=== PATIENT | male | born 1970 | race Caucasian/White ===

== ENCOUNTER → 2017-03-30 | Outpatient (REF) | payer OTHER ==
--- NOTE | 2017-03-30 15:24 | REP ---
Clinical: Left lower extremity pain and swelling . Technique: Silver scale and color Doppler evaluation using linear high frequency transducer. Findings: Ultrasound examination of the left lower extremity deep venous structures from the common femoral vein to the popliteal vein demonstrates normal compressibility flow and wave patterns in response to respiration and augmentation. Marked subcutaneous soft tissue swelling noted. There is no evidence for deep venous thrombosis. Incidental note is made of inguinal lymph nodes measuring up to 4.7 x 1.9 x 1.8 cm. Impression: No evidence for deep venous thrombosis. Marked subcutaneous edematous changes. Signed by Dany Thakkar MD 03/30/2017 03:15 P
== END ==
LOC: M RAD 14:35
PROVIDERS: ATTEND Family Medicine
DX: R60.0 Localized edema (principal); M79.662 Pain in left lower leg; M79.89 Other specified soft tissue disorders

== ENCOUNTER 2018-11-17 11:25 | Observation (INO) | payer OTHER, MEDICARE ==
[~2018-11-17] VITALS: Ht 177.8 cm; Wt 135.1 kg
[2018-11-17] MEDS ORDERED: OXYC-517 PO (11:41)
[2018-11-17] MEDS ORDERED: COUM1TAB17 PO (11:41)
[2018-11-17] MEDS ORDERED: ACYC400T PO (11:41)
[2018-11-17] MEDS ORDERED: VENL150C43 (11:41)
[2018-11-17] MEDS ORDERED: MELO15TA28 (11:41)
[2018-11-17] MEDS ORDERED: CALC1TAB63 PO (11:41)
[2018-11-17] MEDS ORDERED: [UNRECOGNIZED DRUG - CODE] PO (11:41)
[2018-11-17] MEDS ORDERED: MAG400TA PO (11:41)
[2018-11-17] MEDS ORDERED: BUPR-365 PO (11:41)
[2018-11-17] MEDS ORDERED: OMEP-218 PO (11:41)
[2018-11-17] MEDS ORDERED: METH5TA PO (11:41)
[2018-11-17] MEDS ORDERED: TERA10CA3 PO (11:41)
[2018-11-17] MEDS ORDERED: SERO200T PO (11:41)
[2018-11-17] MEDS ORDERED: LOVE1INJ SC (11:41)
[2018-11-17] MEDS ORDERED: ZINC220C7 PO (11:41)
[2018-11-17] MEDS ORDERED: BACL10TA2 PO (11:41)
[2018-11-17] MEDS ORDERED: NS 1,000 ML IV ONE (12:00)
[2018-11-17 12:07] LABS: BASO # 0.1 10^3/uL (0.0-0.2); BASO % 0.8 % (0.0-1.0); EOS # 0.5 10^3/uL (0.0-0.50); EOS % 4.5 % (0.0-3.0); HEMATOCRIT 38.6 % (42.0-52.0); HEMOGLOBIN 13.3 g/dl (13.5-17.5); LYMPH # 2.9 10^3/uL (1.5-4.5); MEAN CORPUSCULAR HEMOGLOBIN 32.1 pg (27.0-33.0); MEAN CORPUSCULAR HGB CONC 34.5 g/dl (32.0-36.5); MEAN CORPUSCULAR VOLUME 93.2 fl (80.0-96.0); MONO % 8.8 % (0.0-5.0); NEUTROPHILS # 7.2 10^3/uL (1.8-7.7); NEUTROPHILS % 60.5 % (36.0-66.0); PLATELET COUNT, AUTOMATED 317 10^3/uL (150-450); RED BLOOD COUNT 4.14 10^6/uL (4.30-6.10); WHITE BLOOD COUNT 11.9 10^3/uL (4.0-10.0)
[2018-11-17 12:17] LABS: INR 1.16; PROTHROMBIN TIME 14.5 SECONDS (11.8-14.0)
[2018-11-17 12:33] LABS: BLOOD UREA NITROGEN 8 MG/DL (7-18); CALCIUM LEVEL 9.1 MG/DL (8.5-10.1); CARBON DIOXIDE LEVEL 30 MEQ/L (21-32); CHLORIDE LEVEL 102 MEQ/L (98-107); CK-MB VALUE MASS 2.6 NG/ML (<3.6); CPK CREATINE PHOSPHOKINASE 110 U/L (39-308); CREATININE FOR GFR 0.89 MG/DL (0.70-1.30); GLOMERULAR FILTRATION RATE > 60.0 (>60); GLUCOSE, FASTING 116 MG/DL (70-100); MB/CK RELATIVE INDEX 2.36 (< OR =4); POTASSIUM SERUM 4.2 MEQ/L (3.5-5.1); SODIUM LEVEL 141 MEQ/L (136-145); TROPONIN I < 0.02 NG/ML (< 0.10)
[2018-11-17] MEDS ORDERED: ISOVUE-370 76% 100ML VIAL (Q9967) As Ordered ONE (12:49)
--- NOTE | 2018-11-17 13:23 | REP ---
Clinical: Shortness of breath. Technique: Axial contrast enhanced images from the thoracic inlet to the upper abdomen using 100 ml Isovue 370 intravenous contrast material with multiplanar re-formations using pulmonary embolus technique. Findings: Satisfactory enhancement of the pulmonary vasculature is achieved. Pulmonary emboli are identified in the left main pulmonary artery extending into the left upper lobe, lingula and left lower lobe pulmonary arteries. Pulmonary emboli identified in the right main pulmonary artery extending into the proximal upper lobe pulmonary artery and right lower lobe pulmonary arteries. The bilateral lung blackman are relatively clear and without associated areas of consolidation or atelectasis. No pleural effusion. No pneumothorax. Tracheobronchial tree is patent. Thoracic aorta, heart and pericardium are normal. Surrounding musculoskeletal structures are intact. Impression: 1. Extensive bilateral pulmonary emboli are arising from the bilateral main pulmonary arteries. 2. No associated areas of consolidation/atelectasis or effusion. 3. Thoracic aorta and heart appear normal Electronically Signed by Dany Thakkar MD 11/17/2018 01:14 P
[2018-11-17] MEDS ORDERED: oxyCODONE 5MG TAB PO PRN (14:45)
[2018-11-17] MEDS ORDERED: PROP80TA PO (14:51)
[2018-11-17] MEDS ORDERED: MELO7.5T35 PO (14:51)
[2018-11-17] MEDS ORDERED: GABA800T4 PO (14:51)
[2018-11-17] MEDS ORDERED: VENL75CA2 PO (14:51)
[2018-11-17] MEDS ORDERED: BACL1TAB8 PO (14:51)
[2018-11-17] MEDS ORDERED: GUAI200T6 PO (14:51)
[2018-11-17] MEDS ORDERED: BRIN1TAB PO (14:51)
[2018-11-17] MEDS ORDERED: ZYLO300T6 PO (14:51)
[2018-11-17] MEDS ORDERED: ENOX100I3 SC (14:51)
[2018-11-17] MEDS ORDERED: KETO2CR TOP (14:51)
[2018-11-17] MEDS ORDERED: ENOX150I3 SC (15:01)
--- NOTE | 2018-11-17 15:09 | HPEPDOC ---
General Date of Admission Nov 17, 2018 at 14:18 Date of Service: Nov 17, 2018 Chief Complaint The patient is a 48-year-old male who presented to the emergency room with complaints of short ceramic History of Present Illness Patient is a 48-year-old male with a PMHx of HTN, DLP, Gout, Depr ession/ Anxiety, and chronic back pain who presented to the emergency room after expressing worsening shortness of breath since Wednesday. Patient was recently expressing left leg swelling and presented to the emergency room in [place] and was diagnosed with a DVT in his left lower extremity. Patient was advised to be on full anticoagulation with warfarin and Lovenox. Patient was advised not to use any nausea or anticoagulation given that his BMI was greater than 40. Patient reports that hes been having increasing shortness of breath since that day. Patient denies any immobility or trauma to his left leg. He reports that he takes Lovenox 135 mg twice a day and has taken his last dose this morning. Patient has taken 2 doses of warfarin at 5 mg for the last 2 days. Patient was also reported an extensive family history of pulmonary embolisms. He is noted that his paternal grandmother, father and daughter all have developed pulmonary embolisms. He denies chest pain or palpitations. He reports that he does have a cough but denies any significant production of sputum. Patient denies nausea, vomiting, abdominal pain, constipation, or discomfort with urination. Patient did report urgency and diarrhea that started today, described as watery. He denies any fevers or chills in the last 2 weeks. Patient does report that his weight has been consistent and his appetite is fairly normal. Home Medications Scheduled Allopurinol (Zyloprim) 300 Mg Tablet, 300 MG PO DAILY, (Reported) Baclofen (Baclofen) 10 Mg Tablet, 10 MG PO TID, (Reported) TAKES AM/MIDDAY/EVENING Baclofen (Baclofen) 10 Mg Tablet, 30 MG PO QHS, (Reported) Bupropion HCl (Bupropion Xl) 150 Mg Tab.er.24h, 150 MG PO DAILY, (Reported) Calcium Carbonate/Vitamin D3 (Calcium 600-Vit D3 400 Tablet) 1 Each Tablet, 1 TAB PO DAILY, (Reported) Enoxaparin Sodium (Enoxaparin Sodium) 150 Mg/1 Ml Syringe, 135 MG SC BID, (Reported) Fexofenadine HCl (Aller-Ease) 180 Mg Tablet, 180 MG PO DAILY, (Reported) Gabapentin (Gabapentin) 800 Mg Tablet, 800 MG PO TID, (Reported) Magnesium Oxide (Magnesium Oxide) 400 Mg Tablet, 400 MG PO DAILY, (Reported) Meloxicam (Meloxicam) 7.5 Mg Tablet, 15 MG PO DAILY, (Reported) Methadone HCl (Methadone HCl) 5 Mg Tablet, 5 MG PO BID, (Reported) Omeprazole (Omeprazole) 20 Mg Capsule.dr, 20 MG PO BID, (Reported) Oxycodone HCl (Oxycodone HCl) 5 Mg Tablet, 5 MG PO BID, (Reported) Propranolol HCl (Propranolol HCl) 80 Mg Tablet, 80 MG PO TID, (Reported) Quetiapine Fumarate (Seroquel) 200 Mg Tablet, 200 MG PO QHS, (Reported) Terazosin Hcl (Terazosin HCl) 10 Mg Capsule, 10 MG PO QHS, (Reported) Venlafaxine HCl (Venlafaxine HCl ER) 75 Mg Cap.er.24h, 75 MG PO DAILY, (Reported) Vortioxetine Hydrobromide (Trintellix) 5 Mg Tablet, 5 MG PO DAILY, (Reported) Warfarin Sodium (Coumadin) 5 Mg Tablet, 5 MG PO QPM, (Reported) Zinc Sulfate (Zinc Sulfate) 220 Mg Capsule, 220 MG PO DAILY, (Reported) Scheduled PRN Acyclovir (Acyclovir) 400 Mg Tablet, 400 MG PO TID PRN for COLD SORES, (Reported) Guaifenesin (Guaifenesin) 200 Mg Tablet, 200 MG PO Q4H PRN for CONGESTION, (Reported) Ketoconazole (Ketoconazole) 15 Gm Cream..g., 1 APLCT TOP BID PRN for RASH/ITCHING, (Reported) APPLY TO LEG Allergies Coded Allergies: No Known Allergies (Unverified , 11/17/18) Past Medical History Medical History HTN, DLP, Gout, Depression/ Anxiety, and chronic back pain Surgical History Sinus surgery September 2018 for deviated septum Right foot second digit and palpitations secondary to osteoarthritis, 02/2018 Vasectomy 2002 Family History - Mother with a history of weak heart - Father with a history of pulmonary embolisms Social History - Denies the use of alcohol, tobacco or illicit drugs - Denies recent travel or sick contacts - Lives alone. For the most part but does take care of his son on Wednesdays and s - Occupation; patient is currently disabled because of his depression and anxi ety Review of Systems Other systems 10 point review of systems complete, all negative otherwise stated in HPI Vital Signs - Vitals: BP 117/57, HR 64, RR 24, Sat 97%RA, Temp 97.3F - General: Lying in bed, No acute distress, Speaking in full sentences, AAOx3 - HEENT: NC, AT, PERRLA, EOMI - CVS: RRR, +S1S2 - Lungs: Fair air entry bilaterally, No appreciable wheezing / rales / rhonchi - Abdomen: Soft, Non-distended, Non-tender - Extremities: No lower extremity edema, No calf tenderness - Neuro: No focal motor or sensory deficit - Skin: No visible rashes Laboratory Data Labs 24H Laboratory Tests 2 11/17/18 11:56: Immature Granulocyte % (Auto) 1.4, White Blood Count 11.9H, Red Blood Count 4.14L, Hemoglobin 13.3L, Hematocrit 38.6L, Mean Corpuscular Volume 93.2, Mean Corpuscular Hemoglobin 32.1, Mean Corpuscular Hemoglobin Concent 34.5, Red Cell Distribution Width 13.4, Platelet Count 317, Neutrophils (%) (Auto) 60.5, Lymphocytes (%) (Auto) 24.0, Monocytes (%) (Auto) 8.8H, Eosinophils (%) (Auto) 4.5H, Basophils (%) (Auto) 0.8, Neutrophils # (Auto) 7.2, Lymphocytes # (Auto) 2.9, Monocytes # (Auto) 1.0H, Eosinophils # (Auto) 0.5, Basophils # (Auto) 0.1, Nucleated Red Blood Cells % (auto) 0.3H, Prothrombin Time 14.5H, Prothromb Time International Ratio 1.16, Anion Gap 9, Glomerular Filtration Rate > 60.0, Blood Urea Nitrogen 8, Creatinine 0.89, Sodium Level 141, Potassium Level 4.2, Chloride Level 102, Carbon Dioxide Level 30, Calcium Level 9.1, Total Creatine Kinase 110, Creatine Kinase MB 2.6, Creatine Kinase MB Relative Index 2.36, Troponin I < 0.02 CBC/BMP Laboratory Tests 11/17/18 11:56 Red Blood Count 4.14 L, Mean Corpuscular Volume 93.2, Mean Corpuscular Hemoglobin 32.1, Mean Corpuscular Hemoglobin Concent 34.5, Red Cell Distribution Width 13.4, Neutrophils (%) (Auto) 60.5, Lymphocytes (%) (Auto) 24.0, Monocytes (%) (Auto) 8.8 H, Eosinophils (%) (Auto) 4.5 H, Basophils (%) (Auto) 0.8, Neutrophils # (Auto) 7.2, Lymphocytes # (Auto) 2.9, Monocytes # (Auto) 1.0 H, Eosinophils # (Auto) 0.5, Basophils # (Auto) 0.1, Calcium Level 9.1, Total Creatine Kinase 110 Plan / VTE VTE Prophylaxis Ordered?: Yes Plan Plan Shortness of breath with exertion - likely 2/2 pulmonary embolism - likely 2/2 DVT at [facility] - Patient was recently diagnosed with a DVT of his left lower extremity - Patient has extensive family history of blood clots on his paternal side - Has been on Lovenox and Coumadin as an outpatient - INR is subtherapeutic - CTA Chest 11/17: 1. Extensive bilateral pulmonary emboli are arising from the bilateral main pulmonary arteries. 2. No associated areas of conso lidation/atelectasis or effusion. 3. Thoracic aorta and heart appear normal - Will check hypercoagubility workup - Will continue with therapeutic dosing of Lovenox and increase Coumadin to 10 mg - Will order physical therapy for ambulation assistance HTN - BP appears well controlled - c/w Propranolol DLP Gout Depression/ Anxiety - Will c/w Venlafaxine, Bupropion, Terazosin, Quetiapine Chronic back pain - Will c/w Meloxicam, Baclofen and Gabapentin - c/w Methadone and Oxycodone GERD - c/w Omeprazole DVT prophylaxis - Will c/w full anticoagulation / bridge JOSE LUIS VERDUZCO MD Nov 17, 2018 15:09
--- NOTE | 2018-11-17 15:55 | ECGEPIP ---
[facility] - ED Test Date: 2018-11-17 Pat Name: MAURICE GOODE Department: Room: - Gender: Male Release Of Information Clerk: CHINEDU : [id number] Requested By: MAURICE QUESADA PA-C. Order Number: [id number] Reading MD: Renu Flores Measurements Intervals [place] Rate: 63 P: 58 NJ: 170 QRS: QRSD: 96 T: QT: 424 QTc: 436 Interpretive Statements SINUS RHYTHM NSTTW abnormalities No prior Electronically Signed on 11-17-2018 15:54:57 EDT by Renu Flores
[2018-11-17] MEDS: GABAPENTIN 400 MG CAP PO SCH ×2 (16:19→21:17)
[2018-11-17] MEDS: PROPRANOLOL 20 MG TAB PO SCH ×2 (16:20→21:17)
[2018-11-17 17:00] VITALS: BP 140/68
[2018-11-17] MEDS ORDERED: WARFARIN SOD 5 MG TAB PO SCH (17:00)
[2018-11-17] MEDS: BACLOFEN 10 MG TAB PO SCH (17:47)
[2018-11-17 19:38] LABS: CK-MB VALUE MASS 2.5 NG/ML (<3.6); CPK CREATINE PHOSPHOKINASE 86 U/L (39-308); MB/CK RELATIVE INDEX 2.91 (< OR =4); TROPONIN I < 0.02 NG/ML (< 0.10)
[2018-11-17 20:00] VITALS: BP 156/74
[2018-11-17 20:15] VITALS: BP 128/82
[2018-11-17] MEDS ORDERED: TERAZOSIN 5 MG CAP PO SCH (21:00)
[2018-11-17] MEDS ORDERED: BACLOFEN 10 MG TAB PO SCH (21:00)
[2018-11-17] MEDS ORDERED: QUEtiapine FUMARATE 200 MG TAB PO SCH (21:00)
[2018-11-17] MEDS: ENOXAPARIN 150 MG/ML SYR (J1650) SC SCH (21:16)
[2018-11-17] MEDS: OMEPRAZOLE 20 MG CAP PO SCH (21:18)
[2018-11-17] MEDS: METHADONE 5 MG TAB (S0109) PO SCH (21:18)
[2018-11-18] VITALS: BP 122/74
[2018-11-18 01:09] LABS: CK-MB VALUE MASS 2.5 NG/ML (<3.6); CPK CREATINE PHOSPHOKINASE 88 U/L (39-308); MB/CK RELATIVE INDEX 2.84 (< OR =4); TROPONIN I < 0.02 NG/ML (< 0.10)
[2018-11-18 04:00] VITALS: BP 128/72
[2018-11-18 04:58] LABS: BASO # 0.1 10^3/uL (0.0-0.2); BASO % 0.7 % (0.0-1.0); EOS # 0.6 10^3/uL (0.0-0.50); EOS % 5.3 % (0.0-3.0); HEMATOCRIT 36.1 % (42.0-52.0); HEMOGLOBIN 12.6 g/dl (13.5-17.5); LYMPH # 3.3 10^3/uL (1.5-4.5); LYMPH % 27.9 % (24.0-44.0); MEAN CORPUSCULAR HEMOGLOBIN 31.3 pg (27.0-33.0); MEAN CORPUSCULAR HGB CONC 34.9 g/dl (32.0-36.5); MEAN CORPUSCULAR VOLUME 89.6 fl (80.0-96.0); MONO % 8.9 % (0.0-5.0); NEUTROPHILS # 6.5 10^3/uL (1.8-7.7); PLATELET COUNT, AUTOMATED 304 10^3/uL (150-450); RED BLOOD COUNT 4.03 10^6/uL (4.30-6.10); WHITE BLOOD COUNT 11.7 10^3/uL (4.0-10.0)
[2018-11-18 05:08] LABS: INR 1.4; PROTHROMBIN TIME 16.9 SECONDS (11.8-14.0)
[2018-11-18 05:18] LABS: BLOOD UREA NITROGEN 8 MG/DL (7-18); CALCIUM LEVEL 8.3 MG/DL (8.5-10.1); CARBON DIOXIDE LEVEL 31 MEQ/L (21-32); CHLORIDE LEVEL 103 MEQ/L (98-107); GLOMERULAR FILTRATION RATE > 60.0 (>60); GLUCOSE, FASTING 125 MG/DL (70-100); MAGNESIUM LEVEL 1.8 MG/DL (1.8-2.4); POTASSIUM SERUM 3.7 MEQ/L (3.5-5.1); SODIUM LEVEL 141 MEQ/L (136-145)
[2018-11-18 08:00] VITALS: BP 149/65
[2018-11-18] MEDS ORDERED: MELOXICAM (MOBIC) 7.5 MG TAB PO SCH (09:00)
[2018-11-18] MEDS ORDERED: MAGNESIUM OXIDE 400 MG TAB (MAG-OX) PO SCH (09:00)
[2018-11-18] MEDS ORDERED: ZINC SULFATE 220 MG CAP PO SCH (09:00)
[2018-11-18] MEDS ORDERED: VENLAFAXINE **XR** 75MG CAPSULE PO SCH (09:00)
[2018-11-18] MEDS ORDERED: CALCIUM/VITAMIN D 500 MG TAB PO SCH (09:00)
[2018-11-18] MEDS ORDERED: buPROPion **XL** TABLET 150MG (WELLBUTRIN XL) PO SCH (09:00)
[2018-11-18] MEDS ORDERED: ALLOPURINOL 300 MG TAB PO SCH (09:00)
[2018-11-18] MEDS: ENOXAPARIN 150 MG/ML SYR (J1650) SC SCH (09:19)
[2018-11-18 09:20] VITALS: BP 149/65
[2018-11-18] MEDS: OMEPRAZOLE 20 MG CAP PO SCH (09:20)
[2018-11-18] MEDS: PROPRANOLOL 20 MG TAB PO SCH (09:20)
[2018-11-18] MEDS: GABAPENTIN 400 MG CAP PO SCH (09:20)
[2018-11-18] MEDS: METHADONE 5 MG TAB (S0109) PO SCH (09:21)
[2018-11-18] MEDS: BACLOFEN 10 MG TAB PO SCH (09:21)
[2018-11-18] MEDS ORDERED: COUM1TAB17 PO ×2 (09:42→10:19)
--- NOTE | 2018-11-18 10:06 | DS.PDOC ---
Discharge Summary General Date of Admission Nov 17, 2018 at 14:18 Date of Discharge 11/18/2018 Discharge Summary PROCEDURES PERFORMED DURING STAY: [None]. ADMISSION / DISCHARGE DIAGNOSIS: Shortness of breath with exertion - likely 2/2 pulmonary embolism - likely 2/2 DVT at [facility] HTN DLP Gout Depression/ Anxiety Chronic back pain GERD DVT prophylaxis COMPLICATIONS/CHIEF COMPLAINT: Shortness of breath HISTORY OF PRESENT ILLNESS: Patient is a 48-year-old male with a PMHx of HTN, DLP, Gout, Dep ression/ Anxiety, and chronic back pain who presented to the emergency room after expressing worsening shortness of breath since Wednesday. Patient was recently expressing left leg swelling and presented to the emergency room in [place] and was diagnosed with a DVT in his left lower extremity. Patient was advised to be on full anticoagulation with warfarin and Lovenox. Patient was advised not to use any novel anticoagulation given that his BMI was greater than 40. In the emergency room a pulmonary embolism and was admitted to the hospital service for further evaluation and treatment. Patient was seen and examined at the bedside. Currently patient denies any significant problems overnight. He denies chest pain or palpitations. Patient does report mild shortness of breath, but does not require any sublingual oxygen. He denies nausea, vomiting, abdominal pain, constipation or diarrhea. HOSPITAL COURSE: Shortness of breath with exertion - likely 2/2 pulmonary embolism - likely 2/2 DVT at [facility] - Patient was recently diagnosed with a DVT of his left lower extremity - Patient has extensive family history of blood clots on his paternal side - Has been on Lovenox and Coumadin as an outpatient - INR is subtherapeutic; improving - CTA Chest 11/17: 1. Extensive bilateral pulmonary emboli are arising from the bilateral main pulmonary arteries. 2. No associated areas of consolidation/atelectasis or effusion. 3. Thoracic aorta and heart appear normal - Hypercoagubility workup pending - c/w therapeutic dosing of Lovenox and increase Coumadin to 10 mg HTN - BP appears well controlled - c/w Propranolol DLP Gout - c/w Allopurinol Depression/ Anxiety - c/w Venlafaxine, Bupropion, Terazosin, Quetiapine Chronic back pain - c/w Meloxicam, Baclofen and Gabapentin - c/w Methadone and Oxycodone GERD - c/w Omeprazole DVT prophylaxis - Will c/w full anticoagulation / bridge DISCHARGE MEDICATIONS: Please see below. ALLERGIES: Please see below. PHYSICAL EXAMINATION ON DISCHARGE: Vitals (See below) General: Lying in bed, no acute distress, comfortable, AAOx3 HEENT: NC, AT CVS: RRR, +S1S2 Lungs: Fair air entry b/l, no appreciable wheezing / rhonchi / rales Abdomen: Soft, ND, NT Extremities: - Edema, - Calf tenderness LABORATORY DATA: Please see below. ACTIVITY: [As tolerated]. DISCHARGE PLAN: Please follow up with Dr. Roya Juan at the INR clinic Please remain complaint with treatment plan and medications Return to the ER if you experience any problems DISPOSITION: Home DISCHARGE CONDITION: [Stable]. TIME SPENT ON DISCHARGE: 34 minutes Vital Signs/I&Os Vital Signs Date Time Temp Pulse Resp B/P (MAP) Pulse Ox O2 Delivery O2 Flow Rate FiO2 11/18/18 09:20 69 149/65 11/18/18 08:00 97.5 20 95 11/17/18 11:26 Room Air I&O- Last 24 Hours up to 6 AM 11/18/18 06:00 Intake Total 1370 ml Output Total 0 ml Balance 1370 ml Laboratory Data Labs 24H Laboratory Tests 2 11/17/18 11:56: Immature Granulocyte % (Auto) 1.4, White Blood Count 11.9H, Red Blood Count 4.14L, Hemoglobin 13.3L, Hematocrit 38.6L, Mean Corpuscular Volume 93.2, Mean Corpuscular Hemoglobin 32.1, Mean Corpuscular Hemoglobin Concent 34.5, Red Cell Distribution Width 13.4, Platelet Count 317, Neutrophils (%) (Auto) 60.5, Ly mphocytes (%) (Auto) 24.0, Monocytes (%) (Auto) 8.8H, Eosinophils (%) (Auto) 4.5H, Basophils (%) (Auto) 0.8, Neutrophils # (Auto) 7.2, Lymphocytes # (Auto) 2.9, Monocytes # (Auto) 1.0H, Eosinophils # (Auto) 0.5, Basophils # (Auto) 0.1, Nucleated Red Blood Cells % (auto) 0.3H, Prothrombin Time 14.5H, Prothromb Time International Ratio 1.16, Anion Gap 9, Glomerular Filtration Rate > 60.0, Blood Urea Nitrogen 8, Creatinine 0.89, Sodium Level 141, Potassium Level 4.2, Chloride Level 102, Carbon Dioxide Level 30, Calcium Level 9.1, Total Creatine Kinase 110, Creatine Kinase MB 2.6, Creatine Kinase MB Relative Index 2.36, Troponin I < 0.02 11/17/18 15:38: Erythrocyte Sedimentation Rate 39H, C-Reactive Protein, Quantitative 3.26H 11/17/18 18:58: Total Creatine Kinase 86, Creatine Kinase MB 2.5, Creatine Kinase MB Relative Index 2.91, Troponin I < 0.02 11/18/18 00:11: Total Creatine Kinase 88, Creatine Kinase MB 2.5, Creatine Kinase MB Relative Index 2.84, Troponin I < 0.02 11/18/18 04:37: Immature Granulocyte % (Auto) 1.2, White Blood Count 11.7H, Red Blood Count 4.03L, Hemoglobin 12.6L, Hematocrit 36.1L, Mean Corpuscular Volume 89.6, Mean Corpuscular Hemoglobin 31.3, Mean Corpuscular Hemoglobin Concent 34.9, Red Cell Distribution Width 13.4, Platelet Count 304, Neutrophils (%) (Auto) 56.0, Lymphocytes (%) (Auto) 27.9, Monocytes (%) (Auto) 8.9H, Eosinophils (%) (Auto) 5.3H, Basophils (%) (Auto) 0.7, Neutrophils # (Auto) 6.5, Lymphocytes # (Auto) 3.3, Monocytes # (Auto) 1.0H, Eosinophils # (Auto) 0.6H, Basophils # (Auto) 0.1, Nucleated Red Blood Cells % (auto) 0.2H, Prothrombin Time 16.9H, Prothromb Time International Ratio 1.40, Anion Gap 7L, Glomerular Filtration Rate > 60.0, Blood Urea Nitrogen 8, Creatinine 0.80, Sodium Level 141, Potassium Level 3.7, Chloride Level 103, Carbon Dioxide Level 31, Calcium Level 8.3L, Magnesium Level 1.8 CBC/BMP Laboratory Tests 11/17/18 11:56 Red Blood Count 4.14 L, Mean Corpuscular Volume 93.2, Mean Corpuscular Hemoglobin 32.1, Mean Corpuscular Hemoglobin Concent 34.5, Red Cell Distribution Width 13.4, Neutrophils (%) (Auto) 60.5, Lymphocytes (%) (Auto) 24.0, Monocytes (%) (Auto) 8.8 H, Eosinophils (%) (Auto) 4.5 H, Basophils (%) (Auto) 0.8, Neutrophils # (Auto) 7.2, Lymphocytes # (Auto) 2.9, Monocytes # (Auto) 1.0 H, Eosinophils # (Auto) 0.5, Basophils # (Auto) 0.1, Calcium Level 9.1, Total Creatine Kinase 110 11/18/18 04:37 Red Blood Count 4.03 L, Mean Corpuscular Volume 89.6, Mean Corpuscular Hemoglobi n 31.3, Mean Corpuscular Hemoglobin Concent 34.9, Red Cell Distribution Width 13.4, Neutrophils (%) (Auto) 56.0, Lymphocytes (%) (Auto) 27.9, Monocytes (%) (Auto) 8.9 H, Eosinophils (%) (Auto) 5.3 H, Basophils (%) (Auto) 0.7, Neutrophils # (Auto) 6.5, Lymphocytes # (Auto) 3.3, Monocytes # (Auto) 1.0 H, Eosinophils # (Auto) 0.6 H, Basophils # (Auto) 0.1, Calcium Level 8.3 L Discharge Medications Scheduled Allopurinol (Zyloprim) 300 Mg Tablet, 300 MG PO DAILY, (Reported) Baclofen (Baclofen) 10 Mg Tablet, 10 MG PO TID, (Reported) TAKES AM/MIDDAY/EVENING Baclofen (Baclofen) 10 Mg Tablet, 30 MG PO QHS, (Reported) Bupropion HCl (Bupropion Xl) 150 Mg Tab.er.24h, 150 MG PO DAILY, (Reported) Calcium Carbonate/Vitamin D3 (Calcium 600-Vit D3 400 Tablet) 1 Each Tablet, 1 TAB PO DAILY, (Reported) Enoxaparin Sodium (Enoxaparin Sodium) 150 Mg/1 Ml Syringe, 135 MG SC BID, (Reported) Fexofenadine HCl (Aller-Ease) 180 Mg Tablet, 180 MG PO DAILY, (Reported) Gabapentin (Gabapentin) 800 Mg Tablet, 800 MG PO TID, (Reported) Magnesium Oxide (Magnesium Oxide) 400 Mg Tablet, 400 MG PO DAILY, (Reported) Meloxicam (Meloxicam) 7.5 Mg Tablet, 15 MG PO DAILY, (Reported) Methadone HCl (Methadone HCl) 5 Mg Tablet, 5 MG PO BID, (Reported) Omeprazole (Omeprazole) 20 Mg Capsule.dr, 20 MG PO BID, (Reported) Oxycodone HCl (Oxycodone HCl) 5 Mg Tablet, 5 MG PO BID, (Reported) Propranolol HCl (Propranolol HCl) 80 Mg Tablet, 80 MG PO TID, (Reported) Quetiapine Fumarate (Seroquel) 200 Mg Tablet, 200 MG PO QHS, (Reported) Terazosin Hcl (Terazosin HCl) 10 Mg Capsule, 10 MG PO QHS, (Reported) Venlafaxine HCl (Venlafaxine HCl ER) 75 Mg Cap.er.24h, 75 MG PO DAILY, (Reported) Vortioxetine Hydrobromide (Trintellix) 5 Mg Tablet, 5 MG PO DAILY, (Reported) Warfarin Sodium (Coumadin) 5 Mg Tablet, 10 MG PO QPM Zinc Sulfate (Zinc Sulfate) 220 Mg Capsule, 220 MG PO DAILY, (Reported) Scheduled PRN Acyclovir (Acyclovir) 400 Mg Tablet, 400 MG PO TID PRN for COLD SORES, (Reported) Guaifenesin (Guaifenesin) 200 Mg Tablet, 200 MG PO Q4H PRN for CONGESTION, (Reported) Ketoconazole (Ketoconazole) 15 Gm Cream..g., 1 APLCT TOP BID PRN for RASH/ITCHING, (Reported) APPLY TO LEG Allergies Coded Allergies: No Known Allergies (Unverified , 11/17/18) OJSE LUIS VERDUZCO MD Nov 18, 2018 10:06
[2018-11-23 10:01] LABS: DRVV SCREEN 49.7 SEC
[2018-11-23 10:06] LABS: ANCA-ATYPICAL <1:20 titer (Neg:<1:20); ANTI THROMBIN 3 ANTIGEN IMMUNO 91 % (72-124); ANTI THROMBIN 3 FUNCT ACTIVITY 87 % (75-135); ANTINUCLEAR ANTIBODIES DIRECT Negative (Negative); CARDIOLIPIN IGA ANTIBODY <9 APL U/mL (0-11); CARDIOLIPIN IGG ANTIBODY <9 GPL U/mL (0-14); CARDIOLIPIN IGM ANTIBODY 15 MPL U/mL (0-12); CYTOPLASMIC NEUTROP AB ANCA-C <1:20 titer (Neg:<1:20); HOMOCYST(E)INE SERUM 6.1 umol/L (0.0-15.0); PERINUCLEAR AB ANCA-P <1:20 titer (Neg:<1:20); PROTEIN C ANTIGEN 79 % (60-150); PROTEIN S ANTIGEN FREE 153 % (57-157); PROTEIN S ANTIGEN TOTAL 112 % (60-150); SJOGREN'S ANTI SS-A <0.2 AI (0.0-0.9); SJOGREN'S ANTI SS-B <0.2 AI (0.0-0.9)
[2018-11-23 10:20] LABS: PTT LUPUS TYPE ANTICOAG SCREEN 1.2 (0-1.2)
[2018-11-23 10:29] LABS: DRVV CONFIRM 39.2 SEC
[2018-11-23 10:34] LABS: NORMALIZED RATIO 1.2 (0.00-1.20)
== END 2018-11-18 11:28 | disposition home or self-care (01) ==
LOC: M ED 11:25 → M ED INP 14:18 → M PCU 16:58
PROVIDERS: ADMIT Internal Medicine; ATTEND Internal Medicine
DX: I26.99 Other pulmonary embolism without acute cor pulmonale (principal); I10 Essential (primary) hypertension; I82.402 Acute embolism and thrombosis of unspecified deep veins of left lower extremity; E78.49 Other hyperlipidemia; M10.9 Gout, unspecified; F41.9 Anxiety disorder, unspecified; F32.9 Major depressive disorder, single episode, unspecified; M54.5 Low back pain; K21.9 Gastro-esophageal reflux disease without esophagitis; Z79.01 Long term (current) use of anticoagulants; Z79.899 Other long term (current) drug therapy
CPT/HCPCS: 36415; 71275; 80048; 81240; 81241; 82550; 82553; 83090; 83735; 84484; 85025; 85300; 85301; 85302; 85305; 85306; 85598; 85610; 85613; 85652; 85730; 86038; 86140; 86147; 86235; 86256; 93005; 96372; 96374; 99285; G0378; J1650; Q9967

== ENCOUNTER → 2020-05-14 | Outpatient (CLI) | payer SELFPAY ==
[~2020-05-14] MED LIST: ACYC400T PO; BACL10TA2 PO; BACL1TAB8 PO; BRIN1TAB PO; BUPR-365 PO; CALC1TAB63 PO; COUM1TAB17 PO; ENOX100I3 SC; ENOX150I3 SC; GABA800T4 PO; GUAI200T6 PO; KETO2CR TOP; LOVE1INJ SC; MAG400TA PO; MELO15TA28; MELO7.5T35 PO; METH5TA PO; OMEP-218 PO; OXYC-517 PO; PROP80TA PO; SERO200T PO; TERA10CA3 PO; VENL150C43; VENL75CA2 PO; ZINC220C7 PO; ZYLO300T6 PO; [UNRECOGNIZED DRUG - CODE] PO
== END ==
LOC: M LABSMTC 09:41
PROVIDERS: ATTEND Pediatrics
DX: Z20.828 Contact with and (suspected) exposure to other viral communicable diseases (principal)

== ENCOUNTER → 2021-02-22 | Outpatient (CLI) | payer OTHER ==
[~2021-02-22] MED LIST changes: +ACYC1TAB PO; -ACYC400T PO; +ALLO10TA PO; +ATOR1TAB19 PO; +CETI10TA4 PO; +DULO1CAP4 PO; +ELIQ5TAB PO; -MAG400TA PO; +MAGN400T35 PO; +SUMA100T2 PO
== END ==
LOC: M LABSMTC 09:25
PROVIDERS: ATTEND Anesthesiology
DX: Z01.818 Encounter for other preprocedural examination (principal); Z11.52 Encounter for screening for COVID-19

== ENCOUNTER 2021-02-27 07:54 | Day surgery (SDC) | payer OTHER ==
[~2021-02-27] VITALS: Ht 177.8 cm; Wt 131.5 kg
[~2021-02-27 07:54] MED LIST changes: +NS 1,000 ML IV ONE
--- OUTSIDE RECORDS SUMMARY | 2021-02-27 07:59 | CCD | Continuity of Care Document ---
Author Author [facility] Organization Unknown Address [address] [place] [id number] Phone [phone] Care Team Providers Care Flask Handler Name Role Phone Negrito Linton M.D. [facility] [phone] Problems Active Problems Provider Date Allergic rhinitis due to pollen Negrito Isbell DO Onset: 09/28/2018 Allergic rhinitis due to animals Negrito Isbell DO Onset : 09/28/2018 Chronic sinusitis Negrito Isbell DO Onset: 09/28/2018 Chronic allergic conjunctivitis Negrito Isbell DO Onset: 09/28/2018 Social History Type Date Description Comments Sex Unknown Tobacco Use Reviewed: 11/28/20 Patient has never smoked Smoking Status Reviewed: 11/28/20 Patient has never smoked Allergies, Adverse Reactions, Alerts Active Allergies Criticality Reaction | Severity Comments Date Flunisolide Unable to assess criticality 05/31/2018 Medications Active Medications SIG Qnty Indications Ordering Provide r Date Fluticasone Propionate 50mcg/Act Suspension 1-2 sprays ea. nostril once daily as needed J30.1 Unknown J30.89 J30.81 HM Iron 200(65Fe) mg Tablets 1 tablet once a day Unknown Lycopene 10mg Capsules 1 capsule once a day Unknown L-Carnitine 500mg Capsules 1 capsule once a day Unknown Super B Complex/Vitamin C Tablets 1 tablet once a day Unknown Warfarin Sodium 5mg Tablets 1 by mouth every day Unknown Diclofenac Sodium 1% Gel 2 grams twice a day as needed Unknown Ammonium Lactate 12% Lotion Apply to skin twice a day Unknown Trintellix 10mg Tablets 1 tablet once a day Unknown Metformin HCL 500mg Tablets 1 tablet twice a day Unknown Sodium Chloride 0.65% Solution as needed Unknown Duloxetine HCL 20mg Caps DR Part 2 tablets once a day Unknown HM Cetirizine HCL 10mg Tablets 1 by mouth every day J30.1 Unknown J30.89 J30.81 Azelastine HCL (Nasal) 137mcg/Floydada Solution spray 2 sprays into each nostril twice a day Unknown Eucerin Original Healing Soothing Repair Lotion apply to skin daily Unknown 00 Ginkgo 60mg Tablets 3 capsules once a day Unknown Magnesium Oxide 400mg Tablets 1qD Unknown Methadone HCL 5mg Tablets Unknown Gabapentin 800mg Tablets 1 ti d Unknown Fluocinonide 0.05% Ointment Unknown SSD 1% Cream Unknown Baclofen 10mg Tablets Unknown Allopurinol 300mg Tablets 1qD Unknown Cinnamon 500mg Tablets 8 caps ules Unknown Eql Coq10 200mg Capsules 1 capsule once a day Unknown Atorvastatin Calcium 20mg Tablets Unknown Iodosorb 0.9% Gel Unknown Eliquis 5mg Tablets Unknown Guaifenesin 200mg Tablets Unknown Terazosin HCL 10mg Capsules Unknown Melatonin 10mg Tablets Sub 2 tablets by mouth one hour before bed Unknown Terazosin HCL 5mg Capsules 1 capsules once a day Unknown Benadryl Allergy 25mg Capsules 2 by mouth once a day J30.1 Unknown J30.89 J30.[address] 1 capsule twice a day Unknown Acyclovir 400mg Tablets 1 tablet tree times a day as needed Unknown Tylenol 500mg Tablets 2 table ts tid Unknown Quetiapine Fumarate 200mg Tablets 1 tablet once a day Unknown Zinc Sulfate 220mg Capsules 1 capsule once a day Unknown Sumatriptan Succinate 100mg Tablet s 1 tablet once a day as needed Unknown Calcium 600 600mg Tablets 1 by mouth every day Unknown Sudafed Pe Congestion 10mg Tablets 2 tablets qHS Unknown Cranberry Juice Extract 1000mg Cap sules 1 capsule once a day Unknown Chromium 1000mcg Tablets 2 tablet once a day Unknown Glucosamine Chondroitin MSM Double Stren gth [id number] Tablets 2 tablet once a day Unknown Prevagen Extra Strength 20mg Capsu les 2 capsule once a day Unknown Propranolol HCL 80mg Tablets 1 tablet three times a day Unknown L-Arginine 500mg Capsules 1 capsule once a day Unknown Biotin Maximum 83050koh Tablets Di spers 1 tablet once a day Unknown Acetyl L-Carnitine/Alpha Lipoic Acid 400-200mg Capsules 1 capsule once a day Unknown 000 GNP Potassium 99mg Tablets 3 tablet once a day Unknown Faroese Ginseng 100mg Capsules 2 capsules once a day Unknown Vitamin C 1000mg Tablets 3 tablets once a day Unknown Acai Craig 500mg Capsules 1 capsule once a day Unknown L-Lysine 500mg Capsules 1 capsule once a day Unknown Turmeric Curcumin 500mg Capsules 1 capsule once a day Unknown Vitamin D-3 5000Unit Tablets 1 by mouth every day Unknown Beta Carotene [id number] Capsules 1 capsule once a day Unknown L-Glutamine 500mg Capsules 1 capsule once a day Unknown Preservision/Lutein Capsules 1 capsule once a day Unknown Aloe Vera Moisturizing 99.5% Gel once a day Unknown Medications Administered in Office Medication SIG Qnty Indications Ordering Provider Date Covid-19 vaccine, Unspecified Inj ection Unknown 08/17/2020 Covid-19 vaccine, Unspecified Inj ection Unknown 07/18/2020 Immunizations Description No Information Available Vital Signs Date Vital Result Comment 11/28/2020 9:54am Respiratory Rate 16 /min Heart Rate 68 /min BP Systolic 126 mmHg BP Diastolic 72 mmHg Height 70 inches 5'10" Weight 287.00 lb O2 % BldC Oximetry 98 % BMI (Body Mass Index) 41.2 kg/m2 07/18/2020 10:01am Respiratory Rate 15 /min Heart Rate 86 /min BP Systolic 134 mmHg left arm BP Diastolic 82 mmHg left arm Height 70 inches 5'10" Weight 296.50 lb Body Temperature 98.2 F O2 % BldC Oximetry 98 % BMI (Body Mass Index) 42.5 kg/m2 Results Description No Information Available Procedures Date Code Description Status 2021 72110 Multiple Injections-Admin. Compl eted 02/06/2021 [id number] Multiple Injections-Admin. Compl eted 01/23/2021 [id number] Multiple Injections-Admin. Compl eted 01/09/2021 78727 Multiple Injections-Admin. Compl eted 01/09/2021 16657 Multiple Injections-Admin. Compl eted 12/26/2020 [id number] Multiple Injections-Admin. Compl eted 12/12/2020 [id number] Multiple Injections-Admin. Compl eted 11/28/2020 [id number] Office Visit - Level 4 Completed 11/28/2020 [id number] Multiple Injections-Admin. Compl eted 11/14/2020 52002 Multiple Injections-Admin. Compl eted 11/14/2020 12648 Multiple Injections-Admin. Compl eted 10/31/2020 08245 Multiple Injections-Admin. Compl eted 10/17/2020 [id number] Multiple Injections-Admin. Compl eted 10/03/2020 94091 Multiple Injections-Admin. Compl eted 10/03/2020 48990 Multiple Injections-Admin. Compl eted 09/19/2020 [id number] Multiple Injections-Admin. Compl eted 09/19/2020 [id number] Multiple Injections-Admin. Compl eted 09/05/2020 96794 Multiple Injections-Admin. Compl eted 09/05/2020 [id number] Multiple Injections-Admin. Compl eted 08/22/2020 [id number] Multiple Injections-Admin. Compl eted Medical Devices Description No Information Available Encounters Description No Information Available Assessments Date Code Description Provider 2021 J30.1 Allergic rhinitis due to pollen Allergy Injections 2021 J30.1 Allergic rhinitis due to pollen [facility] 2021 J30.81 Allergic rhinitis due to animal (cat) (dog) hair and dander Allergy Injections 2021 J30.81 Allergic rhinitis due to animal (cat) (dog) hair and dander [facility] 2021 J30.89 Other allergic rhinitis Allergy Injections 2021 J30.89 Other allergic rhinitis [facility] 02/06/2021 J30.1 Allergic rhinitis due to pollen Allergy Injections 02/06/2021 J30.1 Allergic rhinitis due to pollen [facility] 02/06/2021 J30.81 Allergic rhinitis due to animal (cat) (dog) hair and dander Allergy Injections 02/06/2021 J30.81 Allergic rhinitis due to animal (cat) (dog) hair and dander [facility] 02/06/2021 J30.89 Other allergic rhinitis Allergy Injections 02/06/2021 J30.89 Other allergic rhinitis [facility] 01/23/2021 J30.1 Allergic rhinitis due to pollen Allergy Injections 01/23/2021 J30.1 Allergic rhinitis due to pollen [facility] 01/23/2021 J30.81 Allergic rhinitis due to animal (cat) (dog) hair and dander Allergy Injections 01/23/2021 J30.81 Allergic rhinitis due to animal (cat) (dog) hair and dander [facility] 01/23/2021 J30.89 Other allergic rhinitis Allergy Injections 01/23/2021 J30.89 Other allergic rhinitis [facility] 01/09/2021 J30.1 Allergic rhinitis due to pollen Allergy Injections 01/09/2021 J30.1 Allergic rhinitis due to pollen [facility] 01/09/2021 J30.81 Allergic rhinitis due to animal (cat) (dog) hair and dander Allergy Injections 01/09/2021 J30.81 Allergic rhinitis due to animal (cat) (dog) hair and dander [facility] 01/09/2021 J30.89 Other allergic rhinitis Allergy Injections 01/09/2021 J30.89 Other allergic rhinitis [facility] 12/26/2020 J30.1 Allergic rhinitis due to pollen Allergy Injections 12/26/2020 J30.1 Allergic rhinitis due to pollen [facility] 12/26/2020 J30.81 Allergic rhinitis due to animal (cat) (dog) hair and dander Allergy Injections 12/26/2020 J30.81 Allergic rhinitis due to animal (cat) (dog) hair and dander [facility] 12/26/2020 J30.89 Other allergic rhinitis Allergy Injections 12/26/2020 J30.89 Other allergic rhinitis [facility] 12/12/2020 J30.1 Allergic rhinitis due to pollen Allergy Injections 12/12/2020 J30.1 Allergic rhinitis due to pollen [facility] 12/12/2020 J30.81 Allergic rhinitis due to animal (cat) (dog) hair and dander Allergy Injections 12/12/2020 J30.81 Allergic rhinitis due to animal (cat) (dog) hair and dander [facility] 12/12/2020 J30.89 Other allergic rhinitis Allergy Injections 12/12/2020 J30.89 Other allergic rhinitis [facility] 12/12/2020 H10.45 Other chronic allergic conjuncti vitis Allergy Injections 12/12/2020 H10.45 Other chronic allergic conjuncti vitis [facility] 11/28/2020 J30.1 Allergic rhinitis due to pollen Allergy Injections 11/28/2020 J30.1 Allergic rhinitis due to pollen [facility] 11/28/2020 J30.81 Allergic rhinitis due to animal (cat) (dog) hair and dander Allergy Injections 11/28/2020 J30.1 Allergic rhinitis due to pollen Negrito Isbell, DO 11/28/2020 J30.89 Other allergic rhinitis Allergy Injections 11/28/2020 J30.81 Allergic rhinitis due to animal (cat) (dog) hair and dander [facility] 11/28/2020 H10.45 Other chronic allergic conjuncti vitis Allergy Injections 11/28/2020 J30.81 Allergic rhinitis due to animal (cat) (dog) hair and dander Negrito Isbell, DO 11/28/2020 J30.89 Other allergic rhinitis [facility] 11/28/2020 J30.89 Other allergic rhinitis Negrito Isbell, DO 11/28/2020 H10.45 Other chronic allergic conjuncti vitis [facility] 11/28/2020 H10.45 Other chronic allergic conjuncti vitis Negrito Isbell, DO 11/28/2020 J32.9 Chronic sinusitis, unspecified C Negrito rivera, DO 11/14/2020 J30.1 Allergic rhinitis due to pollen Allergy Injections 11/14/2020 J30.1 Allergic rhinitis due to pollen [facility] 11/14/2020 J30.81 Allergic rhinitis due to animal (cat) (dog) hair and dander Allergy Injections 11/14/2020 J30.81 Allergic rhinitis due to animal (cat) (dog) hair and dander [facility] 11/14/2020 J30.89 Other allergic rhinitis Allergy Injections 11/14/2020 J30.89 Other allergic rhinitis [facility] 10/31/2020 J30.1 Allergic rhinitis due to pollen Allergy Injections 10/31/2020 J30.1 Allergic rhinitis due to pollen [facility] 10/31/2020 J30.81 Allergic rhinitis due to animal (cat) (dog) hair and dander Allergy Injections 10/31/2020 J30.81 Allergic rhinitis due to animal (cat) (dog) hair and dander [facility] 10/31/2020 J30.89 Other allergic rhinitis Allergy Injections 10/31/2020 J30.89 Other allergic rhinitis [facility] 10/31/2020 H10.45 Other chronic allergic conjuncti vitis Allergy Injections 10/31/2020 H10.45 Other chronic allergic conjuncti vitis [facility] 10/17/2020 J30.1 Allergic rhinitis due to pollen Allergy Injections 10/17/2020 J30.1 Allergic rhinitis due to pollen [facility] 10/17/2020 J30.89 Other allergic rhinitis Allergy Injections 10/17/2020 J30.89 Other allergic rhinitis [facility] 10/17/2020 J30.81 Allergic rhinitis due to animal (cat) (dog) hair and dander Allergy Injections 10/17/2020 J30.81 Allergic rhinitis due to animal (cat) (dog) hair and dander [facility] 10/03/2020 J30.1 Allergic rhinitis due to pollen Allergy Injections 10/03/2020 J30.1 Allergic rhinitis due to pollen [facility] 10/03/2020 J30.89 Other allergic rhinitis Allergy Injections 10/03/2020 J30.89 Other allergic rhinitis [facility] 10/03/2020 J30.81 Allergic rhinitis due to animal (cat) (dog) hair and dander Allergy Injections 10/03/2020 J30.81 Allergic rhinitis due to animal (cat) (dog) hair and dander [facility] 09/19/2020 J30.1 Allergic rhinitis due to pollen Allergy Injections 09/19/2020 J30.1 Allergic rhinitis due to pollen [facility] 09/19/2020 J30.89 Other allergic rhinitis Allergy Injections 09/19/2020 J30.89 Other allergic rhinitis [facility] 09/19/2020 J30.81 Allergic rhinitis due to animal (cat) (dog) hair and dander Allergy Injections 09/19/2020 J30.81 Allergic rhinitis due to animal (cat) (dog) hair and dander [facility] 09/05/2020 J30.1 Allergic rhinitis due to pollen Allergy Injections 09/05/2020 J30.1 Allergic rhinitis due to pollen [facility] 09/05/2020 J30.89 Other allergic rhinitis Allergy Injections 09/05/2020 J30.89 Other allergic rhinitis [facility] 09/05/2020 J30.81 Allergic rhinitis due to animal (cat) (dog) hair and dander Allergy Injections 09/05/2020 J30.81 Allergic rhinitis due to animal (cat) (dog) hair and dander [facility] 08/22/2020 J30.1 Allergic rhinitis due to pollen Allergy Injections 08/22/2020 J30.1 Allergic rhinitis due to pollen [facility] 08/22/2020 J30.89 Other allergic rhinitis Allergy Injections 08/22/2020 J30.89 Other allergic rhinitis [facility] 08/22/2020 J30.81 Allergic rhinitis due to animal (cat) (dog) hair and dander Allergy Injections 08/22/2020 J30.81 Allergic rhinitis due to animal (cat) (dog) hair and dander [facility] Plan of Treatment Future Appointment(s):* 03/13/2021 9:00 am - [facility] * 02/27/2021 9:00 am - [facility] * 03/06/2021 9:15 am - [facility] * 02/20/2021 9:15 am - [facility] * 04/24/2021 9:45 am - Negrito Isbell DO at [facility] 11/28/2020 - Negrito Isbell DO* J30.1 Allergic rhinitis due to pollen* Comments:* To continue the allergy injections on a 2 week schedule. * Follow up:* recheck in April. * J30.81 Allergic rhinitis due to animal (cat) (dog) hair and dander * J30.89 Other allergic rhinitis * H10.45 Other chronic allergic conjunctivitis * J32.9 Chronic sinusitis, unspecified Functional Status Description No Information Available Mental Status Description No Information Available Referrals Refer to Reason for Referral Status Appt Date Negrito Isbell DO Created [address] [place] [address], [address] [place] [address] [phone]
--- OUTSIDE RECORDS SUMMARY | 2021-02-27 07:59 | CCD | Continuity of Care Document ---
Author Author [facility] Organization Unknown Address [address] [place] [address] Phone [phone] Care Team Providers Care Real Estate Services Coordinator Name Role Phone Negrito Linton M.D. [facility] [phone] Problems Active Problems Provider Date Allergic rhinitis [...] J30.1 Unknown J30.89 J30.81 Azelastine HCL (Nasal) 137mcg/Opal Solution spray 2 sprays into each nostril [...] Unknown Glucosamine Chondroitin MSM Double Stren gth [phone] Tablets 2 tablet once a day Unknown Prevagen Extra Strength 20mg Capsu les 2 capsule once a day Unknown Propranolol HCL 80mg Tablets 1 tablet three times a day Unknown L-Arginine 500mg Capsules 1 capsule once a day Unknown Biotin Maximum 45630suk Tablets Di spers 1 tablet once a day Unknown Acetyl L-Carnitine/Alpha Lipoic Acid 400-200mg Capsules 1 capsule once a day Unknown 000 GNP Potassium 99mg Tablets 3 tablet once a day Unknown Azeri Ginseng 100mg Capsules 2 capsules once a day Unknown Vitamin C 1000mg Tablets 3 tablets once a day Unknown Acai Craig 500mg Capsules 1 capsule once a day Unknown L-Lysine 500mg Capsules 1 capsule once a day Unknown Turmeric Curcumin 500mg Capsules 1 capsule once a day Unknown Vitamin D-3 5000Unit Tablets 1 by mouth every day Unknown Beta Carotene 97512Oipw Capsules 1 capsule once a day Unknown [...] Information Available Procedures Date Code Description Status 02/06/2021 49530 Multiple Injections-Admin. Compl eted 01/23/2021 02173 Multiple Injections-Admin. Compl eted 01/09/2021 69102 Multiple Injections-Admin. Compl eted 01/09/2021 60368 Multiple Injections-Admin. Compl eted 12/26/2020 46077 Multiple Injections-Admin. Compl eted 12/12/2020 38095 Multiple Injections-Admin. Compl eted 11/28/2020 85794 Office Visit - Level 4 Completed 11/28/2020 07847 Multiple Injections-Admin. Compl eted 11/14/2020 12805 Multiple Injections-Admin. Compl eted 11/14/2020 32633 Multiple Injections-Admin. Compl eted 10/31/2020 94179 Multiple Injections-Admin. Compl eted 10/17/2020 37706 Multiple Injections-Admin. Compl eted 10/03/2020 67316 Multiple Injections-Admin. Compl eted 10/03/2020 13103 Multiple Injections-Admin. Compl eted 09/19/2020 55383 Multiple Injections-Admin. Compl eted 09/19/2020 75071 Multiple Injections-Admin. Compl eted 09/05/2020 71404 Multiple Injections-Admin. Compl eted 09/05/2020 59543 Multiple Injections-Admin. Compl eted 08/22/2020 08292 Multiple Injections-Admin. Compl eted 08/08/2020 93649 Multiple Injections-Admin. Compl eted Medical Devices Description No Information Available Encounters Description No Information Available Assessments Date Code Description Provider 02/06/2021 J30.1 Allergic rhinitis due to pollen Allergy Injections 02/06/2021 J30.1 Allergic rhinitis due to pollen [facility] 02/06/2021 J30.81 Allergic rhinitis due to animal (cat) (dog) hair and dander Allergy Injections 02/06/2021 J30.81 Allergic rhinitis due to animal (cat) (dog) hair and dander [facility] 02/06/2021 J30.89 Other allergic rhinitis Allergy Injections 02/06/2021 J30.89 Other allergic rhinitis [facility] 01/23/2021 J30.1 Allergic rhinitis due to pollen Allergy Injections 01/23/2021 J30.1 Allergic rhinitis due to pollen [facility] 01/23/2021 J30.81 Allergic rhinitis due to animal (cat) (dog) hair and dander Allergy Injections 01/23/2021 J30.81 Allergic rhinitis due to animal (cat) (dog) hair and dander [facility] 01/23/2021 J30.89 Other allergic rhinitis Allergy Injections 01/23/2021 J30.89 Other allergic rhinitis Allergy Injections [facility] 01/09/2021 J30.1 Allergic rhinitis due to pollen Allergy Injections 01/09/2021 J30.1 Allergic rhinitis due to pollen [facility] 01/09/2021 J30.81 Allergic rhinitis due to animal (cat) (dog) hair and dander Allergy Injections 01/09/2021 J30.81 Allergic rhinitis due to animal (cat) (dog) hair and dander Allergy Injections [facility] 01/09/2021 J30.89 Other allergic rhinitis Allergy Injections 01/09/2021 J30.89 Other allergic rhinitis [facility] 12/26/2020 J30.1 Allergic rhinitis due to pollen Allergy Injections 12/26/2020 J30.1 Allergic rhinitis due to pollen [facility] 12/26/2020 J30.81 Allergic rhinitis due to animal (cat) (dog) hair and dander Allergy Injections 12/26/2020 J30.81 Allergic rhinitis due to animal (cat) (dog) hair and dander Allergy [facility] 12/26/2020 J30.89 Other allergic rhinitis Allergy Injections 12/26/2020 J30.89 Other allergic rhinitis All[facility] 12/12/2020 J30.1 Allergic rhinitis due to pollen Allergy Injections 12/12/2020 J30.1 Allergic rhinitis due to pollen [facility] 12/12/2020 J30.81 Allergic rhinitis due to animal (cat) (dog) hair and dander Allergy Injections 12/12/2020 J30.81 Allergic rhinitis due to animal (cat) (dog) hair and dander [facility] 12/12/2020 J30.89 Other allergic rhinitis Allergy Injections 12/12/2020 J30.89 Other allergic rhinitis [facility] 12/12/2020 H10.45 Other chronic allergic conjuncti vitis Allergy Injections 12/12/2020 H10.45 Other chronic allergic conjuncti vitis Allergy Injections [facility] 11/28/2020 J30.1 Allergic rhinitis due to pollen Allergy Injections 11/28/2020 J30.1 Allergic rhinitis due to pollen [facility] 11/28/2020 J30.81 Allergic rhinitis due to animal (cat) (dog) hair and dander Allergy Injections 11/28/2020 J30.1 Allergic rhinitis due to pollen Negrito Isbell, DO 11/28/2020 J30.89 Other allergic rhinitis Allergy Injections 11/28/2020 J30.81 Allergic rhinitis due to animal (cat) (dog) hair and dander Allergy Injections [facility] 11/28/2020 H10.45 Other chronic allergic conjuncti vitis Allergy Injections 11/28/2020 J30.81 Allergic rhinitis due to animal (cat) (dog) hair and dander Negrito Isbell, DO 11/28/2020 J30.89 Other allergic rhinitis [facility] 11/28/2020 J30.89 Other allergic rhinitis Negrito Isbell, DO 11/28/2020 H10.45 Other chronic allergic conjuncti vitis [facility] 11/28/2020 H10.45 Other chronic allergic conjuncti vitiNegrito Farris, DO 11/28/2020 J32.9 Chronic sinusitis, unspecified C Negrito rivera, DO 11/14/2020 J30.1 Allergic rhinitis due to pollen Allergy Injections 11/14/2020 J30.1 Allergic rhinitis due to pollen [facility] 11/14/2020 J30.81 Allergic rhinitis due to animal (cat) (dog) hair and dander Allergy Injections 11/14/2020 J30.81 Allergic rhinitis due to animal (cat) (dog) hair and dander [facility] 11/14/2020 J30.89 Other allergic rhinitis Allergy Injections 11/14/2020 J30.89 Other allergic rhinitis [facility] 10/31/2020 J30.1 Allergic rhinitis due to pollen Allergy Injections 10/31/2020 J30.1 Allergic rhinitis due to pollen [facility] 10/31/2020 J30.81 Allergic rhinitis due to animal (cat) (dog) hair and dander Allergy Injections 10/31/2020 J30.81 Allergic rhinitis due to animal (cat) (dog) hair and dander Allergy In[facility] 10/31/2020 J30.89 Other allergic rhinitis Allergy Injections 10/31/2020 J30.89 Other allergic rhinitis [facility]ergy [facility] 10/31/2020 H10.45 Other chronic allergic conjuncti vitis Allergy Injections 10/31/2020 H10.45 Other chronic allergic conjuncti vitis Allergy [facility] 10/17/2020 J30.1 Allergic rhinitis due to pollen Allergy Injections 10/17/2020 J30.1 Allergic rhinitis due to pollen [facility] 10/17/2020 J30.89 Other allergic rhinitis Allergy Injections 10/17/2020 J30.89 Other allergic rhinitis [facility] In[facility] 10/17/2020 J30.81 Allergic rhinitis due to animal (cat) (dog) hair and dander Allergy Injections 10/17/2020 J30.81 Allergic rhinitis due to animal (cat) (dog) hair and dander Allergy Injections [facility] 10/03/2020 J30.1 Allergic rhinitis due to pollen Allergy Injections 10/03/2020 J30.1 Allergic rhinitis due to pollen [facility] In[facility] 10/03/2020 J30.89 Other allergic rhinitis Allergy Injections 10/03/2020 J30.89 Other allergic rhinitis Allergy Injections [facility] 10/03/2020 J30.81 Allergic rhinitis due to animal (cat) (dog) hair and dander Allergy Injections 10/03/2020 J30.81 Allergic rhinitis due to animal (cat) (dog) hair and dander Allergy Injections [facility] 09/19/2020 J30.1 Allergic rhinitis due to pollen Allergy Injections 09/19/2020 J30.1 Allergic rhinitis due to pollen Allergy In[facility] 09/19/2020 J30.89 Other allergic rhinitis Allergy Injections 09/19/2020 J30.89 Other allergic rhinitis Allergy Injections [facility] 09/19/2020 J30.81 Allergic rhinitis due to animal (cat) (dog) hair and dander Allergy Injections 09/19/2020 J30.81 Allergic rhinitis due to animal (cat) (dog) hair and dander Allergy Injections [facility] 09/05/2020 J30.1 Allergic rhinitis due to pollen Allergy Injections 09/05/2020 J30.1 Allergic rhinitis due to pollen All[facility] In[facility] 09/05/2020 J30.89 Other allergic rhinitis Allergy Injections 09/05/2020 J30.89 Other allergic rhinitis Allergy Injections [facility] 09/05/2020 J30.81 Allergic rhinitis due to animal (cat) (dog) hair and dander Allergy Injections 09/05/2020 J30.81 Allergic rhinitis due to animal (cat) (dog) hair and dander Allergy In[facility] 08/22/2020 J30.1 Allergic rhinitis due to pollen Allergy Injections 08/22/2020 J30.1 Allergic rhinitis due to pollen Allergy In[facility] 08/22/2020 J30.89 Other allergic rhinitis Allergy Injections 08/22/2020 J30.89 Other allergic rhinitis Allergy Injections [facility] 08/22/2020 J30.81 Allergic rhinitis due to animal (cat) (dog) hair and dander Allergy Injections 08/22/2020 J30.81 Allergic rhinitis due to animal (cat) (dog) hair and dander Allergy In[facility] 08/08/2020 J30.1 Allergic rhinitis due to pollen Allergy In[facility] 08/08/2020 J30.89 Other allergic rhinitis Allergy Injections [facility] 08/08/2020 J30.81 Allergic rhinitis due to animal (cat) (dog) hair and dander [facility] Plan of Treatment Future Appointment(s):* 03/06/2021 9:15 am - [facility] * 02/20/2021 9:15 am - [facility] * 04/24/2021 9:45 am - Negrito Isbell DO at [facility] 11/28/2020 - Negrito Isbell DO* J30.1 Allergic [...] Status Appt Date Negrito Isbell DO Created [address] [place] [address], [address] [address] [phone]
--- OUTSIDE RECORDS SUMMARY | 2021-02-27 07:59 | CCD | Continuity of Care Document ---
Author Author [facility] Organization Unknown Address [address] [place] [address] Phone [phone] Care Team Providers Care Blanking Machine Operator Name Role Phone Negrito Linton M.D. [facility] [phone] Problems Active Problems Provider Date Allergic rhinitis [...] Status Reviewed: 11/28/20 Patient has never smoked Allergies and adverse reactions Active Allergies Criticality Reaction | Severity Comments Date Flunisolide Unable to assess criticality 05/31/2018 Medications Active Medications SIG Qnty Indications Ordering Provide r Date Prednisone 10mg Tablets 4 by mouth daily for 3 days, 3 by mouth daily for 3 days , 2 by mouth daily for 3 days then stop 27tabs J30.1 Negrito Isbell, 02/26/2021 J30.81 J30.89 Fluticasone Propionate 50mcg/Act Suspension 1-2 sprays ea. [...] J30.1 Unknown J30.89 J30.81 Azelastine HCL (Nasal) 137mcg/[place] Solution spray 2 sprays into each nostril twice a day Unknown Eucerin Original Healing Soothing Repair Lotion apply to skin daily Unknown 00 Aloe Vera Moisturizing 99.5% Gel once a day Unknown Magnesium Oxide 400mg [...] Tablets Unknown Terazosin HCL 10mg Capsules Unknown Prevagen Extra Strength 20mg Capsu les 2 capsule once a day Unknown Propranolol HCL 80mg Tablets 1 tablet three times a day Unknown Terazosin HCL 5mg Capsules 1 capsules [...] Sudafed Pe Congestion 10mg Tablets 2 tablets twice a day Unknown Cranberry Juice Extract 1000mg Cap sules 1 capsule once a day Unknown Chromium 1000mcg Tablets 2 tablet once a day Unknown Glucosamine Chondroitin MSM Double Stren gth [phone] Tablets 2 tablet once a day Unknown Ginkgo 60mg Tablets 3 capsules once a day Unknown Melatonin 10mg Tablets Sub 2 tablets by mouth one hour before bed Unknown L-Arginine 500mg Capsules 1 capsule once a day Unknown Biotin Maximum 73540kpp Tablets Di spers 1 tablet once a day Unknown Acetyl L-Carnitine/Alpha Lipoic Acid 400-200mg Capsules 1 capsule once a day Unknown 000 GNP Potassium 99mg Tablets 3 tablet once a day Unknown Setswana Ginseng 100mg Capsules 2 capsules once a day Unknown Vitamin C 1000mg Tablets 3 tablets once a day Unknown Acai Craig 500mg Capsules 1 capsule once a day Unknown L-Lysine 500mg Capsules 1 capsule once a day Unknown Turmeric Curcumin 500mg Capsules 1 capsule once a day Unknown Vitamin D-3 5000Unit Tablets 1 by mouth every day Unknown Beta Carotene 71581Xlrd Capsules 1 capsule once a day Unknown L-Glutamine 500mg Capsules 1 capsule once a day Unknown Preservision/Lutein Capsules 1 capsule once a day Unknown Medications Administered in [...] Information Available Procedures Date Code Description Status 02/26/2021 [id number] Multiple Injections-Admin. Compl eted 02/20/2021 92688 Multiple Injections-Admin. Compl eted 2021 32267 Multiple Injections-Admin. Compl eted 02/06/2021 60476 Multiple Injections-Admin. Compl eted 01/23/2021 86121 Multiple Injections-Admin. Compl eted 01/09/2021 60206 Multiple Injections-Admin. Compl eted 01/09/2021 34433 Multiple Injections-Admin. Compl eted 12/26/2020 73051 Multiple Injections-Admin. Compl eted 12/12/2020 95578 Multiple Injections-Admin. Compl eted 11/28/2020 71273 Multiple Injections-Admin. Compl eted 11/28/2020 84976 Office Visit - Level 4 Completed 11/14/2020 44793 Multiple Injections-Admin. Compl eted 11/14/2020 34766 Multiple Injections-Admin. Compl eted 10/31/2020 67383 Multiple Injections-Admin. Compl eted 10/17/2020 22288 Multiple Injections-Admin. Compl eted 10/03/2020 72959 Multiple Injections-Admin. Compl eted 10/03/2020 77482 Multiple Injections-Admin. Compl eted 09/19/2020 57465 Multiple Injections-Admin. Compl eted 09/19/2020 70552 Multiple Injections-Admin. Compl eted 09/05/2020 50813 Multiple Injections-Admin. Compl eted 09/05/2020 63607 Multiple Injections-Admin. Compl eted Medical Devices Description No Information Available Encounters Description No Information Available Assessments Date Code Description Provider 02/26/2021 J30.1 Allergic rhinitis due to pollen Allergy Injections 02/26/2021 J30.1 Allergic rhinitis due to pollen [facility] 02/26/2021 J30.81 Allergic rhinitis due to animal (cat) (dog) hair and dander Allergy Injections 02/26/2021 J30.81 Allergic rhinitis due to animal (cat) (dog) hair and dander [facility] 02/26/2021 J30.89 Other allergic rhinitis Allergy Injections 02/26/2021 J30.89 Other allergic rhinitis All[facility]jections [facility] 02/20/2021 J30.1 Allergic rhinitis due to pollen Allergy Injections 02/20/2021 J30.1 Allergic rhinitis due to pollen [facility] 02/20/2021 J30.81 Allergic rhinitis due to animal (cat) (dog) hair and dander Allergy Injections 02/20/2021 J30.81 Allergic rhinitis due to animal (cat) (dog) hair and dander [facility] 02/20/2021 J30.89 Other allergic rhinitis Allergy Injections 02/20/2021 J30.89 Other allergic rhinitis Allergy Injections [facility] 2021 J30.1 Allergic rhinitis due to pollen Allergy Injections 2021 J30.1 Allergic rhinitis due to pollen [facility] 2021 J30.81 Allergic rhinitis due to animal (cat) (dog) hair and dander Allergy Injections 2021 J30.81 Allergic rhinitis due to animal (cat) (dog) hair and dander Allergy Injections [facility] 2021 J30.89 Other allergic rhinitis Allergy Injections 2021 J30.89 Other allergic rhinitis Allergy Injections [facility] 02/06/2021 J30.1 Allergic rhinitis due to pollen Allergy Injections 02/06/2021 J30.1 Allergic rhinitis due to pollen [facility] 02/06/2021 J30.81 Allergic rhinitis due to animal (cat) (dog) hair and dander Allergy Injections 02/06/2021 J30.81 Allergic rhinitis due to animal (cat) (dog) hair and dander All[facility] 02/06/2021 J30.89 Other allergic rhinitis Allergy Injections 02/06/2021 J30.89 Other allergic rhinitis Allergy Injections [facility] 01/23/2021 J30.1 Allergic rhinitis due to pollen Allergy Injections 01/23/2021 J30.1 Allergic rhinitis due to pollen [facility] 01/23/2021 J30.81 Allergic rhinitis due to animal (cat) (dog) hair and dander Allergy Injections 01/23/2021 J30.81 Allergic rhinitis due to animal (cat) (dog) hair and dander All[facility] Injections [facility] 01/23/2021 J30.89 Other allergic rhinitis Allergy Injections 01/23/2021 J30.89 Other allergic rhinitis Allergy [facility] 01/09/2021 J30.1 Allergic rhinitis due to pollen Allergy Injections 01/09/2021 J30.1 Allergic rhinitis due to pollen [facility] 01/09/2021 J30.81 Allergic rhinitis due to animal (cat) (dog) hair and dander Allergy Injections 01/09/2021 J30.81 Allergic rhinitis due to animal (cat) (dog) hair and dander Allergy Injections [facility] 01/09/2021 J30.89 Other allergic rhinitis Allergy Injections 01/09/2021 J30.89 Other allergic rhinitis Allergy Injections [facility] 12/26/2020 J30.1 Allergic rhinitis due to pollen Allergy Injections 12/26/2020 J30.1 Allergic rhinitis due to pollen All[facility] In[facility] 12/26/2020 J30.81 Allergic rhinitis due to animal (cat) (dog) hair and dander Allergy Injections 12/26/2020 J30.81 Allergic rhinitis due to animal (cat) (dog) hair and dander Allergy Injections [facility] 12/26/2020 J30.89 Other allergic rhinitis Allergy Injections 12/26/2020 J30.89 Other allergic rhinitis Allergy Injections [facility] 12/12/2020 J30.1 Allergic rhinitis due to pollen Allergy Injections 12/12/2020 J30.1 Allergic rhinitis due to pollen Allergy Injections [facility] 12/12/2020 J30.81 Allergic rhinitis due to animal (cat) (dog) hair and dander Allergy Injections 12/12/2020 J30.81 Allergic rhinitis due to animal (cat) (dog) hair and dander Allergy Injections [facility] 12/12/2020 J30.89 Other allergic rhinitis Allergy Injections 12/12/2020 J30.89 Other allergic rhinitis All[facility] 12/12/2020 H10.45 Other chronic allergic conjuncti vitis Allergy Injections 12/12/2020 H10.45 Other chronic allergic conjuncti vitis Allergy Injections [facility] 11/28/2020 J30.1 Allergic rhinitis due to pollen Allergy Injections 11/28/2020 J30.1 Allergic rhinitis due to pollen [facility] 11/28/2020 J30.81 Allergic rhinitis due to animal (cat) (dog) hair and dander Allergy Injections 11/28/2020 J30.1 Allergic rhinitis due to pollen Negrito Isbell, DO 11/28/2020 J30.89 Other allergic rhinitis Allergy Injections 11/28/2020 J30.81 Allergic rhinitis due to animal (cat) (dog) hair and dander Allergy Injections [facility] 11/28/2020 H10.45 Other chronic allergic conjuncti vitis Allergy Injections 11/28/2020 J30.81 Allergic rhinitis due to animal (cat) (dog) hair and dander Negrito Isbell, DO 11/28/2020 J30.89 Other allergic rhinitis All[facility] 11/28/2020 J30.89 Other allergic rhinitis Negrito Isbell, DO 11/28/2020 H10.45 Other chronic allergic conjuncti vitis All[facility] In[facility] 11/28/2020 H10.45 Other chronic allergic conjuncti vitis Negrito Isbell, DO 11/28/2020 J32.9 Chronic sinusitis, unspecified C Negrito rivera, DO 11/14/2020 J30.1 Allergic rhinitis due to pollen Allergy Injections 11/14/2020 J30.1 Allergic rhinitis due to pollen [facility] 11/14/2020 J30.81 Allergic rhinitis due to animal (cat) (dog) hair and dander Allergy Injections 11/14/2020 J30.81 Allergic rhinitis due to animal (cat) (dog) hair and dander All[facility] In[facility] 11/14/2020 J30.89 Other allergic rhinitis Allergy Injections 11/14/2020 J30.89 Other allergic rhinitis Allergy Injections [facility] 10/31/2020 J30.1 Allergic rhinitis due to pollen Allergy Injections 10/31/2020 J30.1 Allergic rhinitis due to pollen Allergy In[facility] 10/31/2020 J30.81 Allergic rhinitis due to animal (cat) (dog) hair and dander Allergy Injections 10/31/2020 J30.81 Allergic rhinitis due to animal (cat) (dog) hair and dander Allergy In[facility] 10/31/2020 J30.89 Other allergic rhinitis Allergy Injections 10/31/2020 J30.89 Other allergic rhinitis Allergy Injections [facility] 10/31/2020 H10.45 Other chronic allergic conjuncti vitis Allergy Injections 10/31/2020 H10.45 Other chronic allergic conjuncti vitis Allergy Injections [facility] 10/17/2020 J30.1 Allergic rhinitis due to pollen Allergy Injections 10/17/2020 J30.1 Allergic rhinitis due to pollen Allergy Injections [facility] 10/17/2020 J30.89 Other allergic rhinitis Allergy Injections 10/17/2020 J30.89 Other allergic rhinitis Allergy Injections [facility] 10/17/2020 J30.81 Allergic rhinitis due to animal (cat) (dog) hair and dander Allergy Injections 10/17/2020 J30.81 Allergic rhinitis due to animal (cat) (dog) hair and dander Allergy Injections [facility] 10/03/2020 J30.1 Allergic rhinitis due to pollen Allergy Injections 10/03/2020 J30.1 Allergic rhinitis due to pollen All[facility] In[facility] 10/03/2020 J30.89 Other allergic rhinitis Allergy Injections 10/03/2020 J30.89 Other allergic rhinitis Allergy Injections [facility] 10/03/2020 J30.81 Allergic rhinitis due to animal (cat) (dog) hair and dander Allergy Injections 10/03/2020 J30.81 Allergic rhinitis due to animal (cat) (dog) hair and dander Allergy Injections [facility] 09/19/2020 J30.1 Allergic rhinitis due to pollen Allergy Injections 09/19/2020 J30.1 Allergic rhinitis due to pollen Allergy In[facility] 09/19/2020 J30.89 Other allergic rhinitis Allergy Injections 09/19/2020 J30.89 Other allergic rhinitis Allergy Injections [facility] 09/19/2020 J30.81 Allergic rhinitis due to animal (cat) (dog) hair and dander Allergy Injections 09/19/2020 J30.81 Allergic rhinitis due to animal (cat) (dog) hair and dander Allergy Injections [facility] 09/05/2020 J30.1 Allergic rhinitis due to pollen Allergy Injections 09/05/2020 J30.1 Allergic rhinitis due to pollen All[facility] In[facility] 09/05/2020 J30.89 Other allergic rhinitis Allergy Injections 09/05/2020 J30.89 Other allergic rhinitis Allergy In[facility] 09/05/2020 J30.81 Allergic rhinitis due to animal (cat) (dog) hair and dander Allergy Injections 09/05/2020 J30.81 Allergic rhinitis due to animal (cat) (dog) hair and dander [facility] Plan of Treatment Future Appointment(s):* 03/13/2021 9:00 am - [facility] * 03/06/2021 9:15 am - [facility] at [facility] * 04/24/2021 9:45 am - Negrito Isbell DO at [facility] 11/28/2020 - Negrito Isbell DO* J30.1 [...] Status Appt Date Negrito Isbell DO Created [address] [place] [address] [phone]
--- OUTSIDE RECORDS SUMMARY | 2021-02-27 07:59 | CCD | Continuity of Care Document ---
Author Author Allergy Injections [facility] Organization Unknown Address [address] [place] [address] Phone [phone] Care Team Providers Care Safety Risk Lead Name Role Phone Negrito Linton M.D. [facility] [phone] Problems Active Problems Provider Date Allergic rhinitis [...] J30.1 Unknown J30.89 J30.81 Azelastine HCL (Nasal) 137mcg/[place] Solution spray 2 sprays into each nostril [...] Unknown Glucosamine Chondroitin MSM Double Stren gth [phone] Tablets 2 tablet once a day Unknown Prevagen Extra Strength 20mg Capsu les 2 capsule once a day Unknown Propranolol HCL 80mg Tablets 1 tablet three times a day Unknown L-Arginine 500mg Capsules 1 capsule once a day Unknown Biotin Maximum 25348rcu Tablets Di spers 1 tablet once a day Unknown Acetyl L-Carnitine/Alpha Lipoic Acid 400-200mg Capsules 1 capsule once a day Unknown 000 GNP Potassium 99mg Tablets 3 tablet once a day Unknown Turkmen Ginseng 100mg Capsules 2 capsules once a day Unknown Vitamin C 1000mg Tablets 3 tablets once a day Unknown Acai Craig 500mg Capsules 1 capsule once a day Unknown L-Lysine 500mg Capsules 1 capsule once a day Unknown Turmeric Curcumin 500mg Capsules 1 capsule once a day Unknown Vitamin D-3 5000Unit Tablets 1 by mouth every day Unknown Beta Carotene 04869Nqqr Capsules 1 capsule once a day Unknown [...] Information Available Procedures Date Code Description Status 01/23/2021 85983 Multiple Injections-Admin. Compl eted 01/09/2021 32687 Multiple Injections-Admin. Compl eted 01/09/2021 05817 Multiple Injections-Admin. Compl eted 12/26/2020 31770 Multiple Injections-Admin. Compl eted 12/12/2020 00209 Multiple Injections-Admin. Compl eted 11/28/2020 86786 Office Visit - Level 4 Completed 11/28/2020 30418 Multiple Injections-Admin. Compl eted 11/14/2020 17150 Multiple Injections-Admin. Compl eted 11/14/2020 41117 Multiple Injections-Admin. Compl eted 10/31/2020 18519 Multiple Injections-Admin. Compl eted 10/17/2020 99119 Multiple Injections-Admin. Compl eted 10/03/2020 53932 Multiple Injections-Admin. Compl eted 10/03/2020 50377 Multiple Injections-Admin. Compl eted 09/19/2020 21415 Multiple Injections-Admin. Compl eted 09/19/2020 31687 Multiple Injections-Admin. Compl eted 09/05/2020 74330 Multiple Injections-Admin. Compl eted 09/05/2020 88585 Multiple Injections-Admin. Compl eted 08/22/2020 41923 Multiple Injections-Admin. Compl eted 08/08/2020 42380 Multiple Injections-Admin. Compl eted 07/25/2020 78970 Multiple Injections-Admin. Compl eted Medical Devices Description No Information Available Encounters Description No Information Available Assessments Date Code Description Provider 01/23/2021 J30.1 Allergic rhinitis due to pollen Allergy Injections 01/23/2021 J30.1 Allergic rhinitis due to pollen Allergy Injections [place] 01/23/2021 J30.81 Allergic rhinitis due to animal (cat) (dog) hair and dander Allergy Injections 01/23/2021 J30.81 Allergic rhinitis due to animal (cat) (dog) hair and dander Allergy Injections [place] 01/23/2021 J30.89 Other allergic rhinitis Allergy Injections 01/23/2021 J30.89 Other allergic rhinitis Allergy Injections [place] 01/09/2021 J30.1 Allergic rhinitis due to pollen Allergy Injections 01/09/2021 J30.1 Allergic rhinitis due to pollen Allergy Injections [place] 01/09/2021 J30.81 Allergic rhinitis due to animal (cat) (dog) hair and dander Allergy Injections 01/09/2021 J30.81 Allergic rhinitis due to animal (cat) (dog) hair and dander Allergy Injections [place] 01/09/2021 J30.89 Other allergic rhinitis Allergy Injections 01/09/2021 J30.89 Other allergic rhinitis Allergy Injections [place] 12/26/2020 J30.1 Allergic rhinitis due to pollen Allergy Injections 12/26/2020 J30.1 Allergic rhinitis due to pollen Allergy Injections [place] 12/26/2020 J30.81 Allergic rhinitis due to animal (cat) (dog) hair and dander Allergy Injections 12/26/2020 J30.81 Allergic rhinitis due to animal (cat) (dog) hair and dander Allergy Injections [place] 12/26/2020 J30.89 Other allergic rhinitis Allergy Injections 12/26/2020 J30.89 Other allergic rhinitis Allergy Injections [place] 12/12/2020 J30.1 Allergic rhinitis due to pollen Allergy Injections 12/12/2020 J30.1 Allergic rhinitis due to pollen Allergy Injections [place] 12/12/2020 J30.81 Allergic rhinitis due to animal (cat) (dog) hair and dander Allergy Injections 12/12/2020 J30.81 Allergic rhinitis due to animal (cat) (dog) hair and dander Allergy Injections [place] 12/12/2020 J30.89 Other allergic rhinitis Allergy Injections 12/12/2020 J30.89 Other allergic rhinitis Allergy Injections [place] 12/12/2020 H10.45 Other chronic allergic conjuncti vitis Allergy Injections 12/12/2020 H10.45 Other chronic allergic conjuncti vitis Allergy Injections [place] 11/28/2020 J30.1 Allergic rhinitis due to pollen Allergy Injections 11/28/2020 J30.1 Allergic rhinitis due to pollen Allergy Injections [place] 11/28/2020 J30.81 Allergic rhinitis due to animal (cat) (dog) hair and dander Allergy Injections 11/28/2020 J30.1 Allergic rhinitis due to pollen Negrito Isbell, DO 11/28/2020 J30.89 Other allergic rhinitis Allergy Injections 11/28/2020 J30.81 Allergic rhinitis due to animal (cat) (dog) hair and dander Allergy Injections [place] 11/28/2020 H10.45 Other chronic allergic conjuncti vitis Allergy Injections 11/28/2020 J30.81 Allergic rhinitis due to animal (cat) (dog) hair and dander Negrito Isbell, DO 11/28/2020 J30.89 Other allergic rhinitis Allergy Injections [place] 11/28/2020 J30.89 Other allergic rhinitis Negrito Isbell, DO 11/28/2020 H10.45 Other chronic allergic conjuncti vitis Allergy Injections [place] 11/28/2020 H10.45 Other chronic allergic conjuncti vitis Negrito Isbell, DO 11/28/2020 J32.9 Chronic sinusitis, unspecified C Negrito rivera, DO 11/14/2020 J30.1 Allergic rhinitis due to pollen Allergy Injections 11/14/2020 J30.1 Allergic rhinitis due to pollen Allergy Injections [place] 11/14/2020 J30.81 Allergic rhinitis due to animal (cat) (dog) hair and dander Allergy Injections 11/14/2020 J30.81 Allergic rhinitis due to animal (cat) (dog) hair and dander Allergy Injections [place] 11/14/2020 J30.89 Other allergic rhinitis Allergy Injections 11/14/2020 J30.89 Other allergic rhinitis Allergy Injections [place] 10/31/2020 J30.1 Allergic rhinitis due to pollen Allergy Injections 10/31/2020 J30.1 Allergic rhinitis due to pollen Allergy Injections [place] 10/31/2020 J30.81 Allergic rhinitis due to animal (cat) (dog) hair and dander Allergy Injections 10/31/2020 J30.81 Allergic rhinitis due to animal (cat) (dog) hair and dander Allergy Injections [place] 10/31/2020 J30.89 Other allergic rhinitis Allergy Injections 10/31/2020 J30.89 Other allergic rhinitis Allergy Injections [place] 10/31/2020 H10.45 Other chronic allergic conjuncti vitis Allergy Injections 10/31/2020 H10.45 Other chronic allergic conjuncti vitis Allergy Injections [place] 10/17/2020 J30.1 Allergic rhinitis due to pollen Allergy Injections 10/17/2020 J30.1 Allergic rhinitis due to pollen Allergy Injections [place] 10/17/2020 J30.89 Other allergic rhinitis Allergy Injections 10/17/2020 J30.89 Other allergic rhinitis Allergy Injections [place] 10/17/2020 J30.81 Allergic rhinitis due to animal (cat) (dog) hair and dander Allergy Injections 10/17/2020 J30.81 Allergic rhinitis due to animal (cat) (dog) hair and dander Allergy Injections [place] 10/03/2020 J30.1 Allergic rhinitis due to pollen Allergy Injections 10/03/2020 J30.1 Allergic rhinitis due to pollen Allergy Injections [place] 10/03/2020 J30.89 Other allergic rhinitis Allergy Injections 10/03/2020 J30.89 Other allergic rhinitis Allergy Injections [place] 10/03/2020 J30.81 Allergic rhinitis due to animal (cat) (dog) hair and dander Allergy Injections 10/03/2020 J30.81 Allergic rhinitis due to animal (cat) (dog) hair and dander Allergy Injections [place] 09/19/2020 J30.1 Allergic rhinitis due to pollen Allergy Injections 09/19/2020 J30.1 Allergic rhinitis due to pollen Allergy Injections [place] 09/19/2020 J30.89 Other allergic rhinitis Allergy Injections 09/19/2020 J30.89 Other allergic rhinitis Allergy Injections [place] 09/19/2020 J30.81 Allergic rhinitis due to animal (cat) (dog) hair and dander Allergy Injections 09/19/2020 J30.81 Allergic rhinitis due to animal (cat) (dog) hair and dander Allergy Injections [place] 09/05/2020 J30.1 Allergic rhinitis due to pollen Allergy Injections 09/05/2020 J30.1 Allergic rhinitis due to pollen Allergy Injections [place] 09/05/2020 J30.89 Other allergic rhinitis Allergy Injections 09/05/2020 J30.89 Other allergic rhinitis Allergy Injections [place] 09/05/2020 J30.81 Allergic rhinitis due to animal (cat) (dog) hair and dander Allergy Injections 09/05/2020 J30.81 Allergic rhinitis due to animal (cat) (dog) hair and dander Allergy Injections [place] 08/22/2020 J30.1 Allergic rhinitis due to pollen Allergy Injections 08/22/2020 J30.1 Allergic rhinitis due to pollen Allergy Injections [place] 08/22/2020 J30.89 Other allergic rhinitis Allergy Injections 08/22/2020 J30.89 Other allergic rhinitis Allergy Injections [place] 08/22/2020 J30.81 Allergic rhinitis due to animal (cat) (dog) hair and dander Allergy Injections 08/22/2020 J30.81 Allergic rhinitis due to animal (cat) (dog) hair and dander Allergy Injections [place] 08/08/2020 J30.1 Allergic rhinitis due to pollen Allergy Injections [place] 08/08/2020 J30.89 Other allergic rhinitis Allergy Injections [place] 08/08/2020 J30.81 Allergic rhinitis due to animal (cat) (dog) hair and dander Allergy Injections [place] 07/25/2020 J30.1 Allergic rhinitis due to pollen Allergy Injections 07/25/2020 J30.1 Allergic rhinitis due to pollen Allergy Injections [place] 07/25/2020 J30.89 Other allergic rhinitis Allergy Injections 07/25/2020 J30.89 Other allergic rhinitis Allergy Injections [place] 07/25/2020 J30.81 Allergic rhinitis due to animal (cat) (dog) hair and dander Allergy Injections 07/25/2020 J30.81 Allergic rhinitis due to animal (cat) (dog) hair and dander Allergy Injections [place] Plan of Treatment Future Appointment(s):* 03/06/2021 9:15 am - [facility] [place] [facility] * 02/20/2021 9:15 am - [facility] [place] [facility] * 02/06/2021 9:15 am - [facility] [place] [facility] * 04/24/2021 9:45 am - Negrito Isbell DO at [facility] 11/28/2020 - Negrito Isbell DO* J30.1 [...] Description No Information Available Referrals Refer to Dr Reason for Referral Status Appt Date Negrito Isbell DO Created [address] [place] [address], [address] [address] [phone]
--- OUTSIDE RECORDS SUMMARY | 2021-02-27 07:59 | CCD | Continuity of Care Document ---
Author Author Joo BRODY D.O. [place] [address] Phone [phone] Care Team Providers Care Dimension Warehouse Supervisor Name Role Phone Negrito Linton M.D. [facility] [phone] Negrito Linton M.D. [facility] [phone] [facility] Dept - [place]-Pulmonary AUTM AUTM Unavailable AUTM Unavailable Problems Active Problems Provider Date Solitary nodule of lung Brayden Brody D.O. Onset: 0 Pulmonary function studies abnormal Brayden Brody D.O. 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 Onset: 02/27/2019 Pulmonary embolism Brayden Brody D.O. Onset: 02/27/2019 Essential hypertension Tyler Velasquez JR, MD Onset: 12/31/19 21 Social History Type Date Description Comments Sex Unknown ETOH Use Denies alcohol use Tobacco Use Reviewed: 01/15/21 Denies Smoking Recreational Drug Use Denies Drug Use Smoking Status Reviewed: 01/15/21 Denies Smoking Allergies, Adverse Reactions, Alerts Description No Known Drug Allergies Medications Active Medications SIG Qnty Indications Ordering Provide r Date Acyclovir 400mg Tablets 1 tab by mouth three times a day as needed Unknown Allopurinol 300mg Tablets 1 tab by mouth every day Unknown Baclofen 10mg Tablets 1 tab by mouth three times a day as needed Unknown Gabapentin 800mg Tablets 1 cap by mouth three times a day Unknown Guaifenesin 200mg Tablets 1 tab by mouth every 6 hours as needed Unknown 00 Methadone HCL 5mg Tablets 1 tab by mouth a day Unknown Omeprazole 20mg Capsules DR 1 cap by mouth twice a day Unknown Propranolol HCL ER 80mg Caps ER 24 HR 1 tab by mouth three times a day Unknown Quetiapine Fumarate 200mg Tablets 1 tab by mouth at bedtime Unknown Terazosin HCL 10mg Capsules 1 cap by mouth at bedtime Unknown Trintellix 10mg Tablets 1 tab by mouth every day Unknown Duloxetine HCL 40mg Caps DR Part 1 tab by mouth every morning Unknown Eliquis 5mg Tablets 1 tab by mouth twice a day Unknown Cetirizine HCL 10mg Tablets 1 tab by mouth every day Unknown Tylenol Extra Strength 500mg Table ts 2 tabs by mouth three times a day 28tabs Unknown Sumatriptan Succinate 100mg Tablet s 1 tab by mouth twice a day as needed Unknown 0 Immunizations Description No Information Available Vital Signs Date Vital Result Comment 01/15/2021 2:55pm BP Systolic 120 mmHg BP Diastolic 70 mmHg Heart Rate 65 /min O2 % BldC Oximetry 97 % Height 70 inches 5'10" Weight 293.00 lb BMI (Body Mass Index) 42.0 kg/m2 [place] Body Weight 166 lb Weight 132.905 kg BSA (Body Surface Area) 2.46 m2 12/30/2020 8:30am BP Systolic 121 mmHg BP Diastolic 76 mmHg Heart Rate 59 /min Body Temperature 98.7 F Height 70 inches 5'10" Weight 292.38 lb BMI (Body Mass Index) 41.9 kg/m2 [place] Body Weight 166 lb Weight 132.621 kg BSA (Body Surface Area) 2.45 m2 Results Test Acquired Date Facility Test Result H/L Range Note FVL/[place]run[place] 01/15/2021 [facility] SEE IMAGE FVC-Pred 5.06 L FVC-Pre 3.25 L FVC-%Pred-Pre 64 L FVC-LLN 4.13 L Fev1-Pred 3.93 L Fev1-Pre 2.29 L Fev1-%Pred-Pre 58 L Fev1-LLN 3.14 L Fev6-Pred 4.88 L Fev6-Pre 3.25 L Fev6-%Pred-Pre 66 L Fev6-LLN 3.97 L Hdh3pcm-Efzj 78 % Vhk1itv-Zzw 70 % Eeb7uyt-%Pred-Pre 90 % Njj4zcz-SSZ 68 % Bzv0tbr-Plyn 96 % Mxi7luc-Bfw 100 % Ncy5kyv-%Pred-Pre 103 % FEFMax-Pred 9.83 L/E/sec FEFMax-Pre 7.22 L/E/sec FEFMax-%Pred-Pre 73 L/E/sec FEFMax-LLN 7.50 L/E/sec Sgy1429-Vvwh 3.47 L/E/sec Pfi6054-Nru 1.56 L/E/sec Zwu2554-%Pred-Pre 44 L/E/sec Bqu4087-WRI 1.87 L/E/sec ExpTime-Pre 5.91 sec Gqi2ump8-Gycq 80 % Dli8skp0-Alx 70 % Tsh6ehf9-%Pred-Pre 87 % Hae3xqi0-GMN 71 % Procedures Date Code Description Status 12/30/2020 87352 Office/Outpatient New Low MDM 30 -44 Minutes Completed Medical Devices Description No Information Available Encounters Type Date Location Provider Dx Diagnosis Office Visit 12/30/2020 8:30a [facility] Tyler rob JR, MD R19.7 Diarrhea, unspecified Z12.11 Encounter for screening for malignant neoplasm of colon Assessments Date Code Description Provider 01/15/2021 I26.99 Pulmonary embolism Leighton George 01/15/2021 R91.1 Solitary pulmonary nodule Brayden beltran D.O. 01/15/2021 E66.8 Other obesity Brayden Brody D.O. 12/30/2020 R19.7 Diarrhea, unspecified Tyler moran JR, MD 12/30/2020 Z12.11 Encounter for screening for daphney gnant neoplasm of colon Tyler Velasquez JR, MD Plan of Treatment Future Appointment(s):* 04/28/2021 1:30 pm - Brayden Brody D.O. at [facility] * 03/13/2021 10:15 am - MERRICK Alston at [facility] * 02/27/2021 8:00 am - Tyler Velasquez JR, MD at [facility] 01/15/2021 - Brayden Brody D.O.* I26.99 Pulmonary embolism * R91.1 Solitary pulmonary nodule * E66.8 Other obesity * * Follow up:* Follow up in April with Chest CT from [facility] Functional Status Description No Information Available Mental Status Mental Condition Comment Date Status Cognitive ability not impaired A ctive Referrals Refer to Reason for Referral Status Appt Date Brayden Brody D.O. Closed [facility] [address] [place], [place] [address] [phone] Brayden Brody D.O. PERSONAL HX OF PE Created [facility] [address] [place], [place] [id number] [phone] Tyler Velasquez M.D. COLONOSCOPY Scheduled 12/30/2020 [facility] [address] [facility] [address] [place], [place] [id number] [phone]
--- OUTSIDE RECORDS SUMMARY | 2021-02-27 07:59 | CCD | Continuity of Care Document ---
Author Author Joo BRODY D.O. Organization [place] [address] Phone [phone] Care Team Providers Care Family Consultant Name Role Phone Negrito Linton M.D. [facility] [phone] Negrito Linton M.D. AUT[facility] [phone] [facility] Dept - [place]-Pulmonary AUTM AUTM Unavailable AUTM Unavailable Problems Active Problems Provider Date Solitary nodule of lung Brayden Brody D.O. Onset: 0 Pulmonary function studies abnormal Brayden Brody D.O. Onse t: 02/27/2019 Prothrombin [id number] mutation Brayden Brody D.O. Onset: 02/14 Obesity [...] lb BMI (Body Mass Index) 42.0 kg/m2 [place] Body Weight 166 lb Weight 132.905 kg BSA (Body Surface Area) 2.46 m2 12/30/2020 8:30am BP Systolic 121 mmHg BP Diastolic 76 mmHg Heart Rate 59 /min Body Temperature 98.7 F Height 70 inches 5'10" Weight 292.38 lb BMI (Body Mass Index) 41.9 kg/m2 [place] Body Weight 166 lb Weight 132.621 kg BSA (Body Surface Area) 2.45 m2 Results Test Acquired Date Facility Test Result H/L Range Note FVL/[place] 01/15/2021 [facility] SEE IMAGE FVC-Pred 5.06 L FVC-Pre 3.25 L FVC-%Pred-Pre 64 L FVC-LLN 4.13 L Fev1-Pred 3.93 L Fev1-Pre 2.29 L Fev1-%Pred-Pre 58 L Fev1-LLN 3.14 L Fev6-Pred 4.88 L Fev6-Pre 3.25 L Fev6-%Pred-Pre 66 L Fev6-LLN 3.97 L Ylw1egs-Tupz 78 % Buo6jhh-Ufr 70 % Uaz6gnf-%Pred-Pre 90 % Qlx7hlf-PNH 68 % Jnm8eqp-Yshu 96 % Zbb8bwr-Out 100 % Ucl1twp-%Pred-Pre 103 % FEFMax-Pred 9.83 L/E/sec FEFMax-Pre 7.22 L/E/sec FEFMax-%Pred-Pre 73 L/E/sec FEFMax-LLN 7.50 L/E/sec Wrk6106-Uehn 3.47 L/E/sec Eis2043-Yys 1.56 L/E/sec Brm8284-%Pred-Pre 44 L/E/sec Arc9088-JQC 1.87 L/E/sec ExpTime-Pre 5.91 sec Gjk7xax0-Gbwv 80 % Ifb4ffn0-Jjm 70 % Pco0tcc8-%Pred-Pre 87 % Qhn7nxf1-KGK 71 % Procedures Date Code Description Status 12/30/2020 27344 Office/Outpatient New Low MDM 30 -44 Minutes Completed Medical Devices Description No Information Available Encounters Type Date Location Provider Dx Diagnosis Office Visit 12/30/2020 8:30a [facility] Tyler rob JR, MD R19.7 Diarrhea, unspecified [...] JR, MD Plan of Treatment Future Appointment(s):* 03/13/2021 10:15 am - MERRICK Alston at [facility] * 02/27/2021 8:00 am - Tyler Velasquez JR, MD at [facility] 01/15/2021 - Brayden Brody D.O.* I26.99 Pulmonary embolism * R91.1 Solitary pulmonary nodule * E66.8 Other obesity Functional Status Description No Information Available Mental Status Mental Condition Comment Date Status Cognitive ability not impaired A ctive Referrals Refer to Dr Reason for Referral Status Appt Date Brayden Brody D.O. Closed [facility] [address] [place], [place] [id number] [phone] Brayden Brody D.O. PERSONAL HX OF PE Created [facility] [address] [place], [place] [address] [phone] Tyler Velasquez M.D. COLONOSCOPY Scheduled 12/30/2020 [facility] [address] [facility] [address] [place] [address] [phone]
--- OUTSIDE RECORDS SUMMARY | 2021-02-27 07:59 | CCD | Continuity of Care Document ---
Author Author Joo VELASQUEZ MD Organization Unknown Address [address] [facility] [address] [place] [address] Phone [phone] Care Team Providers Care Weight Control Lecturer Name Role Phone Negrito Linton M.D. AUTM [phone] Negrito Linton M.D. AUTM [phone] [facility] Dept - [facility]-Pulmonary AUTM [phone] AUTM Unavailable AUTM Unavailable Problems Active Problems Provider Date Solitary nodule of lung Brayden Hyman D.O. Onset: 0 Pulmonary function studies abnormal Brayden Hyman D.O. 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 Onset: 02/27/2019 Pulmonary embolism Brayden Hyman D.O. Onset: 02/27/2019 Essential hypertension Tyler Velasquez JR, MD Onset: 12/31/19 21 Social History Type Date Description Comments Sex Unknown ETOH Use Denies alcohol use Tobacco Use Start: Unknown Denies Smoking Recreational Drug Use Denies Drug Use Smoking Status Reviewed: 11/13/19 Denies Smoking Allergies, Adverse Reactions, Alerts Description No Known Drug Allergies Medications Active Medications SIG Qnty Indications Ordering Provide r Date Quetiapine Fumarate 200mg Tablets 1 tab by mouth at bedtime Unknown Sumatriptan Succinate 100mg Tablet s 1 tab by mouth twice a day as needed Unknown 0 Tylenol Extra Strength 500mg Table ts 2 tabs by mouth three times a day 28tabs Unknown Metformin HCL 500mg Tablets 1 tab by mouth twice a day 6tabs Unknown Cetirizine HCL 10mg Tablets 1 tab by mouth every day Unknown Eliquis 5mg Tablets 1 tab by mouth twice a day Unknown Duloxetine HCL 40mg Caps DR Part 1 tab by mouth every morning Unknown Trintellix 10mg Tablets 1 tab by mouth every day Unknown Terazosin HCL 10mg Capsules 1 cap by mouth at bedtime Unknown Acyclovir 400mg Tablets 1 tab by mouth three times a day as needed Unknown Propranolol HCL ER 80mg Caps ER 24 HR 1 tab by mouth three times a day Unknown Omeprazole 20mg Capsules DR 1 cap by mouth twice a day Unknown Methadone HCL 5mg Tablets 1 tab by mouth a day Unknown Guaifenesin 200mg Tablets 1 tab by mouth every 6 hours as needed Unknown 00 Gabapentin 800mg Tablets 1 cap by mouth three times a day Unknown Baclofen 10mg Tablets 1 tab by mouth three times a day as needed Unknown Allopurinol 300mg Tablets 1 tab by mouth every day Unknown Immunizations Description No Information Available Vital Signs Date Vital Result Comment 12/30/2020 8:30am BP Systolic 121 mmHg BP Diastolic 76 mmHg Heart Rate 59 /min Body Temperature 98.7 F Height 70 inches 5'10" Weight 292.38 lb BMI (Body Mass Index) 41.9 kg/m2 Adamant Body Weight 166 lb Weight 132.621 kg BSA (Body Surface Area) 2.45 m2 11/13/2019 3:21pm BP Systolic 122 mmHg BP Diastolic 70 mmHg Heart Rate 72 /min O2 % BldC Oximetry 96 % Body Temperature 97.9 F Height 69 inches 5'9" Weight 307.00 lb BMI (Body Mass Index) 45.3 kg/m2 Adamant Body Weight 160 lb Weight 139.255 kg BSA (Body Surface Area) 2.48 m2 Results Description No Information Available Procedures Date Code Description Status 12/30/2020 92426 Office/Outpatient New Low MDM 30 -44 Minutes Completed Medical Devices Description No Information Available Encounters Type Date Location Provider Dx Diagnosis Office Visit 12/30/2020 8:30a [facility] Tyler rob JR, MD R19.7 Diarrhea, unspecified Z12.11 Encounter for screening for malignant neoplasm of colon Assessments Date Code Description Provider 12/30/2020 R19.7 Diarrhea, unspecified Tyler moran JR, MD 12/30/2020 Z12.11 Encounter for screening for daphney gnant neoplasm of colon Tyler Velasquez JR, MD Plan of Treatment Future Appointment(s):* 03/13/2021 10:15 am - MERRICK Alston at [facility] * 02/27/2021 8:30 am - Tyler Velasquez JR, MD at [facility] * 01/15/2021 3:00 pm - Brayden Hyman D.O. at [facility] Pulmonary/Thoracic 12/30/2020 - Tyler Velasquez JR, MD* R19.7 Diarrhea, unspecified* Comments:* We have discussed at length different medications to slow the bowels down ie. co ntribute to constipating the stools. Specifically we have discussed Pepto-Bismol and Imodium as first line treatment. And have discussed fiber supplementation as an option as well although have discussed the side effect of increased fiber is bloating and sometimes abdominal discomfort and may not be the most effective method is of stopping diarrhea. We've also discussed using probiotics and the benefits of probiotics in the typical dosing of probiotics. Some diarrhea is concerning and this is a little more frequent than it has been in the past do feel that this is a second reason why he should undergo his colonoscopy at this time we'll schedule this for him as well. * Z12.11 Encounter for screening for malignant neoplasm of colon* Comments:* The patient is here for recommendations concerning screening colonoscopy and fits the criteria for screening colonoscopy. And at this point the recommendation i s to proceed with a repeat colonoscopy risks as well as benefits have been discussed with him at length those including but not limited to bleeding infection damage to bowel including perforation and possibly anesthetic complications. Patient understands as well that small lesions/polyps can be missed with increased frequency and is much dependent on colonic prep. The patient agrees to proceed with colonoscopy as recommended. Functional Status Description No Information Available Mental Status Mental Condition Comment Date Status Cognitive ability not impaired A ctive Referrals Refer to Reason for Referral Status Appt Date Brayden Hyman D.O. Closed [facility] [address] [place], [place] [address] [phone] Brayden Hyman D.O. PERSONAL HX OF PE Created [facility] [address] [place], [place] [id number] [phone] Tyler Velasquez M.D. COLONOSCOPY Scheduled 12/30/2020 [facility] General Surgery [address] [id number] [phone]
--- OUTSIDE RECORDS SUMMARY | 2021-02-27 07:59 | CCD | Continuity of Care Document ---
Author Author Allergy Injections [place] Organization Unknown Address [address] [place] [address] Phone [phone] Care Team Providers Care Crop Farm Helper Name Role Phone Negrito Linton M.D. [facility] [phone] Problems Active Problems Provider Date Allergic rhinitis [...] J30.1 Unknown J30.89 J30.81 Azelastine HCL (Nasal) 137mcg/[place] Solution spray 2 sprays into each nostril [...] Unknown Glucosamine Chondroitin MSM Double Stren gth [id number] Tablets 2 tablet once a day Unknown Ginkgo 60mg Tablets 3 capsules once a day Unknown Melatonin 10mg Tablets Sub 2 tablets by mouth one hour before bed Unknown L-Arginine 500mg Capsules 1 capsule once a day Unknown Biotin Maximum [id number] Tablets Di spers 1 tablet once a day Unknown Acetyl L-Carnitine/Alpha Lipoic Acid 400-200mg Capsules 1 capsule once a day Unknown 000 GNP Potassium 99mg Tablets 3 tablet once a day Unknown Lithuanian Ginseng 100mg Capsules 2 capsules once a day Unknown Vitamin C 1000mg Tablets 3 tablets once a day Unknown Acai Craig 500mg Capsules 1 capsule once a day Unknown L-Lysine 500mg Capsules 1 capsule once a day Unknown Turmeric Curcumin 500mg Capsules 1 capsule once a day Unknown Vitamin D-3 5000Unit Tablets 1 by mouth every day Unknown Beta Carotene [id number] Capsules 1 capsule once a day Unknown [...] Available Procedures Date Code Description Status 02/26/2021 30752 Multiple Injections-Admin. Compl eted 02/20/2021 02383 Multiple Injections-Admin. Compl eted 2021 [id number] Multiple Injections-Admin. Compl eted 02/06/2021 03541 Multiple Injections-Admin. Compl eted 01/23/2021 28127 Multiple Injections-Admin. Compl eted 01/09/2021 56951 Multiple Injections-Admin. Compl eted 01/09/2021 97505 Multiple Injections-Admin. Compl eted 12/26/2020 25551 Multiple Injections-Admin. Compl eted 12/12/2020 35034 Multiple Injections-Admin. Compl eted 11/28/2020 27973 Multiple Injections-Admin. Compl eted 11/28/2020 51045 Office Visit - Level 4 Completed 11/14/2020 [id number] Multiple Injections-Admin. Compl eted 11/14/2020 [id number] Multiple Injections-Admin. Compl eted 10/31/2020 50175 Multiple Injections-Admin. Compl eted 10/17/2020 23069 Multiple Injections-Admin. Compl eted 10/03/2020 87868 Multiple Injections-Admin. Compl eted 10/03/2020 29577 Multiple Injections-Admin. Compl eted 09/19/2020 20971 Multiple Injections-Admin. Compl eted 09/19/2020 44478 Multiple Injections-Admin. Compl eted 09/05/2020 90628 Multiple Injections-Admin. Compl eted 09/05/2020 35551 Multiple Injections-Admin. Compl eted Medical Devices Description No Information Available Encounters Description No Information Available Assessments Date Code Description Provider 02/26/2021 J30.1 Allergic rhinitis due to pollen Allergy Injections 02/26/2021 J30.1 Allergic rhinitis due to pollen [facility] [place] 02/26/2021 J30.81 Allergic rhinitis due to animal (cat) (dog) hair and dander Allergy Injections 02/26/2021 J30.81 Allergic rhinitis due to animal (cat) (dog) hair and dander Allergy Injections [place] 02/26/2021 J30.89 Other allergic rhinitis Allergy Injections 02/26/2021 J30.89 Other allergic rhinitis Allergy Injections [place] 02/20/2021 J30.1 Allergic rhinitis due to pollen Allergy Injections 02/20/2021 J30.1 Allergic rhinitis due to pollen Allergy Injections [place] 02/20/2021 J30.81 Allergic rhinitis due to animal (cat) (dog) hair and dander Allergy Injections 02/20/2021 J30.81 Allergic rhinitis due to animal (cat) (dog) hair and dander Allergy Injections [place] 02/20/2021 J30.89 Other allergic rhinitis Allergy Injections 02/20/2021 J30.89 Other allergic rhinitis Allergy Injections [place] 2021 J30.1 Allergic rhinitis due to pollen Allergy Injections 2021 J30.1 Allergic rhinitis due to pollen Allergy Injections [place] 2021 J30.81 Allergic rhinitis due to animal (cat) (dog) hair and dander Allergy Injections 2021 J30.81 Allergic rhinitis due to animal (cat) (dog) hair and dander Allergy Injections [place] 2021 J30.89 Other allergic rhinitis Allergy Injections 2021 J30.89 Other allergic rhinitis Allergy Injections [place] 02/06/2021 J30.1 Allergic rhinitis due to pollen Allergy Injections 02/06/2021 J30.1 Allergic rhinitis due to pollen Allergy Injections [place] 02/06/2021 J30.81 Allergic rhinitis due to animal (cat) (dog) hair and dander Allergy Injections 02/06/2021 J30.81 Allergic rhinitis due to animal (cat) (dog) hair and dander Allergy Injections [place] 02/06/2021 J30.89 Other allergic rhinitis Allergy Injections 02/06/2021 J30.89 Other allergic rhinitis Allergy Injections [place] 01/23/2021 J30.1 Allergic rhinitis due to pollen Allergy Injections 01/23/2021 J30.1 Allergic rhinitis due to pollen Allergy Injections [place] 01/23/2021 J30.81 Allergic rhinitis due to animal (cat) (dog) hair and dander Allergy Injections 01/23/2021 J30.81 Allergic rhinitis due to animal (cat) (dog) hair and dander Allergy Injections [place] 01/23/2021 J30.89 Other allergic rhinitis Allergy Injections 01/23/2021 J30.89 Other allergic rhinitis Allergy Injections [place] 01/09/2021 J30.1 Allergic rhinitis due to pollen Allergy Injections 01/09/2021 J30.1 Allergic rhinitis due to pollen Allergy Injections [place] 01/09/2021 J30.81 Allergic rhinitis due to animal (cat) (dog) hair and dander Allergy Injections 01/09/2021 J30.81 Allergic rhinitis due to animal (cat) (dog) hair and dander Allergy Injections [place] 01/09/2021 J30.89 Other allergic rhinitis Allergy Injections 01/09/2021 J30.89 Other allergic rhinitis Allergy Injections [place] 12/26/2020 J30.1 Allergic rhinitis due to pollen Allergy Injections 12/26/2020 J30.1 Allergic rhinitis due to pollen Allergy Injections [place] 12/26/2020 J30.81 Allergic rhinitis due to animal (cat) (dog) hair and dander Allergy Injections 12/26/2020 J30.81 Allergic rhinitis due to animal (cat) (dog) hair and dander Allergy Injections [place] 12/26/2020 J30.89 Other allergic rhinitis Allergy Injections 12/26/2020 J30.89 Other allergic rhinitis Allergy Injections [place] 12/12/2020 J30.1 Allergic rhinitis due to pollen Allergy Injections 12/12/2020 J30.1 Allergic rhinitis due to pollen Allergy Injections [place] 12/12/2020 J30.81 Allergic rhinitis due to animal (cat) (dog) hair and dander Allergy Injections 12/12/2020 J30.81 Allergic rhinitis due to animal (cat) (dog) hair and dander Allergy Injections [place] 12/12/2020 J30.89 Other allergic rhinitis Allergy Injections 12/12/2020 J30.89 Other allergic rhinitis Allergy Injections [place] 12/12/2020 H10.45 Other chronic allergic conjuncti vitis Allergy Injections 12/12/2020 H10.45 Other chronic allergic conjuncti vitis Allergy Injections [place] 11/28/2020 J30.1 Allergic rhinitis due to pollen Allergy Injections 11/28/2020 J30.1 Allergic rhinitis due to pollen Allergy Injections [place] 11/28/2020 J30.81 Allergic rhinitis due to animal (cat) (dog) hair and dander Allergy Injections 11/28/2020 J30.1 Allergic rhinitis due to pollen Negrito Isbell, DO 11/28/2020 J30.89 Other allergic rhinitis Allergy Injections 11/28/2020 J30.81 Allergic rhinitis due to animal (cat) (dog) hair and dander Allergy Injections [place] 11/28/2020 H10.45 Other chronic allergic conjuncti vitis Allergy Injections 11/28/2020 J30.81 Allergic rhinitis due to animal (cat) (dog) hair and dander Negrito Isbell, DO 11/28/2020 J30.89 Other allergic rhinitis Allergy Injections [place] 11/28/2020 J30.89 Other allergic rhinitis Negrito Isbell, DO 11/28/2020 H10.45 Other chronic allergic conjuncti vitis Allergy Injections [place] 11/28/2020 H10.45 Other chronic allergic conjuncti vitis Negrito Isbell, DO 11/28/2020 J32.9 Chronic sinusitis, unspecified C Negrito rivera, DO 11/14/2020 J30.1 Allergic rhinitis due to pollen Allergy Injections 11/14/2020 J30.1 Allergic rhinitis due to pollen Allergy Injections [place] 11/14/2020 J30.81 Allergic rhinitis due to animal (cat) (dog) hair and dander Allergy Injections 11/14/2020 J30.81 Allergic rhinitis due to animal (cat) (dog) hair and dander Allergy Injections [place] 11/14/2020 J30.89 Other allergic rhinitis Allergy Injections 11/14/2020 J30.89 Other allergic rhinitis Allergy Injections [place] 10/31/2020 J30.1 Allergic rhinitis due to pollen Allergy Injections 10/31/2020 J30.1 Allergic rhinitis due to pollen Allergy Injections [place] 10/31/2020 J30.81 Allergic rhinitis due to animal (cat) (dog) hair and dander Allergy Injections 10/31/2020 J30.81 Allergic rhinitis due to animal (cat) (dog) hair and dander Allergy Injections [place] 10/31/2020 J30.89 Other allergic rhinitis Allergy Injections 10/31/2020 J30.89 Other allergic rhinitis Allergy Injections [place] 10/31/2020 H10.45 Other chronic allergic conjuncti vitis Allergy Injections 10/31/2020 H10.45 Other chronic allergic conjuncti vitis Allergy Injections [place] 10/17/2020 J30.1 Allergic rhinitis due to pollen Allergy Injections 10/17/2020 J30.1 Allergic rhinitis due to pollen Allergy Injections [place] 10/17/2020 J30.89 Other allergic rhinitis Allergy Injections 10/17/2020 J30.89 Other allergic rhinitis Allergy Injections [place] 10/17/2020 J30.81 Allergic rhinitis due to animal (cat) (dog) hair and dander Allergy Injections 10/17/2020 J30.81 Allergic rhinitis due to animal (cat) (dog) hair and dander Allergy Injections [place] 10/03/2020 J30.1 Allergic rhinitis due to pollen Allergy Injections 10/03/2020 J30.1 Allergic rhinitis due to pollen Allergy Injections [place] 10/03/2020 J30.89 Other allergic rhinitis Allergy Injections 10/03/2020 J30.89 Other allergic rhinitis Allergy Injections [place] 10/03/2020 J30.81 Allergic rhinitis due to animal (cat) (dog) hair and dander Allergy Injections 10/03/2020 J30.81 Allergic rhinitis due to animal (cat) (dog) hair and dander Allergy Injections [place] 09/19/2020 J30.1 Allergic rhinitis due to pollen Allergy Injections 09/19/2020 J30.1 Allergic rhinitis due to pollen Allergy Injections [place] 09/19/2020 J30.89 Other allergic rhinitis Allergy Injections 09/19/2020 J30.89 Other allergic rhinitis Allergy Injections [place] 09/19/2020 J30.81 Allergic rhinitis due to animal (cat) (dog) hair and dander Allergy Injections 09/19/2020 J30.81 Allergic rhinitis due to animal (cat) (dog) hair and dander Allergy Injections [place] 09/05/2020 J30.1 Allergic rhinitis due to pollen Allergy Injections 09/05/2020 J30.1 Allergic rhinitis due to pollen Allergy Injections [place] 09/05/2020 J30.89 Other allergic rhinitis Allergy Injections 09/05/2020 J30.89 Other allergic rhinitis Allergy Injections [place] 09/05/2020 J30.81 Allergic rhinitis due to animal (cat) (dog) hair and dander Allergy Injections 09/05/2020 J30.81 Allergic rhinitis due to animal (cat) (dog) hair and dander Allergy Injections [place] Plan of Treatment Future Appointment(s):* 03/13/2021 9:00 am - All[facility] Injections [place] at [facility] * 03/06/2021 9:15 am - Allergy Injections [place] at [facility] * 04/24/2021 9:45 am - Negrito Isbell DO at [facility] 11/28/2020 - Negrito Isbell DO* J30.1 Allergic [...] Status Appt Date Negrito Isbell DO Created [address] [place] [id number] [phone]
--- OUTSIDE RECORDS SUMMARY | 2021-02-27 07:59 | CCD ---
Continuity of Care Document (CCD) Created on: 02/26/2021 Joo Will External Reference #: [id number] Sex: Male Author Author Allergy Injections [facility]rellJoo tompkins Organization Unknown Address [address] [place] [address] Phone [phone] Care Team Providers Care Embroiderer Hand Name Role Phone Negrito Linton M.D. [facility] [phone] Problems Active Problems Provider Date Allergic rhinitis due to pollen Negrito Isbell DO Onset: 09/28/2018 Allergic rhinitis due to animals Negrito Isbell DO Onset : 09/28/2018 Chronic sinusitis Negrito Isbell DO Onset: 09/28/2018 Chronic allergic conjunctivitis Negriot Isbell DO Onset: 09/28/2018 Social History Type [...] J30.1 Unknown J30.89 J30.81 Azelastine HCL (Nasal) 137mcg/[place] Solution spray 2 sprays into each nostril [...] Unknown Glucosamine Chondroitin MSM Double Stren gth [phone] Tablets 2 tablet once a day Unknown Ginkgo 60mg Tablets 3 capsules once a day Unknown Melatonin 10mg Tablets Sub 2 tablets by mouth one hour before bed Unknown L-Arginine 500mg Capsules 1 capsule once a day Unknown Biotin Maximum 21755cpt Tablets Di spers 1 tablet once a day Unknown Acetyl L-Carnitine/Alpha Lipoic Acid 400-200mg Capsules 1 capsule once a day Unknown 000 GNP Potassium 99mg Tablets 3 tablet once a day Unknown Maori Ginseng 100mg Capsules 2 capsules once a day Unknown Vitamin C 1000mg Tablets 3 tablets once a day Unknown Acai Craig 500mg Capsules 1 capsule once a day Unknown L-Lysine 500mg Capsules 1 capsule once a day Unknown Turmeric Curcumin 500mg Capsules 1 capsule once a day Unknown Vitamin D-3 5000Unit Tablets 1 by mouth every day Unknown Beta Carotene 66376Siui Capsules 1 capsule once a day Unknown [...] Available Procedures Date Code Description Status 02/26/2021 72888 Multiple Injections-Admin. Compl eted 02/20/2021 16346 Multiple Injections-Admin. Compl eted 2021 38234 Multiple Injections-Admin. Compl eted 02/06/2021 63296 Multiple Injections-Admin. Compl eted 01/23/2021 88432 Multiple Injections-Admin. Compl eted 01/09/2021 23604 Multiple Injections-Admin. Compl eted 01/09/2021 80452 Multiple Injections-Admin. Compl eted 12/26/2020 05987 Multiple Injections-Admin. Compl eted 12/12/2020 77369 Multiple Injections-Admin. Compl eted 11/28/2020 70357 Multiple Injections-Admin. Compl eted 11/28/2020 06705 Office Visit - Level 4 Completed 11/14/2020 09486 Multiple Injections-Admin. Compl eted 11/14/2020 07149 Multiple Injections-Admin. Compl eted 10/31/2020 69116 Multiple Injections-Admin. Compl eted 10/17/2020 61781 Multiple Injections-Admin. Compl eted 10/03/2020 55746 Multiple Injections-Admin. Compl eted 10/03/2020 47302 Multiple Injections-Admin. Compl eted 09/19/2020 17127 Multiple Injections-Admin. Compl eted 09/19/2020 20561 Multiple Injections-Admin. Compl eted 09/05/2020 40044 Multiple Injections-Admin. Compl eted 09/05/2020 69417 Multiple Injections-Admin. Compl eted Medical Devices Description No Information Available Encounters Description No Information Available Assessments Date Code Description Provider 02/26/2021 J30.1 Allergic rhinitis due to pollen Allergy Injections 02/26/2021 J30.1 Allergic rhinitis due to pollen Allergy Injections Correll 02/26/2021 J30.81 Allergic rhinitis due to animal (cat) (dog) hair and dander Allergy Injections 02/26/2021 J30.81 Allergic rhinitis due to animal (cat) (dog) hair and dander Allergy Injections Correll 02/26/2021 J30.89 Other allergic rhinitis Allergy Injections 02/26/2021 J30.89 Other allergic rhinitis Allergy Injections Correll 02/20/2021 J30.1 Allergic rhinitis due to pollen Allergy Injections 02/20/2021 J30.1 Allergic rhinitis due to pollen Allergy Injections Correll 02/20/2021 J30.81 Allergic rhinitis due to animal (cat) (dog) hair and dander Allergy Injections 02/20/2021 J30.81 Allergic rhinitis due to animal (cat) (dog) hair and dander Allergy Injections Correll 02/20/2021 J30.89 Other allergic rhinitis Allergy Injections 02/20/2021 J30.89 Other allergic rhinitis Allergy Injections Correll 2021 J30.1 Allergic rhinitis due to pollen Allergy Injections 2021 J30.1 Allergic rhinitis due to pollen Allergy Injections Correll 2021 J30.81 Allergic rhinitis due to animal (cat) (dog) hair and dander Allergy Injections 2021 J30.81 Allergic rhinitis due to animal (cat) (dog) hair and dander Allergy Injections Correll 2021 J30.89 Other allergic rhinitis Allergy Injections 2021 J30.89 Other allergic rhinitis Allergy Injections Correll 02/06/2021 J30.1 Allergic rhinitis due to pollen Allergy Injections 02/06/2021 J30.1 Allergic rhinitis due to pollen Allergy Injections Correll 02/06/2021 J30.81 Allergic rhinitis due to animal (cat) (dog) hair and dander Allergy Injections 02/06/2021 J30.81 Allergic rhinitis due to animal (cat) (dog) hair and dander Allergy Injections Correll 02/06/2021 J30.89 Other allergic rhinitis Allergy Injections 02/06/2021 J30.89 Other allergic rhinitis Allergy Injections Correll 01/23/2021 J30.1 Allergic rhinitis due to pollen Allergy Injections 01/23/2021 J30.1 Allergic rhinitis due to pollen Allergy Injections Correll 01/23/2021 J30.81 Allergic rhinitis due to animal (cat) (dog) hair and dander Allergy Injections 01/23/2021 J30.81 Allergic rhinitis due to animal (cat) (dog) hair and dander Allergy Injections Correll 01/23/2021 J30.89 Other allergic rhinitis Allergy Injections 01/23/2021 J30.89 Other allergic rhinitis Allergy Injections Correll 01/09/2021 J30.1 Allergic rhinitis due to pollen Allergy Injections 01/09/2021 J30.1 Allergic rhinitis due to pollen Allergy Injections Correll 01/09/2021 J30.81 Allergic rhinitis due to animal (cat) (dog) hair and dander Allergy Injections 01/09/2021 J30.81 Allergic rhinitis due to animal (cat) (dog) hair and dander Allergy Injections Correll 01/09/2021 J30.89 Other allergic rhinitis Allergy Injections 01/09/2021 J30.89 Other allergic rhinitis Allergy Injections Correll 12/26/2020 J30.1 Allergic rhinitis due to pollen Allergy Injections 12/26/2020 J30.1 Allergic rhinitis due to pollen Allergy Injections Correll 12/26/2020 J30.81 Allergic rhinitis due to animal (cat) (dog) hair and dander Allergy Injections 12/26/2020 J30.81 Allergic rhinitis due to animal (cat) (dog) hair and dander Allergy Injections Correll 12/26/2020 J30.89 Other allergic rhinitis Allergy Injections 12/26/2020 J30.89 Other allergic rhinitis Allergy Injections Correll 12/12/2020 J30.1 Allergic rhinitis due to pollen Allergy Injections 12/12/2020 J30.1 Allergic rhinitis due to pollen Allergy Injections Correll 12/12/2020 J30.81 Allergic rhinitis due to animal (cat) (dog) hair and dander Allergy Injections 12/12/2020 J30.81 Allergic rhinitis due to animal (cat) (dog) hair and dander Allergy Injections Correll 12/12/2020 J30.89 Other allergic rhinitis Allergy Injections 12/12/2020 J30.89 Other allergic rhinitis Allergy Injections Correll 12/12/2020 H10.45 Other chronic allergic conjuncti vitis Allergy Injections 12/12/2020 H10.45 Other chronic allergic conjuncti vitis Allergy Injections Correll 11/28/2020 J30.1 Allergic rhinitis due to pollen Allergy Injections 11/28/2020 J30.1 Allergic rhinitis due to pollen Allergy Injections Correll 11/28/2020 J30.81 Allergic rhinitis due to animal (cat) (dog) hair and dander Allergy Injections 11/28/2020 J30.1 Allergic rhinitis due to pollen Negrito Isbell, DO 11/28/2020 J30.89 Other allergic rhinitis Allergy Injections 11/28/2020 J30.81 Allergic rhinitis due to animal (cat) (dog) hair and dander Allergy Injections Correll 11/28/2020 H10.45 Other chronic allergic conjuncti vitis Allergy Injections 11/28/2020 J30.81 Allergic rhinitis due to animal (cat) (dog) hair and dander Negrito Isbell, DO 11/28/2020 J30.89 Other allergic rhinitis Allergy Injections Correll 11/28/2020 J30.89 Other allergic rhinitis Negrito Isbell, DO 11/28/2020 H10.45 Other chronic allergic conjuncti vitis Allergy Injections Correll 11/28/2020 H10.45 Other chronic allergic conjuncti vitis Negrito Isbell, DO 11/28/2020 J32.9 Chronic sinusitis, unspecified C Negrito rivera, DO 11/14/2020 J30.1 Allergic rhinitis due to pollen Allergy Injections 11/14/2020 J30.1 Allergic rhinitis due to pollen Allergy Injections Correll 11/14/2020 J30.81 Allergic rhinitis due to animal (cat) (dog) hair and dander Allergy Injections 11/14/2020 J30.81 Allergic rhinitis due to animal (cat) (dog) hair and dander Allergy Injections Correll 11/14/2020 J30.89 Other allergic rhinitis Allergy Injections 11/14/2020 J30.89 Other allergic rhinitis Allergy Injections Correll 10/31/2020 J30.1 Allergic rhinitis due to pollen Allergy Injections 10/31/2020 J30.1 Allergic rhinitis due to pollen Allergy Injections Correll 10/31/2020 J30.81 Allergic rhinitis due to animal (cat) (dog) hair and dander Allergy Injections 10/31/2020 J30.81 Allergic rhinitis due to animal (cat) (dog) hair and dander Allergy Injections Correll 10/31/2020 J30.89 Other allergic rhinitis Allergy Injections 10/31/2020 J30.89 Other allergic rhinitis Allergy Injections Correll 10/31/2020 H10.45 Other chronic allergic conjuncti vitis Allergy Injections 10/31/2020 H10.45 Other chronic allergic conjuncti vitis Allergy Injections Correll 10/17/2020 J30.1 Allergic rhinitis due to pollen Allergy Injections 10/17/2020 J30.1 Allergic rhinitis due to pollen Allergy Injections Correll 10/17/2020 J30.89 Other allergic rhinitis Allergy Injections 10/17/2020 J30.89 Other allergic rhinitis Allergy Injections Correll 10/17/2020 J30.81 Allergic rhinitis due to animal (cat) (dog) hair and dander Allergy Injections 10/17/2020 J30.81 Allergic rhinitis due to animal (cat) (dog) hair and dander Allergy Injections Correll 10/03/2020 J30.1 Allergic rhinitis due to pollen Allergy Injections 10/03/2020 J30.1 Allergic rhinitis due to pollen Allergy Injections Correll 10/03/2020 J30.89 Other allergic rhinitis Allergy Injections 10/03/2020 J30.89 Other allergic rhinitis Allergy Injections Correll 10/03/2020 J30.81 Allergic rhinitis due to animal (cat) (dog) hair and dander Allergy Injections 10/03/2020 J30.81 Allergic rhinitis due to animal (cat) (dog) hair and dander Allergy Injections Correll 09/19/2020 J30.1 Allergic rhinitis due to pollen Allergy Injections 09/19/2020 J30.1 Allergic rhinitis due to pollen Allergy Injections Correll 09/19/2020 J30.89 Other allergic rhinitis Allergy Injections 09/19/2020 J30.89 Other allergic rhinitis Allergy Injections Correll 09/19/2020 J30.81 Allergic rhinitis due to animal (cat) (dog) hair and dander Allergy Injections 09/19/2020 J30.81 Allergic rhinitis due to animal (cat) (dog) hair and dander Allergy Injections Correll 09/05/2020 J30.1 Allergic rhinitis due to pollen Allergy Injections 09/05/2020 J30.1 Allergic rhinitis due to pollen Allergy Injections Correll 09/05/2020 J30.89 Other allergic rhinitis Allergy Injections 09/05/2020 J30.89 Other allergic rhinitis Allergy Injections Correll 09/05/2020 J30.81 Allergic rhinitis due to animal (cat) (dog) hair and dander Allergy Injections 09/05/2020 J30.81 Allergic rhinitis due to animal (cat) (dog) hair and dander Allergy Injections Correll Plan of Treatment Future Appointment(s):* 03/13/2021 9:00 am - Allergy Injections Correll at [facility] * 03/06/2021 9:15 am - Allergy Injections Correll at [facility] * 04/24/2021 9:45 am - Negrito Isbell DO at [facility] 11/28/2020 - Negrito Isbell DO* J30.1 [...] Status Appt Date Negrito Isbell DO Created [address] [place] [phone]
--- OUTSIDE RECORDS SUMMARY | 2021-02-27 07:59 | CCD | Continuity of Care Document ---
Author Author Allergy Injections Aquebogue[facility]oo tompkins Organization Unknown Address [address] [place] [address] Phone [phone] Care Team Providers Care Export Freight Manager Name Role Phone Negrito Linton M.D. [facility] [phone] Problems Active Problems Provider Date Allergic rhinitis [...] J30.1 Unknown J30.89 J30.81 Azelastine HCL (Nasal) 137mcg/[place] Solution spray 2 sprays into each nostril [...] Unknown Glucosamine Chondroitin MSM Double Stren gth [phone] Tablets 2 tablet once a day Unknown Prevagen Extra Strength 20mg Capsu les 2 capsule once a day Unknown Propranolol HCL 80mg Tablets 1 tablet three times a day Unknown L-Arginine 500mg Capsules 1 capsule once a day Unknown Biotin Maximum 85504iga Tablets Di spers 1 tablet once a day Unknown Acetyl L-Carnitine/Alpha Lipoic Acid 400-200mg Capsules 1 capsule once a day Unknown 000 GNP Potassium 99mg Tablets 3 tablet once a day Unknown [place] Ginseng 100mg Capsules 2 capsules once a day Unknown Vitamin C 1000mg Tablets 3 tablets once a day Unknown Acai Craig 500mg Capsules 1 capsule once a day Unknown L-Lysine 500mg Capsules 1 capsule once a day Unknown Turmeric Curcumin 500mg Capsules 1 capsule once a day Unknown Vitamin D-3 5000Unit Tablets 1 by mouth every day Unknown Beta Carotene 08757Euww Capsules 1 capsule once a day Unknown [...] Information Available Procedures Date Code Description Status 02/20/2021 24708 Multiple Injections-Admin. Compl eted 2021 64248 Multiple Injections-Admin. Compl eted 02/06/2021 66362 Multiple Injections-Admin. Compl eted 01/23/2021 96127 Multiple Injections-Admin. Compl eted 01/09/2021 06280 Multiple Injections-Admin. Compl eted 01/09/2021 00321 Multiple Injections-Admin. Compl eted 12/26/2020 10201 Multiple Injections-Admin. Compl eted 12/12/2020 40220 Multiple Injections-Admin. Compl eted 11/28/2020 32106 Office Visit - Level 4 Completed 11/28/2020 33679 Multiple Injections-Admin. Compl eted 11/14/2020 34687 Multiple Injections-Admin. Compl eted 11/14/2020 64788 Multiple Injections-Admin. Compl eted 10/31/2020 34196 Multiple Injections-Admin. Compl eted 10/17/2020 91303 Multiple Injections-Admin. Compl eted 10/03/2020 14911 Multiple Injections-Admin. Compl eted 10/03/2020 93734 Multiple Injections-Admin. Compl eted 09/19/2020 85592 Multiple Injections-Admin. Compl eted 09/19/2020 77593 Multiple Injections-Admin. Compl eted 09/05/2020 99944 Multiple Injections-Admin. Compl eted 09/05/2020 40804 Multiple Injections-Admin. Compl eted 08/22/2020 00768 Multiple Injections-Admin. Compl eted Medical Devices Description No Information Available Encounters Description No Information Available Assessments Date Code Description Provider 02/20/2021 J30.1 Allergic rhinitis due to pollen Allergy Injections 02/20/2021 J30.1 Allergic rhinitis due to pollen Allergy Injections [place] 02/20/2021 J30.81 Allergic rhinitis due to animal (cat) (dog) hair and dander Allergy Injections 02/20/2021 J30.81 Allergic rhinitis due to animal (cat) (dog) hair and dander Allergy Injections [place] 02/20/2021 J30.89 Other allergic rhinitis Allergy Injections 02/20/2021 J30.89 Other allergic rhinitis Allergy Injections [place] 2021 J30.1 Allergic rhinitis due to pollen Allergy Injections 2021 J30.1 Allergic rhinitis due to pollen Allergy Injections [place] 2021 J30.81 Allergic rhinitis due to animal (cat) (dog) hair and dander Allergy Injections 2021 J30.81 Allergic rhinitis due to animal (cat) (dog) hair and dander Allergy Injections [place] 2021 J30.89 Other allergic rhinitis Allergy Injections 2021 J30.89 Other allergic rhinitis Allergy Injections [place] 02/06/2021 J30.1 Allergic rhinitis due to pollen Allergy Injections 02/06/2021 J30.1 Allergic rhinitis due to pollen Allergy Injections [place] 02/06/2021 J30.81 Allergic rhinitis due to animal (cat) (dog) hair and dander Allergy Injections 02/06/2021 J30.81 Allergic rhinitis due to animal (cat) (dog) hair and dander Allergy Injections [place] 02/06/2021 J30.89 Other allergic rhinitis Allergy Injections 02/06/2021 J30.89 Other allergic rhinitis Allergy Injections [place] 01/23/2021 J30.1 Allergic rhinitis due to pollen Allergy Injections 01/23/2021 J30.1 Allergic rhinitis due to pollen Allergy Injections [place] 01/23/2021 J30.81 Allergic rhinitis due to animal (cat) (dog) hair and dander Allergy Injections 01/23/2021 J30.81 Allergic rhinitis due to animal (cat) (dog) hair and dander Allergy Injections [place] 01/23/2021 J30.89 Other allergic rhinitis Allergy Injections 01/23/2021 J30.89 Other allergic rhinitis Allergy Injections [place] 01/09/2021 J30.1 Allergic rhinitis due to pollen Allergy Injections 01/09/2021 J30.1 Allergic rhinitis due to pollen Allergy Injections [place] 01/09/2021 J30.81 Allergic rhinitis due to animal (cat) (dog) hair and dander Allergy Injections 01/09/2021 J30.81 Allergic rhinitis due to animal (cat) (dog) hair and dander Allergy Injections [place] 01/09/2021 J30.89 Other allergic rhinitis Allergy Injections 01/09/2021 J30.89 Other allergic rhinitis Allergy Injections [place] 12/26/2020 J30.1 Allergic rhinitis due to pollen Allergy Injections 12/26/2020 J30.1 Allergic rhinitis due to pollen Allergy Injections [place] 12/26/2020 J30.81 Allergic rhinitis due to animal (cat) (dog) hair and dander Allergy Injections 12/26/2020 J30.81 Allergic rhinitis due to animal (cat) (dog) hair and dander Allergy Injections [place] 12/26/2020 J30.89 Other allergic rhinitis Allergy Injections 12/26/2020 J30.89 Other allergic rhinitis Allergy Injections [place] 12/12/2020 J30.1 Allergic rhinitis due to pollen Allergy Injections 12/12/2020 J30.1 Allergic rhinitis due to pollen Allergy Injections [place] 12/12/2020 J30.81 Allergic rhinitis due to animal (cat) (dog) hair and dander Allergy Injections 12/12/2020 J30.81 Allergic rhinitis due to animal (cat) (dog) hair and dander Allergy Injections [place] 12/12/2020 J30.89 Other allergic rhinitis Allergy Injections 12/12/2020 J30.89 Other allergic rhinitis Allergy Injections [place] 12/12/2020 H10.45 Other chronic allergic conjuncti vitis Allergy Injections 12/12/2020 H10.45 Other chronic allergic conjuncti vitis Allergy Injections [place] 11/28/2020 J30.1 Allergic rhinitis due to pollen Allergy Injections 11/28/2020 J30.1 Allergic rhinitis due to pollen Allergy Injections [place] 11/28/2020 J30.81 Allergic rhinitis due to animal (cat) (dog) hair and dander Allergy Injections 11/28/2020 J30.1 Allergic rhinitis due to pollen Negrito Isbell, DO 11/28/2020 J30.89 Other allergic rhinitis Allergy Injections 11/28/2020 J30.81 Allergic rhinitis due to animal (cat) (dog) hair and dander Allergy Injections [place] 11/28/2020 H10.45 Other chronic allergic conjuncti vitis Allergy Injections 11/28/2020 J30.81 Allergic rhinitis due to animal (cat) (dog) hair and dander Negrito Isbell, DO 11/28/2020 J30.89 Other allergic rhinitis Allergy Injections [place] 11/28/2020 J30.89 Other allergic rhinitis Negrito Isbell, DO 11/28/2020 H10.45 Other chronic allergic conjuncti vitis Allergy Injections [place] 11/28/2020 H10.45 Other chronic allergic conjuncti vitis Negrito Isbell, DO 11/28/2020 J32.9 Chronic sinusitis, unspecified C Negrito rivera, DO 11/14/2020 J30.1 Allergic rhinitis due to pollen Allergy Injections 11/14/2020 J30.1 Allergic rhinitis due to pollen Allergy Injections [place] 11/14/2020 J30.81 Allergic rhinitis due to animal (cat) (dog) hair and dander Allergy Injections 11/14/2020 J30.81 Allergic rhinitis due to animal (cat) (dog) hair and dander Allergy Injections [place] 11/14/2020 J30.89 Other allergic rhinitis Allergy Injections 11/14/2020 J30.89 Other allergic rhinitis Allergy Injections [place] 10/31/2020 J30.1 Allergic rhinitis due to pollen Allergy Injections 10/31/2020 J30.1 Allergic rhinitis due to pollen Allergy Injections [place] 10/31/2020 J30.81 Allergic rhinitis due to animal (cat) (dog) hair and dander Allergy Injections 10/31/2020 J30.81 Allergic rhinitis due to animal (cat) (dog) hair and dander Allergy Injections [place] 10/31/2020 J30.89 Other allergic rhinitis Allergy Injections 10/31/2020 J30.89 Other allergic rhinitis Allergy Injections [place] 10/31/2020 H10.45 Other chronic allergic conjuncti vitis Allergy Injections 10/31/2020 H10.45 Other chronic allergic conjuncti vitis Allergy Injections [place] 10/17/2020 J30.1 Allergic rhinitis due to pollen Allergy Injections 10/17/2020 J30.1 Allergic rhinitis due to pollen Allergy Injections [place] 10/17/2020 J30.89 Other allergic rhinitis Allergy Injections 10/17/2020 J30.89 Other allergic rhinitis Allergy Injections [place] 10/17/2020 J30.81 Allergic rhinitis due to animal (cat) (dog) hair and dander Allergy Injections 10/17/2020 J30.81 Allergic rhinitis due to animal (cat) (dog) hair and dander Allergy Injections [place] 10/03/2020 J30.1 Allergic rhinitis due to pollen Allergy Injections 10/03/2020 J30.1 Allergic rhinitis due to pollen Allergy Injections [place] 10/03/2020 J30.89 Other allergic rhinitis Allergy Injections 10/03/2020 J30.89 Other allergic rhinitis Allergy Injections [place] 10/03/2020 J30.81 Allergic rhinitis due to animal (cat) (dog) hair and dander Allergy Injections 10/03/2020 J30.81 Allergic rhinitis due to animal (cat) (dog) hair and dander Allergy Injections [place] 09/19/2020 J30.1 Allergic rhinitis due to pollen Allergy Injections 09/19/2020 J30.1 Allergic rhinitis due to pollen Allergy Injections [place] 09/19/2020 J30.89 Other allergic rhinitis Allergy Injections 09/19/2020 J30.89 Other allergic rhinitis Allergy Injections [place] 09/19/2020 J30.81 Allergic rhinitis due to animal (cat) (dog) hair and dander Allergy Injections 09/19/2020 J30.81 Allergic rhinitis due to animal (cat) (dog) hair and dander Allergy Injections [place] 09/05/2020 J30.1 Allergic rhinitis due to pollen Allergy Injections 09/05/2020 J30.1 Allergic rhinitis due to pollen Allergy Injections [place] 09/05/2020 J30.89 Other allergic rhinitis Allergy Injections 09/05/2020 J30.89 Other allergic rhinitis Allergy Injections [place] 09/05/2020 J30.81 Allergic rhinitis due to animal (cat) (dog) hair and dander Allergy Injections 09/05/2020 J30.81 Allergic rhinitis due to animal (cat) (dog) hair and dander Allergy Injections [place] 08/22/2020 J30.1 Allergic rhinitis due to pollen Allergy Injections 08/22/2020 J30.1 Allergic rhinitis due to pollen Allergy Injections [place] 08/22/2020 J30.89 Other allergic rhinitis Allergy Injections 08/22/2020 J30.89 Other allergic rhinitis Allergy Injections [place] 08/22/2020 J30.81 Allergic rhinitis due to animal (cat) (dog) hair and dander Allergy Injections 08/22/2020 J30.81 Allergic rhinitis due to animal (cat) (dog) hair and dander Allergy Injections [place] Plan of Treatment Future Appointment(s):* 03/13/2021 9:00 am - Allergy Injections [facility] at [facility] * 02/27/2021 9:00 am - Allergy Injections [facility] at [facility] * 03/06/2021 9:15 am - Allergy Injections [facility] at [facility] * 04/24/2021 9:45 am - Negrito Isbell DO at [facility] 11/28/2020 - Negrito Isbell DO* J30.1 [...] Status Appt Date Negrito Isbell DO Created [address] [place] [address], [address] [place] [phone]
--- OUTSIDE RECORDS SUMMARY | 2021-02-27 07:59 | CCD | Continuity of Care Document ---
Author Author Allergy Injections [facility] tompkins Organization Unknown Address [address] [place] [address] Phone [phone] Care Team Providers Care Patent Prosecution Attorney Name Role Phone Negrito Linton M.D. [facility] [phone] Problems Active Problems Provider Date Allergic rhinitis due to pollen Negrito Isbell DO Onset: 09/28/2018 Allergic rhinitis due to animals Ngerito Isbell DO Onset : 09/28/2018 Chronic sinusitis [...] J30.1 Unknown J30.89 J30.81 Azelastine HCL (Nasal) 137mcg/[place] Solution spray 2 sprays into each nostril [...] Unknown Glucosamine Chondroitin MSM Double Stren gth 869-217-527mg Tablets 2 tablet once a day Unknown Ginkgo 60mg Tablets 3 capsules once a day Unknown Melatonin 10mg Tablets Sub 2 tablets by mouth one hour before bed Unknown L-Arginine 500mg Capsules 1 capsule once a day Unknown Biotin Maximum 25701cmf Tablets Di spers 1 tablet once a day Unknown Acetyl L-Carnitine/Alpha Lipoic Acid 400-200mg Capsules 1 capsule once a day Unknown 000 GNP Potassium 99mg Tablets 3 tablet once a day Unknown Slovak Ginseng 100mg Capsules 2 capsules once a day Unknown Vitamin C 1000mg Tablets 3 tablets once a day Unknown Acai Craig 500mg Capsules 1 capsule once a day Unknown L-Lysine 500mg Capsules 1 capsule once a day Unknown Turmeric Curcumin 500mg Capsules 1 capsule once a day Unknown Vitamin D-3 5000Unit Tablets 1 by mouth every day Unknown Beta Carotene 91018Htjn Capsules 1 capsule once a day Unknown [...] Available Procedures Date Code Description Status 02/26/2021 77189 Multiple Injections-Admin. Compl eted 02/20/2021 79633 Multiple Injections-Admin. Compl eted 2021 82378 Multiple Injections-Admin. Compl eted 02/06/2021 92545 Multiple Injections-Admin. Compl eted 01/23/2021 91429 Multiple Injections-Admin. Compl eted 01/09/2021 00771 Multiple Injections-Admin. Compl eted 01/09/2021 17772 Multiple Injections-Admin. Compl eted 12/26/2020 28464 Multiple Injections-Admin. Compl eted 12/12/2020 41807 Multiple Injections-Admin. Compl eted 11/28/2020 70935 Multiple Injections-Admin. Compl eted 11/28/2020 34870 Office Visit - Level 4 Completed 11/14/2020 50888 Multiple Injections-Admin. Compl eted 11/14/2020 51416 Multiple Injections-Admin. Compl eted 10/31/2020 94065 Multiple Injections-Admin. Compl eted 10/17/2020 54475 Multiple Injections-Admin. Compl eted 10/03/2020 49668 Multiple Injections-Admin. Compl eted 10/03/2020 [id number] Multiple Injections-Admin. Compl eted 09/19/2020 11784 Multiple Injections-Admin. Compl eted 09/19/2020 18524 Multiple Injections-Admin. Compl eted 09/05/2020 53635 Multiple Injections-Admin. Compl eted 09/05/2020 29560 Multiple Injections-Admin. Compl eted Medical Devices Description No Information Available Encounters Description No Information Available Assessments Date Code Description Provider 02/26/2021 J30.1 Allergic rhinitis due to pollen Allergy Injections 02/26/2021 J30.1 Allergic rhinitis due to pollen Allergy Injections Ohiopyle 02/26/2021 J30.81 Allergic rhinitis due to animal (cat) (dog) hair and dander Allergy Injections 02/26/2021 J30.81 Allergic rhinitis due to animal (cat) (dog) hair and dander Allergy Injections Ohiopyle 02/26/2021 J30.89 Other allergic rhinitis Allergy Injections 02/26/2021 J30.89 Other allergic rhinitis Allergy Injections Ohiopyle 02/20/2021 J30.1 Allergic rhinitis due to pollen Allergy Injections 02/20/2021 J30.1 Allergic rhinitis due to pollen Allergy Injections Ohiopyle 02/20/2021 J30.81 Allergic rhinitis due to animal (cat) (dog) hair and dander Allergy Injections 02/20/2021 J30.81 Allergic rhinitis due to animal (cat) (dog) hair and dander Allergy Injections Ohiopyle 02/20/2021 J30.89 Other allergic rhinitis Allergy Injections 02/20/2021 J30.89 Other allergic rhinitis Allergy Injections Ohiopyle 2021 J30.1 Allergic rhinitis due to pollen Allergy Injections 2021 J30.1 Allergic rhinitis due to pollen Allergy Injections Ohiopyle 2021 J30.81 Allergic rhinitis due to animal (cat) (dog) hair and dander Allergy Injections 2021 J30.81 Allergic rhinitis due to animal (cat) (dog) hair and dander Allergy Injections Ohiopyle 2021 J30.89 Other allergic rhinitis Allergy Injections 2021 J30.89 Other allergic rhinitis Allergy Injections Ohiopyle 02/06/2021 J30.1 Allergic rhinitis due to pollen Allergy Injections 02/06/2021 J30.1 Allergic rhinitis due to pollen Allergy Injections Ohiopyle 02/06/2021 J30.81 Allergic rhinitis due to animal (cat) (dog) hair and dander Allergy Injections 02/06/2021 J30.81 Allergic rhinitis due to animal (cat) (dog) hair and dander Allergy Injections Ohiopyle 02/06/2021 J30.89 Other allergic rhinitis Allergy Injections 02/06/2021 J30.89 Other allergic rhinitis Allergy Injections Ohiopyle 01/23/2021 J30.1 Allergic rhinitis due to pollen Allergy Injections 01/23/2021 J30.1 Allergic rhinitis due to pollen Allergy Injections Ohiopyle 01/23/2021 J30.81 Allergic rhinitis due to animal (cat) (dog) hair and dander Allergy Injections 01/23/2021 J30.81 Allergic rhinitis due to animal (cat) (dog) hair and dander Allergy Injections Ohiopyle 01/23/2021 J30.89 Other allergic rhinitis Allergy Injections 01/23/2021 J30.89 Other allergic rhinitis Allergy Injections Ohiopyle 01/09/2021 J30.1 Allergic rhinitis due to pollen Allergy Injections 01/09/2021 J30.1 Allergic rhinitis due to pollen Allergy Injections Ohiopyle 01/09/2021 J30.81 Allergic rhinitis due to animal (cat) (dog) hair and dander Allergy Injections 01/09/2021 J30.81 Allergic rhinitis due to animal (cat) (dog) hair and dander Allergy Injections Ohiopyle 01/09/2021 J30.89 Other allergic rhinitis Allergy Injections 01/09/2021 J30.89 Other allergic rhinitis Allergy Injections Ohiopyle 12/26/2020 J30.1 Allergic rhinitis due to pollen Allergy Injections 12/26/2020 J30.1 Allergic rhinitis due to pollen Allergy Injections Ohiopyle 12/26/2020 J30.81 Allergic rhinitis due to animal (cat) (dog) hair and dander Allergy Injections 12/26/2020 J30.81 Allergic rhinitis due to animal (cat) (dog) hair and dander Allergy Injections Ohiopyle 12/26/2020 J30.89 Other allergic rhinitis Allergy Injections 12/26/2020 J30.89 Other allergic rhinitis Allergy Injections Ohiopyle 12/12/2020 J30.1 Allergic rhinitis due to pollen Allergy Injections 12/12/2020 J30.1 Allergic rhinitis due to pollen Allergy Injections Ohiopyle 12/12/2020 J30.81 Allergic rhinitis due to animal (cat) (dog) hair and dander Allergy Injections 12/12/2020 J30.81 Allergic rhinitis due to animal (cat) (dog) hair and dander Allergy Injections Ohiopyle 12/12/2020 J30.89 Other allergic rhinitis Allergy Injections 12/12/2020 J30.89 Other allergic rhinitis Allergy Injections Ohiopyle 12/12/2020 H10.45 Other chronic allergic conjuncti vitis Allergy Injections 12/12/2020 H10.45 Other chronic allergic conjuncti vitis Allergy Injections Ohiopyle 11/28/2020 J30.1 Allergic rhinitis due to pollen Allergy Injections 11/28/2020 J30.1 Allergic rhinitis due to pollen Allergy Injections Ohiopyle 11/28/2020 J30.81 Allergic rhinitis due to animal (cat) (dog) hair and dander Allergy Injections 11/28/2020 J30.1 Allergic rhinitis due to pollen Negrito Isbell, DO 11/28/2020 J30.89 Other allergic rhinitis Allergy Injections 11/28/2020 J30.81 Allergic rhinitis due to animal (cat) (dog) hair and dander Allergy Injections Ohiopyle 11/28/2020 H10.45 Other chronic allergic conjuncti vitis Allergy Injections 11/28/2020 J30.81 Allergic rhinitis due to animal (cat) (dog) hair and dander Negrito Isbell, DO 11/28/2020 J30.89 Other allergic rhinitis Allergy Injections Ohiopyle 11/28/2020 J30.89 Other allergic rhinitis Negrito Isbell, DO 11/28/2020 H10.45 Other chronic allergic conjuncti vitis Allergy Injections Ohiopyle 11/28/2020 H10.45 Other chronic allergic conjuncti vitis Negrito Isbell, DO 11/28/2020 J32.9 Chronic sinusitis, unspecified C Negrito rivera, DO 11/14/2020 J30.1 Allergic rhinitis due to pollen Allergy Injections 11/14/2020 J30.1 Allergic rhinitis due to pollen Allergy Injections Ohiopyle 11/14/2020 J30.81 Allergic rhinitis due to animal (cat) (dog) hair and dander Allergy Injections 11/14/2020 J30.81 Allergic rhinitis due to animal (cat) (dog) hair and dander Allergy Injections Ohiopyle 11/14/2020 J30.89 Other allergic rhinitis Allergy Injections 11/14/2020 J30.89 Other allergic rhinitis Allergy Injections Ohiopyle 10/31/2020 J30.1 Allergic rhinitis due to pollen Allergy Injections 10/31/2020 J30.1 Allergic rhinitis due to pollen Allergy Injections Ohiopyle 10/31/2020 J30.81 Allergic rhinitis due to animal (cat) (dog) hair and dander Allergy Injections 10/31/2020 J30.81 Allergic rhinitis due to animal (cat) (dog) hair and dander Allergy Injections Ohiopyle 10/31/2020 J30.89 Other allergic rhinitis Allergy Injections 10/31/2020 J30.89 Other allergic rhinitis Allergy Injections Ohiopyle 10/31/2020 H10.45 Other chronic allergic conjuncti vitis Allergy Injections 10/31/2020 H10.45 Other chronic allergic conjuncti vitis Allergy Injections Ohiopyle 10/17/2020 J30.1 Allergic rhinitis due to pollen Allergy Injections 10/17/2020 J30.1 Allergic rhinitis due to pollen Allergy Injections Ohiopyle 10/17/2020 J30.89 Other allergic rhinitis Allergy Injections 10/17/2020 J30.89 Other allergic rhinitis Allergy Injections Ohiopyle 10/17/2020 J30.81 Allergic rhinitis due to animal (cat) (dog) hair and dander Allergy Injections 10/17/2020 J30.81 Allergic rhinitis due to animal (cat) (dog) hair and dander Allergy Injections Ohiopyle 10/03/2020 J30.1 Allergic rhinitis due to pollen Allergy Injections 10/03/2020 J30.1 Allergic rhinitis due to pollen Allergy Injections Ohiopyle 10/03/2020 J30.89 Other allergic rhinitis Allergy Injections 10/03/2020 J30.89 Other allergic rhinitis Allergy Injections Ohiopyle 10/03/2020 J30.81 Allergic rhinitis due to animal (cat) (dog) hair and dander Allergy Injections 10/03/2020 J30.81 Allergic rhinitis due to animal (cat) (dog) hair and dander Allergy Injections Ohiopyle 09/19/2020 J30.1 Allergic rhinitis due to pollen Allergy Injections 09/19/2020 J30.1 Allergic rhinitis due to pollen Allergy Injections Ohiopyle 09/19/2020 J30.89 Other allergic rhinitis Allergy Injections 09/19/2020 J30.89 Other allergic rhinitis Allergy Injections Ohiopyle 09/19/2020 J30.81 Allergic rhinitis due to animal (cat) (dog) hair and dander Allergy Injections 09/19/2020 J30.81 Allergic rhinitis due to animal (cat) (dog) hair and dander Allergy Injections Ohiopyle 09/05/2020 J30.1 Allergic rhinitis due to pollen Allergy Injections 09/05/2020 J30.1 Allergic rhinitis due to pollen Allergy Injections Ohiopyle 09/05/2020 J30.89 Other allergic rhinitis Allergy Injections 09/05/2020 J30.89 Other allergic rhinitis Allergy Injections Ohiopyle 09/05/2020 J30.81 Allergic rhinitis due to animal (cat) (dog) hair and dander Allergy Injections 09/05/2020 J30.81 Allergic rhinitis due to animal (cat) (dog) hair and dander Allergy Injections Ohiopyle Plan of Treatment Future Appointment(s):* 03/13/2021 9:00 am - Allergy Injections [facility]iopyle at [facility] * 03/06/2021 9:15 am - Allergy Injections Ohiopyle at [facility] * 04/24/2021 9:45 am - Negrito Isbell DO at [facility] 11/28/2020 - Negrito Isbell DO* J30.1 Allergic [...] Status Appt Date Negrito Isbell DO Created [address] [place] [id number] [phone]
--- OUTSIDE RECORDS SUMMARY | 2021-02-27 08:00 | CCD | Continuity of Care Document ---
Author Author Allergy Injections [facility] tompkins Organization Unknown Address [address] [place] [address] Phone [phone] Care Team Providers Care Communication And Outreach Manager Name Role Phone Negrito Linton M.D. [facility] [phone] Problems Active Problems Provider Date Allergic rhinitis [...] smoked Allergies, Adverse Reactions, Alerts Active Allergies Reaction Severity Comments Date Flunisolide 05/31/2018 Medications Active Medications SIG Qnty Indications [...] J30.1 Unknown J30.89 J30.81 Azelastine HCL (Nasal) 137mcg/[place] Solution spray 2 sprays into each nostril [...] Unknown Glucosamine Chondroitin MSM Double Stren gth [phone] Tablets 2 tablet once a day Unknown Prevagen Extra Strength 20mg Capsu les 2 capsule once a day Unknown Propranolol HCL 80mg Tablets 1 tablet three times a day Unknown L-Arginine 500mg Capsules 1 capsule once a day Unknown Biotin Maximum 02771mdd Tablets Di spers 1 tablet once a day Unknown Acetyl L-Carnitine/Alpha Lipoic Acid 400-200mg Capsules 1 capsule once a day Unknown 000 GNP Potassium 99mg Tablets 3 tablet once a day Unknown English Ginseng 100mg Capsules 2 capsules once a day Unknown Vitamin C 1000mg Tablets 3 tablets once a day Unknown Acai Craig 500mg Capsules 1 capsule once a day Unknown L-Lysine 500mg Capsules 1 capsule once a day Unknown Turmeric Curcumin 500mg Capsules 1 capsule once a day Unknown Vitamin D-3 5000Unit Tablets 1 by mouth every day Unknown Beta Carotene 16665Jmcs Capsules 1 capsule once a day Unknown [...] Information Available Procedures Date Code Description Status 12/12/2020 01782 Multiple Injections-Admin. Compl eted 11/28/2020 [id number] Office Visit - Level 4 Completed 11/28/2020 32997 Multiple Injections-Admin. Compl eted 11/14/2020 71011 Multiple Injections-Admin. Compl eted 11/14/2020 34709 Multiple Injections-Admin. Compl eted 10/31/2020 72842 Multiple Injections-Admin. Compl eted 10/17/2020 03292 Multiple Injections-Admin. Compl eted 10/03/2020 49105 Multiple Injections-Admin. Compl eted 10/03/2020 41796 Multiple Injections-Admin. Compl eted 09/19/2020 07382 Multiple Injections-Admin. Compl eted 09/19/2020 32404 Multiple Injections-Admin. Compl eted 09/05/2020 24673 Multiple Injections-Admin. Compl eted 09/05/2020 17547 Multiple Injections-Admin. Compl eted 08/22/2020 12591 Multiple Injections-Admin. Compl eted 08/08/2020 91165 Multiple Injections-Admin. Compl eted 07/25/2020 87989 Multiple Injections-Admin. Compl eted 07/18/2020 67031 Office Visit - Level 4 Completed 07/11/2020 52558 Multiple Injections-Admin. Compl eted 06/27/2020 94293 Multiple Injections-Admin. Compl eted Medical Devices Description No Information Available Encounters Description No Information Available Assessments Date Code Description Provider 12/12/2020 J30.1 Allergic rhinitis due to pollen Allergy Injections 12/12/2020 J30.1 Allergic rhinitis due to pollen Allergy Injections Butler 12/12/2020 J30.81 Allergic rhinitis due to animal (cat) (dog) hair and dander Allergy Injections 12/12/2020 J30.81 Allergic rhinitis due to animal (cat) (dog) hair and dander Allergy Injections Butler 12/12/2020 J30.89 Other allergic rhinitis Allergy Injections 12/12/2020 J30.89 Other allergic rhinitis Allergy Injections Butler 12/12/2020 H10.45 Other chronic allergic conjuncti vitis Allergy Injections 12/12/2020 H10.45 Other chronic allergic conjuncti vitis Allergy Injections Butler 11/28/2020 J30.1 Allergic rhinitis due to pollen Allergy Injections 11/28/2020 J30.1 Allergic rhinitis due to pollen Allergy Injections Butler 11/28/2020 J30.81 Allergic rhinitis due to animal (cat) (dog) hair and dander Allergy Injections 11/28/2020 J30.1 Allergic rhinitis due to pollen Negrito Isbell, DO 11/28/2020 J30.89 Other allergic rhinitis Allergy Injections 11/28/2020 J30.81 Allergic rhinitis due to animal (cat) (dog) hair and dander Allergy Injections Butler 11/28/2020 H10.45 Other chronic allergic conjuncti vitis Allergy Injections 11/28/2020 J30.81 Allergic rhinitis due to animal (cat) (dog) hair and dander Negrito Isbell, DO 11/28/2020 J30.89 Other allergic rhinitis Allergy Injections Butler 11/28/2020 J30.89 Other allergic rhinitis Negrito Isbell, DO 11/28/2020 H10.45 Other chronic allergic conjuncti vitis Allergy Injections Butler 11/28/2020 H10.45 Other chronic allergic conjuncti vitis Negrito Isbell, DO 11/28/2020 J32.9 Chronic sinusitis, unspecified C Negrito rivera, DO 11/14/2020 J30.1 Allergic rhinitis due to pollen Allergy Injections 11/14/2020 J30.1 Allergic rhinitis due to pollen Allergy Injections Butler 11/14/2020 J30.81 Allergic rhinitis due to animal (cat) (dog) hair and dander Allergy Injections 11/14/2020 J30.81 Allergic rhinitis due to animal (cat) (dog) hair and dander Allergy Injections Butler 11/14/2020 J30.89 Other allergic rhinitis Allergy Injections 11/14/2020 J30.89 Other allergic rhinitis Allergy Injections Butler 10/31/2020 J30.1 Allergic rhinitis due to pollen Allergy Injections 10/31/2020 J30.1 Allergic rhinitis due to pollen Allergy Injections Butler 10/31/2020 J30.81 Allergic rhinitis due to animal (cat) (dog) hair and dander Allergy Injections 10/31/2020 J30.81 Allergic rhinitis due to animal (cat) (dog) hair and dander Allergy Injections Butler 10/31/2020 J30.89 Other allergic rhinitis Allergy Injections 10/31/2020 J30.89 Other allergic rhinitis Allergy Injections Butler 10/31/2020 H10.45 Other chronic allergic conjuncti vitis Allergy Injections 10/31/2020 H10.45 Other chronic allergic conjuncti vitis Allergy Injections Butler 10/17/2020 J30.1 Allergic rhinitis due to pollen Allergy Injections 10/17/2020 J30.1 Allergic rhinitis due to pollen Allergy Injections Butler 10/17/2020 J30.89 Other allergic rhinitis Allergy Injections 10/17/2020 J30.89 Other allergic rhinitis Allergy Injections Butler 10/17/2020 J30.81 Allergic rhinitis due to animal (cat) (dog) hair and dander Allergy Injections 10/17/2020 J30.81 Allergic rhinitis due to animal (cat) (dog) hair and dander Allergy Injections Butler 10/03/2020 J30.1 Allergic rhinitis due to pollen Allergy Injections 10/03/2020 J30.1 Allergic rhinitis due to pollen Allergy Injections Butler 10/03/2020 J30.89 Other allergic rhinitis Allergy Injections 10/03/2020 J30.89 Other allergic rhinitis Allergy Injections Butler 10/03/2020 J30.81 Allergic rhinitis due to animal (cat) (dog) hair and dander Allergy Injections 10/03/2020 J30.81 Allergic rhinitis due to animal (cat) (dog) hair and dander Allergy Injections Butler 09/19/2020 J30.1 Allergic rhinitis due to pollen Allergy Injections 09/19/2020 J30.1 Allergic rhinitis due to pollen Allergy Injections Butler 09/19/2020 J30.89 Other allergic rhinitis Allergy Injections 09/19/2020 J30.89 Other allergic rhinitis Allergy Injections Butler 09/19/2020 J30.81 Allergic rhinitis due to animal (cat) (dog) hair and dander Allergy Injections 09/19/2020 J30.81 Allergic rhinitis due to animal (cat) (dog) hair and dander Allergy Injections Butler 09/05/2020 J30.1 Allergic rhinitis due to pollen Allergy Injections 09/05/2020 J30.1 Allergic rhinitis due to pollen Allergy Injections Butler 09/05/2020 J30.89 Other allergic rhinitis Allergy Injections 09/05/2020 J30.89 Other allergic rhinitis Allergy Injections Butler 09/05/2020 J30.81 Allergic rhinitis due to animal (cat) (dog) hair and dander Allergy Injections 09/05/2020 J30.81 Allergic rhinitis due to animal (cat) (dog) hair and dander Allergy Injections Butler 08/22/2020 J30.1 Allergic rhinitis due to pollen Allergy Injections 08/22/2020 J30.1 Allergic rhinitis due to pollen Allergy Injections Butler 08/22/2020 J30.89 Other allergic rhinitis Allergy Injections 08/22/2020 J30.89 Other allergic rhinitis Allergy Injections Butler 08/22/2020 J30.81 Allergic rhinitis due to animal (cat) (dog) hair and dander Allergy Injections 08/22/2020 J30.81 Allergic rhinitis due to animal (cat) (dog) hair and dander Allergy Injections Butler 08/08/2020 J30.1 Allergic rhinitis due to pollen Allergy Injections Butler 08/08/2020 J30.89 Other allergic rhinitis Allergy Injections Butler 08/08/2020 J30.81 Allergic rhinitis due to animal (cat) (dog) hair and dander Allergy Injections Butler 07/25/2020 J30.1 Allergic rhinitis due to pollen Allergy Injections 07/25/2020 J30.1 Allergic rhinitis due to pollen Allergy Injections Butler 07/25/2020 J30.89 Other allergic rhinitis Allergy Injections 07/25/2020 J30.89 Other allergic rhinitis Allergy Injections Butler 07/25/2020 J30.81 Allergic rhinitis due to animal (cat) (dog) hair and dander Allergy Injections 07/25/2020 J30.81 Allergic rhinitis due to animal (cat) (dog) hair and dander Allergy Injections Butler 07/18/2020 J30.1 Allergic rhinitis due to pollen Chasity Valentine PA-C 07/18/2020 J30.89 Other allergic rhinitis Chasity Valentine PA-C 07/18/2020 J30.81 Allergic rhinitis due to animal (cat) (dog) hair and dander Chasity Valentine PA-C 07/11/2020 J30.81 Allergic rhinitis due to animal (cat) (dog) hair and dander Allergy Injections 07/11/2020 J30.81 Allergic rhinitis due to animal (cat) (dog) hair and dander Allergy Injections Butler 07/11/2020 J30.1 Allergic rhinitis due to pollen Allergy Injections 07/11/2020 J30.1 Allergic rhinitis due to pollen Allergy Injections Butler 07/11/2020 J30.89 Other allergic rhinitis Allergy Injections 07/11/2020 J30.89 Other allergic rhinitis Allergy Injections Butler 06/27/2020 J30.81 Allergic rhinitis due to animal (cat) (dog) hair and dander Allergy Injections 06/27/2020 J30.81 Allergic rhinitis due to animal (cat) (dog) hair and dander Allergy Injections Butler 06/27/2020 J30.1 Allergic rhinitis due to pollen Allergy Injections 06/27/2020 J30.1 Allergic rhinitis due to pollen Allergy Injections Butler 06/27/2020 J30.89 Other allergic rhinitis Allergy Injections 06/27/2020 J30.89 Other allergic rhinitis Allergy Injections Butler Plan of Treatment Future Appointment(s):* 01/09/2021 9:15 am - Allergy Injections Butler at [facility] * 12/26/2020 9:15 am - Allergy Injections Butler at [facility] * 04/24/2021 9:45 am - Negrito Isbell DO at [facility] 11/28/2020 - Negrito Isbell DO* J30.1 Allergic [...] Mental Status Description No Information Available Referrals Description No Information Available
--- OUTSIDE RECORDS SUMMARY | 2021-02-27 08:00 | CCD | Continuity of Care Document ---
Author Author [facility] [place] Organization Unknown Address [address] [place] [id number] Phone [phone] Care Team Providers Care Baker Test Name Role Phone Negrito Linton M.D. [facility] [phone] Problems Active Problems Provider Date Allergic rhinitis [...] J30.1 Unknown J30.89 J30.81 Azelastine HCL (Nasal) 137mcg/Austwell Solution spray 2 sprays into each nostril [...] Unknown Glucosamine Chondroitin MSM Double Stren gth [phone] Tablets 2 tablet once a day Unknown Prevagen Extra Strength 20mg Capsu les 2 capsule once a day Unknown Propranolol HCL 80mg Tablets 1 tablet three times a day Unknown L-Arginine 500mg Capsules 1 capsule once a day Unknown Biotin Maximum 90548ifn Tablets Di spers 1 tablet once a day Unknown Acetyl L-Carnitine/Alpha Lipoic Acid 400-200mg Capsules 1 capsule once a day Unknown 000 GNP Potassium 99mg Tablets 3 tablet once a day Unknown Syriac Ginseng 100mg Capsules 2 capsules once a day Unknown Vitamin C 1000mg Tablets 3 tablets once a day Unknown Acai Craig 500mg Capsules 1 capsule once a day Unknown L-Lysine 500mg Capsules 1 capsule once a day Unknown Turmeric Curcumin 500mg Capsules 1 capsule once a day Unknown Vitamin D-3 5000Unit Tablets 1 by mouth every day Unknown Beta Carotene 45288Grup Capsules 1 capsule once a day Unknown [...] Information Available Procedures Date Code Description Status 12/26/2020 55684 Multiple Injections-Admin. Compl eted 12/12/2020 [id number] Multiple Injections-Admin. Compl eted 11/28/2020 77965 Office Visit - Level 4 Completed 11/28/2020 18810 Multiple Injections-Admin. Compl eted 11/14/2020 39653 Multiple Injections-Admin. Compl eted 11/14/2020 23964 Multiple Injections-Admin. Compl eted 10/31/2020 95720 Multiple Injections-Admin. Compl eted 10/17/2020 29764 Multiple Injections-Admin. Compl eted 10/03/2020 98393 Multiple Injections-Admin. Compl eted 10/03/2020 73121 Multiple Injections-Admin. Compl eted 09/19/2020 70212 Multiple Injections-Admin. Compl eted 09/19/2020 37567 Multiple Injections-Admin. Compl eted 09/05/2020 22315 Multiple Injections-Admin. Compl eted 09/05/2020 46955 Multiple Injections-Admin. Compl eted 08/22/2020 04487 Multiple Injections-Admin. Compl eted 08/08/2020 66229 Multiple Injections-Admin. Compl eted 07/25/2020 97249 Multiple Injections-Admin. Compl eted 07/18/2020 65504 Office Visit - Level 4 Completed 07/11/2020 62907 Multiple Injections-Admin. Compl eted Medical Devices Description No Information Available Encounters Description No Information Available Assessments Date Code Description Provider 12/26/2020 J30.1 Allergic rhinitis due to pollen [facility] 12/26/2020 J30.1 Allergic rhinitis due to pollen [facility] [place] 12/26/2020 J30.81 Allergic rhinitis due to animal (cat) (dog) hair and dander Allergy In[facility] 12/26/2020 J30.81 Allergic rhinitis due to animal (cat) (dog) hair and dander [facility] [place] 12/26/2020 J30.89 Other allergic rhinitis Allergy Injections 12/26/2020 J30.89 Other allergic rhinitis [facility] [place] 12/12/2020 J30.1 Allergic rhinitis due to pollen All[facility] In[facility] 12/12/2020 J30.1 Allergic rhinitis due to pollen [facility] [place] 12/12/2020 J30.81 Allergic rhinitis due to animal (cat) (dog) hair and dander [facility] In[facility] 12/12/2020 J30.81 Allergic rhinitis due to animal (cat) (dog) hair and dander [facility] [place] 12/12/2020 J30.89 Other allergic rhinitis [facility] 12/12/2020 J30.89 Other allergic rhinitis [facility] [place] 12/12/2020 H10.45 Other chronic allergic conjuncti vitis [facility] In[facility] 12/12/2020 H10.45 Other chronic allergic conjuncti vitis [facility] [place] 11/28/2020 J30.1 Allergic rhinitis due to pollen All[facility] In[facility] 11/28/2020 J30.1 Allergic rhinitis due to pollen [facility] [place] 11/28/2020 J30.81 Allergic rhinitis due to animal (cat) (dog) hair and dander Allergy In[facility] 11/28/2020 J30.1 Allergic rhinitis due to pollen Negrito Isbell, DO 11/28/2020 J30.89 Other allergic rhinitis [facility] 11/28/2020 J30.81 Allergic rhinitis due to animal (cat) (dog) hair and dander [facility] [place] 11/28/2020 H10.45 Other chronic allergic conjuncti vitis [facility] 11/28/2020 J30.81 Allergic rhinitis due to animal (cat) (dog) hair and dander Negrito Isbell, DO 11/28/2020 J30.89 Other allergic rhinitis [facility] [place] 11/28/2020 J30.89 Other allergic rhinitis Negrito Isbell, DO 11/28/2020 H10.45 Other chronic allergic conjuncti vitis [facility] [place] 11/28/2020 H10.45 Other chronic allergic conjuncti vitis Negrito Isbell, DO 11/28/2020 J32.9 Chronic sinusitis, unspecified C Negrito rivera, DO 11/14/2020 J30.1 Allergic rhinitis due to pollen [facility] 11/14/2020 J30.1 Allergic rhinitis due to pollen [facility] [place] 11/14/2020 J30.81 Allergic rhinitis due to animal (cat) (dog) hair and dander [facility] 11/14/2020 J30.81 Allergic rhinitis due to animal (cat) (dog) hair and dander [facility] [place] 11/14/2020 J30.89 Other allergic rhinitis [facility] In[facility] 11/14/2020 J30.89 Other allergic rhinitis [facility] [place] 10/31/2020 J30.1 Allergic rhinitis due to pollen All[facility] In[facility] 10/31/2020 J30.1 Allergic rhinitis due to pollen [facility] [place] 10/31/2020 J30.81 Allergic rhinitis due to animal (cat) (dog) hair and dander All[facility] In[facility] 10/31/2020 J30.81 Allergic rhinitis due to animal (cat) (dog) hair and dander [facility] [place] 10/31/2020 J30.89 Other allergic rhinitis [facility] 10/31/2020 J30.89 Other allergic rhinitis [facility] [place] 10/31/2020 H10.45 Other chronic allergic conjuncti vitis [facility] 10/31/2020 H10.45 Other chronic allergic conjuncti vitis [facility] [place] 10/17/2020 J30.1 Allergic rhinitis due to pollen [facility] 10/17/2020 J30.1 Allergic rhinitis due to pollen [facility] [place] 10/17/2020 J30.89 Other allergic rhinitis All[facility] In[facility] 10/17/2020 J30.89 Other allergic rhinitis [facility] [place] 10/17/2020 J30.81 Allergic rhinitis due to animal (cat) (dog) hair and dander All[facility] 10/17/2020 J30.81 Allergic rhinitis due to animal (cat) (dog) hair and dander [facility] [place] 10/03/2020 J30.1 Allergic rhinitis due to pollen [facility] In[facility] 10/03/2020 J30.1 Allergic rhinitis due to pollen [facility] [place] 10/03/2020 J30.89 Other allergic rhinitis All[facility] In[facility] 10/03/2020 J30.89 Other allergic rhinitis [facility] [place] 10/03/2020 J30.81 Allergic rhinitis due to animal (cat) (dog) hair and dander All[facility] In[facility] 10/03/2020 J30.81 Allergic rhinitis due to animal (cat) (dog) hair and dander [facility] [place] 09/19/2020 J30.1 Allergic rhinitis due to pollen All[facility] In[facility] 09/19/2020 J30.1 Allergic rhinitis due to pollen [facility] [place] 09/19/2020 J30.89 Other allergic rhinitis All[facility] In[facility] 09/19/2020 J30.89 Other allergic rhinitis [facility] [place] 09/19/2020 J30.81 Allergic rhinitis due to animal (cat) (dog) hair and dander All[facility] 09/19/2020 J30.81 Allergic rhinitis due to animal (cat) (dog) hair and dander [facility] [place] 09/05/2020 J30.1 Allergic rhinitis due to pollen [facility] 09/05/2020 J30.1 Allergic rhinitis due to pollen [facility] [place] 09/05/2020 J30.89 Other allergic rhinitis All[facility] In[facility] 09/05/2020 J30.89 Other allergic rhinitis [facility] [place] 09/05/2020 J30.81 Allergic rhinitis due to animal (cat) (dog) hair and dander All[facility] In[facility] 09/05/2020 J30.81 Allergic rhinitis due to animal (cat) (dog) hair and dander [facility] [place] 08/22/2020 J30.1 Allergic rhinitis due to pollen All[facility] In[facility] 08/22/2020 J30.1 Allergic rhinitis due to pollen [facility] [place] 08/22/2020 J30.89 Other allergic rhinitis Allergy Injections 08/22/2020 J30.89 Other allergic rhinitis [facility] [place] 08/22/2020 J30.81 Allergic rhinitis due to animal (cat) (dog) hair and dander Allergy Injections 08/22/2020 J30.81 Allergic rhinitis due to animal (cat) (dog) hair and dander [facility] [place] 08/08/2020 J30.1 Allergic rhinitis due to pollen [facility] [place] 08/08/2020 J30.89 Other allergic rhinitis [facility] [place] 08/08/2020 J30.81 Allergic rhinitis due to animal (cat) (dog) hair and dander [facility] [place] 07/25/2020 J30.1 Allergic rhinitis due to pollen All[facility] In[facility] 07/25/2020 J30.1 Allergic rhinitis due to pollen [facility] [place] 07/25/2020 J30.89 Other allergic rhinitis Allergy Injections 07/25/2020 J30.89 Other allergic rhinitis [facility] [place] 07/25/2020 J30.81 Allergic rhinitis due to animal (cat) (dog) hair and dander All[facility] Injections 07/25/2020 J30.81 Allergic rhinitis due to animal (cat) (dog) hair and dander [facility] [place] 07/18/2020 J30.1 Allergic rhinitis due to pollen Chasity Valentine PA-C 07/18/2020 J30.89 Other allergic rhinitis Chasity Valentine, PA-C 07/18/2020 J30.81 Allergic rhinitis due to animal (cat) (dog) hair and dander Chasity Valentine, PA-C 07/11/2020 J30.81 Allergic rhinitis due to animal (cat) (dog) hair and dander [facility] 07/11/2020 J30.81 Allergic rhinitis due to animal (cat) (dog) hair and dander [facility] [place] 07/11/2020 J30.1 Allergic rhinitis due to pollen All[facility] In[facility] 07/11/2020 J30.1 Allergic rhinitis due to pollen [facility] [place] 07/11/2020 J30.89 Other allergic rhinitis All[facility] Injections 07/11/2020 J30.89 Other allergic rhinitis [facility] [place] Plan of Treatment Future Appointment(s):* 02/06/2021 9:15 am - [facility] [place] [facility] [place] [facility] * 01/23/2021 9:15 am - [facility] [place] [facility] [place] [facility] * 01/09/2021 9:15 am - [facility] [place] [facility] [place] [facility] * 04/24/2021 9:45 am - Negrito Isbell DO at [facility] 11/28/2020 - Negrito Isbell, * J30.1 Allergic rhinitis due to pollen* Comments:* [...]
--- OUTSIDE RECORDS SUMMARY | 2021-02-27 08:00 | CCD ---
Author Author [facility] Organization [facility] Address Unknown Phone Unavailable Care Team Providers Care Pulper Name Role Phone Lida Velasquez JR, MD Unavailable Unavailable Lida Velasquez JR, MD Unavailable Unavailable Lida Velasquez JR, MD Unavailable Unavailable Lida Velasquez JR, MD Unavailable Unavailable Lida Velasquez JR, MD Unavailable Unavailable Lida Velasquez JR, MD Unavailable Unavailable Lida Velasquez JR, MD Unavailable Unavailable Lida Velasquez JR, MD Unavailable Unavailable Lida Velasquez JR, MD Unavailable Unavailable Lida Velasqeuz JR, MD Unavailable Unavailable Lida Velasquez JR, MD Unavailable Unavailable Lida Vealsquez JR, MD Unavailable Unavailable Lida Velasquez JR, MD Unavailable Unavailable Lida Velasquez JR, MD Unavailable Unavailable Lida Velasquez JR, MD Unavailable Unavailable Lida Velasquez JR, MD Unavailable Unavailable Lida Velasquez JR, MD Unavailable Unavailable Lida Velasquez JR, MD Unavailable Unavailable Lida Velasquez JR, MD Unavailable Unavailable Lida Velasquez JR, MD Unavailable Unavailable Lida Velasquez JR, MD Unavailable Unavailable Lida Velasquez JR, MD Unavailable Unavailable Lida Velasquez JR, MD Unavailable Unavailable Lida Velasquez JR, MD Unavailable Unavailable Lida Velasquez JR, MD Unavailable Unavailable Lida Velasquez JR, MD Unavailable Unavailable Lida Velasquez JR, MD Unavailable Unavailable Lida Velasquez JR, MD Unavailable Unavailable Lida Velasquez JR, MD Unavailable Unavailable Lida Velasquez JR, MD Unavailable Unavailable Lida Velasquez JR, MD Unavailable Unavailable Lida Velasquez JR, MD Unavailable Unavailable Lida Velasquez JR, MD Unavailable Unavailable Lida Velasquez JR, MD Unavailable Unavailable Ron JR, J Tyler MD Unavailable Unavailable Ron JR, J Tyler MD Unavailable Unavailable Ron JR, J Tyler MD Unavailable Unavailable Ron JR, J Tyler MD Unavailable Unavailable Ron JR, J Tyler MD Unavailable Unavailable Ron JR, J Tyler MD Unavailable Unavailable Ron JR, J Tyler MD Unavailable Unavailable Ron JR, J Tyler MD Unavailable Unavailable Ron JR, J Tyler MD Unavailable Unavailable Ron JR, J Tyler MD Unavailable Unavailable Ron JR, J Tyler MD Unavailable Unavailable Ron JR, J Tyler MD Unavailable Unavailable Ron JR, J Tyler MD Unavailable Unavailable Ron JR, J Tyler MD Unavailable Unavailable Ron JR, J Tyler MD Unavailable Unavailable Ron JR, J Tyler MD Unavailable Unavailable Ron JR, J Tyler MD Unavailable Unavailable Rno JR, J Tyler MD Unavailable Unavailable Ron JR, J Tyler MD Unavailable Unavailable Ron JR, J Tyler MD Unavailable Unavailable Re-disclosure Warning The records that you are about to access may contain information from federally-assisted alcohol or drug abuse programs. If such information is present, then the following federally mandated warning applies: This information has been disclosed to you from records protected by federal confidentiality rules (42 CFR part 2). The federal rules prohibit you from making any further disclosure of this information unless further disclosure is expressly permitted by the written consent of the person to whom it pertains or as otherwise permitted by 42 CFR part 2. A general authorization for the release of medical or other information is NOT sufficient for this purpose. The Federal rules restrict any use of the information to criminally investigate or prosecute any alcohol or drug abuse patient.The records that you are about to access may contain highly sensitive health information, the redisclosure of which is protected by Article 27-F of the [facility] Public Health law. If you continue you may have access to information: Regarding HIV / AIDS; Provided by facilities licensed or operated by the [facility] Office of Mental Health; or Provided by the [facility] Office for People With Developmental Disabilities. If such information is present, then the following [facility] mandated warning applies: This information has been disclosed to you from confidential records which are protected by state law. State law prohibits you from making any further disclosure of this information without the specific written consent of the person to whom it pertains, or as otherwise permitted by law. Any unauthorized further disclosure in violation of state law may result in a fine or long-term sentence or both. A general authorization for the release of medical or other information is NOT sufficient authorization for further disc losure. Family History Family Member Name Family Member Gender Family Member Status Date o f Status Description Data Source(s) Unknown Unknown Problem [facility] ([facility]) Encounters Encounter Providers Location Date Indications Data Source(s ) Outpatient Attender: Tyler Ford/Shahnaz/Marquise/Ciro koroma 12/30/2020 08:30:00 AM EDT [facility] ([facility] Medications Medication Brand Name Start Date Product Form Dose Route Admi nistrative Instructions Pharmacy Instructions Status Indications Reaction Description Data Source(s) Prednisone 10 MG Oral Tablet Prednisone 02/26/2021 12:00:00 AM EDT ORAL active [facility] ([facility]) Covid-19 vaccine, Unspecified 08/17/2020 12:00:00 AM EDT completed [facility] Medication administered onsite Covid-19 vaccine, Unspecified 07/18/2020 12:00:00 AM EST completed [facility]) Medication administered onsite 500 mg 07/05/2020 12:00:00 AM EST capsule 30 TAKE ONE CAPSULE BY MOUTH THREE TIMES A DAY TAKE ONE CAPSULE BY MOUTH THREE TIMES A DAY SOLD: 07/05/2020 [facility] Insurance Providers Payer name Policy type / Coverage type Policy ID Covered green party ID Covered green party's relationship to maloney Policy Maloney Plan Information [employer] [id number] Self [id number] [employer] [id number] Self [id number] SELF PAY ONLY [id number] SP [id number] [facility] [id number] S [id number] MEDICARE [id number] SP [id number] [employer] [id number] SP [id number] [facility] [facility] CHOICE [id number] SP [id number] 'S ADMINISTRATION [id number] SP [id number] [facility] [id number] C [id number] [facility] [id number] SP [id number] Problems, Conditions, and Diagnoses Code Display Name Description Problem Type Effective Dates Data Source(s) [id number] Essential hypertension Essential hypertension Problem 12/30/2020 12:00:00 AM EDT [facility] ([facility], ) Surgeries/Procedures Procedure Description Date Indications Data Source(s) Multiple Injections-Admin. 02/26/2021 12:00:00 AM EDT [facility] ([facility]) Multiple Injections-Admin. 02/20/2021 12:00:00 AM EDT [facility] ([facility]) Multiple Injections-Admin. 2021 12:00:00 AM EDT [facility] ([facility]) Multiple Injections-Admin. 02/06/2021 12:00:00 AM EDT [facility] ([facility]) Multiple Injections-Admin. 01/23/2021 12:00:00 AM EDT [facility] ([facility]) Multiple Injections-Admin. 01/09/2021 12:00:00 AM EDT [facility] ([facility]) Multiple Injections-Admin. 01/09/2021 12:00:00 AM EDT [facility] ([facility]) OFFICE OUTPATIENT NEW 30 MINUTES 12/30/2020 12:00:00 A M EDT [facility] ([facility], ) Multiple Injections-Admin. 12/26/2020 12:00:00 AM EDT [facility] ([facility]) Multiple Injections-Admin. 12/12/2020 12:00:00 AM EDT [facility] ([facility]) Multiple Injections-Admin. 11/28/2020 12:00:00 AM EDT [facility] ([facility]) OFFICE OUTPATIENT VISIT 25 MINUTES 11/28/2020 12:00:00 AM EDT [facility] ([facility]) Multiple Injections-Admin. 11/14/2020 12:00:00 AM EDT [facility] ([facility]) Multiple Injections-Admin. 11/14/2020 12:00:00 AM EDT [facility] ([facility]) Multiple Injections-Admin. 10/31/2020 12:00:00 AM EDT [facility] ([facility]) Multiple Injections-Admin. 10/17/2020 12:00:00 AM EDT [facility] ([facility]) Multiple Injections-Admin. 10/03/2020 12:00:00 AM EDT [facility]) Multiple Injections-Admin. 10/03/2020 12:00:00 AM EDT [facility] ([facility]) Multiple Injections-Admin. 09/19/2020 12:00:00 AM EDT [facility] ([facility]) Multiple Injections-Admin. 09/19/2020 12:00:00 AM EDT [facility] ([facility]) Multiple Injections-Admin. 09/05/2020 12:00:00 AM EDT [facility] ([facility]) Multiple Injections-Admin. 09/05/2020 12:00:00 AM EDT [facility] ([facility]) Multiple Injections-Admin. 08/22/2020 12:00:00 AM EDT [facility] ([facility]) Multiple Injections-Admin. 08/08/2020 12:00:00 AM EDT [facility] ([facility]) Multiple Injections-Admin. 07/25/2020 12:00:00 AM EST [facility] ([facility]) OFFICE OUTPATIENT VISIT 25 MINUTES 07/18/2020 12:00:00 AM EST [facility] ([facility]) Multiple Injections-Admin. 07/11/2020 12:00:00 AM EST [facility] ([facility]) Multiple Injections-Admin. 06/27/2020 12:00:00 AM EST [facility]) Multiple Injections-Admin. 06/13/2020 12:00:00 AM EST [facility] ([facility]) Allergy Mixed Antigens 05/22/2020 12:00:00 AM EST [facility]) Multiple Injections-Admin. 05/15/2020 12:00:00 AM EST [facility] ([facility]) Multiple Injections-Admin. 04/18/2020 12:00:00 AM EST [facility] ([facility]) Multiple Injections-Admin. 03/28/2020 12:00:00 AM EST [facility] ([facility]) Multiple Injections-Admin. 03/14/2020 12:00:00 AM EDT [facility] ([facility]) Allergy Mixed Antigens 02/29/2020 12:00:00 AM EDT [facility] ([facility]) Multiple Injections-Admin. 02/15/2020 12:00:00 AM EDT [facility] ([facility]) Multiple Injections-Admin. 01/31/2020 12:00:00 AM EDT [facility] ([facility]) Multiple Injections-Admin. 01/18/2020 12:00:00 AM EDT [facility] ([facility]) Multiple Injections-Admin. 01/04/2020 12:00:00 AM EDT [facility] ([facility]) Results ID Date Data Source [id number] 01/15/2021 02:55:00 PM EDT [facility] ([facility]) Name Value Range Interpretation Code Description Data Xiao rce(s) Supporting Document(s) PDFReport Laboratory test result [facility] ([facility], ) FVC-Pred 5.06 L [facility] ([facility]) FVC-%Pred-Pre 64 L [facility] ([facility]) FVC-Pre 3.25 L [facility] ([facility]) FVC-LLN 4.13 L [facility] ([facility]) Fev1-Pre 2.29 L [facility] ([facility]) Fev1-Pred 3.93 L [facility] ([facility]) Fev1-LLN 3.14 L [facility] ([facility]) Fev1-%Pred-Pre 58 L [facility] ([facility]) Fev6-Pred 4.88 L [facility] ([facility]) Fev6-Pre 3.25 L [facility] ([facility]) Fev6-%Pred-Pre 66 L [facility] ([facility]) Qfa2xaq-Njlp 78 % [facility] ([facility]) Fev6-LLN 3.97 L [facility] ([facility]) Wyz6xvp-Opp 70 % [facility] ([facility]) Bjm7niw-SDQ 68 % [facility] ([facility]) Thz6jkf-%Pred-Pre 90 % [facility] ([facility]) Czr0ezk-Wyn 100 % [facility] ([facility]) Ifb4ctl-%Pred-Pre 103 % [facility] ([facility]) Eqj3esw-Exqj 96 % [facility] ([facility]) FEFMax-Pred 9.83 L/E/sec [facility] ([facility]) FEFMax-Pre 7.22 L/E/sec [facility] ([facility]) FEFMax-LLN 7.50 L/E/sec [facility] ([facility]) FEFMax-%Pred-Pre 73 L/E/sec [facility] ([facility]) Soc8703-Rsqp 3.47 L/E/sec [facility] ([facility]) Lwr7186-Rbz 1.56 L/E/sec [facility] ([facility]) Pjp2911-%Pred-Pre 44 L/E/sec [facility] ([facility]) Qlk5tqk5-Cevp 80 % [facility] ([facility]) ExpTime-Pre 5.91 sec [facility] ([facility]) Fdy2938-XKS 1.87 L/E/sec [facility] ([facility]) Qjy5pdu4-%Pred-Pre 87 % [facility] ([facility]) Ifb3ytc3-Xua 70 % [facility] ([facility]) Ods7eht1-NCK 71 % [facility] ([facility]) ID Date Data Source [id number] 05/14/2020 12:00:00 AM EST [facility] Name Value Range Interpretation Code Description Data Xiao rce(s) Supporting Document(s) SARS-CoV-2 (COVID-19) RNA [Presence] in Respiratory specimen by JAMES with probe detection [facility] This lab was ordered by [facility] and reported by [employer]. Procedure Social History Code Duration Value Status Description Data Source(s ) 01/15/2021 12:00:00 AM EDT Denies Smoking completed Gertrude ansari Smoking [facility] ([facility]) Smoking 11/28/2020 12:00:00 AM EDT Patient has never smoked co mpleted Patient has never smoked [facility] ([facility]) Vital Signs ID Date Data Source UNK Name Value Range Interpretation Code Description Data Source(s) Body height 70 [in_i] 70 [in_i] [facility] ([facility]) 5'10" Systolic blood pressure 120 mm[Hg] 120 mm[Hg] [facility] ([facility]) Diastolic blood pressure 70 mm[Hg] 70 mm[Hg] [facility] Heart rate 65 /min 65 /min [facility] ([facility]) Oxygen saturation in Arterial blood by Pulse oximetry 97 % 97 % [facility] ([facility]) Body weight 293.00 [lb_av] 293.00 [lb_av] [facility] ([facility]) Body mass index (BMI) [Ratio] 42.0 kg/m2 42.0 k g/m2 [facility] ([facility]) [place] body weight 166 [lb_av] 166 [lb_av] [facility] ([facility]) Body weight 132.905 kg 132.905 kg [facility] ([facility]) Body surface area Derived from formula 2.46 m2 2.46 m2 [facility]) [place] body weight 166 [lb_av] 166 [lb_av] [facility] ([facility]) Body weight 132.621 kg 132.621 kg [facility] ([facility]) Body surface area Derived from formula 2.45 m2 2.45 m2 [facility] ([facility]) Systolic blood pressure 121 mm[Hg] 121 mm[Hg] [facility] Diastolic blood pressure 76 mm[Hg] 76 mm[Hg] [facility] Heart rate 59 /min 59 /min [facility] ([facility]) Body temperature 98.7 [degF] 98.7 [degF] [facility] ([facility]) Body height 70 [in_i] 70 [in_i] [facility] ([facility]) 5'10" Body weight 292.38 [lb_av] 292.38 [lb_av] [facility] ([facility]) Body mass index (BMI) [Ratio] 41.9 kg/m2 41.9 k g/m2 [facility] ([facility]) Heart rate 68 /min 68 /min [facility] ([facility] Respiratory rate 16 /min 16 /min [facility] ( [facility]) Systolic blood pressure 126 mm[Hg] 126 mm[Hg] M [facility] ([facility]) Diastolic blood pressure 72 mm[Hg] 72 mm[Hg] [facility] ([facility]) Body height 70 [in_i] 70 [in_i] [facility] 5'10" Body weight 287.00 [lb_av] 287.00 [lb_av] [facility] ([facility]) Oxygen saturation in Arterial blood by Pulse oximetry 98 % 98 % [facility] ([facility]) Body mass index (BMI) [Ratio] 41.2 kg/m2 41.2 k g/m2 [facility] ([facility]) Respiratory rate 15 /min 15 /min [facility] ( [facility]) Heart rate 86 /min 86 /min [facility] ([facility]) Systolic blood pressure 134 mm[Hg] 134 mm[Hg] M [facility] ([facility]) left arm Diastolic blood pressure 82 mm[Hg] 82 mm[Hg] [facility] ([facility]) left arm Body height 70 [in_i] 70 [in_i] [facility] 5'10" Body weight 296.50 [lb_av] 296.50 [lb_av] [facility] ([facility]) Body temperature 98.2 [degF] 98.2 [degF] [facility] ([facility]) Oxygen saturation in Arterial blood by Pulse oximetry 98 % 98 % [facility] ([facility]) Body mass index (BMI) [Ratio] 42.5 kg/m2 42.5 k g/m2 [facility] ([facility]) Body mass index (BMI) [Ratio] 43.9 kg/m2 43.9 k g/m2 [facility] ([facility]) Respiratory rate 16 /min 16 /min [facility] ( [facility]) Heart rate 74 /min 74 /min [facility] ([facility]) Systolic blood pressure 136 mm[Hg] 136 mm[Hg] M [facility] ([facility]) Diastolic blood pressure 78 mm[Hg] 78 mm[Hg] [facility] ([facility]) Body height 70 [in_i] 70 [in_i] [facility] 5'10" Body weight 306.12 [lb_av] 306.12 [lb_av] [facility] T ([facility]) Oxygen saturation in Arterial blood by Pulse oximetry 97 % 97 % [facility] ([facility]) Heart rate 67 /min 67 /min [facility] ([facility]) Respiratory rate 16 /min 16 /min [facility] ( [facility]) Diastolic blood pressure 70 mm[Hg] 70 mm[Hg] [facility] ([facility]) Body height 70 [in_i] 70 [in_i] [facility] 5'10" Systolic blood pressure 116 mm[Hg] 116 mm[Hg] M [facility] ([facility]) Body weight 305.12 [lb_av] 305.12 [lb_av] [facility] T ([facility]) Oxygen saturation in Arterial blood by Pulse oximetry 98 % 98 % [facility] ([facility]) Body mass index (BMI) [Ratio] 43.8 kg/m2 43.8 k g/m2 [facility] ([facility])
--- OUTSIDE RECORDS SUMMARY | 2021-02-27 08:00 | CCD | Continuity of Care Document ---
Author Author Joo VELASQUEZ MD Organization Unknown Address [address] [facility] [address] [place] [address] Phone [phone] Care Team Providers Care Lacquer Pin Press Operator Name Role Phone Negrito Linton M.D. AUTM [phone] Negrito Linton M.D. AUTM [phone] [facility] - [facility] AUTM [phone] AUTM Unavailable AUTM Unavailable Problems Active Problems Provider Date Solitary nodule of lung Brayden Hyman D.O. Onset: 0 Pulmonary function studies abnormal Brayden Hyman D.O. 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 Obesity [...] lb BMI (Body Mass Index) 41.9 kg/m2 [place] Body Weight 166 lb Weight 132.621 kg BSA (Body Surface Area) 2.45 m2 11/13/2019 3:21pm BP Systolic 122 mmHg BP Diastolic 70 mmHg Heart Rate 72 /min O2 % BldC Oximetry 96 % Body Temperature 97.9 F Height 69 inches 5'9" Weight 307.00 lb BMI (Body Mass Index) 45.3 kg/m2 [place] Body Weight 160 lb Weight 139.255 kg BSA (Body Surface Area) 2.48 m2 Results Description No Information Available Procedures Description No Information Available Medical Devices Description No Information Available Encounters Description No Information Available Assessments Description No Information Available Plan of Treatment Future Appointment(s):* 01/15/2021 3:00 pm - Brayden Hyman D.O. at [facility] Pulmonary/Thoracic 11/13/2019 - Brayden Hyman D.O.* I26.99 Pulmonary embolism * R94.2 Pulmonary function studies abnormal * R91.1 Solitary pulmonary nodule * * New Labs:* FVL/Bumpass, Ordered: 11/13/19 * Follow up:* Follow up in one year with karl Functional Status Description No Information Available Mental Status Mental Condition Comment Date Status Cognitive ability not impaired A ctive Referrals Refer to Dr Reason for Referral Status Appt Brayden Hyman D.O. Closed [facility]-Pulmonary [address] [place], [place] [address] [phone] Tyler Velasquez M.D. COLONOSCOPY Scheduled 12/30/2020 [facility] General Surgery [address] [facility] [address] [place], [place] [id number] [phone]
[2021-02-27] MEDS ORDERED: propofoL 200 MG/20 ML VIAL As Ordered ONE (09:28)
--- NOTE | 2021-02-27 09:43 | ROOR ---
Patient Name: Joo Will Procedure Date: 02/27/2021 9:24 AM Date of : 1970 Age: 51 Room: [facility] Gender: Male Note Status: Finalized Procedure: Colonoscopy Indications: Chronic diarrhea Providers: Tyler Velasquez Jr, MD Referring MD: Negrito Linton Requesting Provider: Medicines: Propofol per Anesthesia Complications: No immediate complications. Procedure: Pre-Anesthesia Assessment: - Prior to the procedure, a History and Physical was performed, and patient medications and allergies were reviewed. The patient is competent. The risks and benefits of the procedure and the sedation options and risks were discussed with the patient. All questions were answered and informed consent was obtained. Patient identification and proposed procedure were verified by the physician and the nurse in the pre-procedure area and in the procedure room. Mental Status Examination: alert and oriented. Airway Examination: normal oropharyngeal airway and neck mobility. Respiratory Examination: clear to auscultation. CV Examination: normal. ASA Grade Assessment: II - A patient with mild systemic disease. After reviewing the risks and benefits, the patient was deemed in satisfactory condition to undergo the procedure. The anesthesia plan was to use moderate sedation / analgesia (conscious sedation). Immediately prior to administration of medications, the patient was re-assessed for adequacy to receive sedatives. The heart rate, respiratory rate, oxygen saturations, blood pressure, adequacy of pulmonary ventilation, and response to care were monitored throughout the procedure. The physical status of the patient was re-assessed after the procedure. The Colonoscope was introduced through the anus and advanced to the cecum, identified by appendiceal orifice and ileocecal valve. The colonoscopy was performed without difficulty. The patient tolerated the procedure well. The quality of the bowel preparation was fair. Findings: The rectum, recto-sigmoid colon, sigmoid colon, descending colon, transverse colon, ascending colon, cecum, appendiceal orifice and ileocecal valve appeared normal. Impression: - Preparation of the colon was fair. - The rectum, recto-sigmoid colon, sigmoid colon, descending colon, transverse colon, ascending colon, cecum, appendiceal orifice and ileocecal valve are normal. - No specimens collected. Recommendation: - Discharge patient to home (ambulatory). - Repeat colonoscopy in 10 years for screening purposes. Procedure Code(s): --- Professional --- 30068, Colonoscopy, flexible; diagnostic, including collection of specimen(s) by brushing or washing, when performed (separate procedure) Diagnosis Code(s): --- Professional --- K52.9, Noninfective gastroenteritis and colitis, unspecified CPT copyright 2019 [employer]. All rights reserved. The codes documented in this report are preliminary and upon cash applications coordinator review may be revised to meet current compliance requirements. Tyler Velasquez MD Tyler Velasquez Jr, MD 02/27/2021 9:42:39 AM Electronically signed by Tyler Velasquez Jr, MD Number of Addenda: 0 Note Initiated On: 02/27/2021 9:24 AM Estimated Blood Loss: Estimated blood loss: none.
[2021-02-27 10:03] VITALS: BP 118/59
== END 2021-02-27 10:44 | disposition home or self-care (01) ==
LOC: M OPP 07:54
PROVIDERS: ATTEND Surgery
DX: K52.9 Noninfective gastroenteritis and colitis, unspecified (principal); G47.30 Sleep apnea, unspecified; I10 Essential (primary) hypertension; R12 Heartburn; Z79.899 Other long term (current) drug therapy; Z86.718 Personal history of other venous thrombosis and embolism

== ENCOUNTER 2023-10-03 17:42 | Emergency (ER) | payer OTHER ==
[~2023-10-03] VITALS: Ht 177.8 cm; Wt 123.7 kg
[~2023-10-03 17:42] MED LIST changes: -NS 1,000 ML IV ONE; +OMEP-173 PO; -OMEP-218 PO; +[UNRECOGNIZED DRUG - CODE] PO; -[UNRECOGNIZED DRUG - CODE] PO
[2023-10-03 18:24] LABS: BASO # 0.2 10^3/uL (0.0-0.2); BASO % 1.2 % (0.0-1.0); EOS % 6.8 % (0.0-3.0); HEMATOCRIT 44.3 % (42.0-52.0); HEMOGLOBIN 15.4 g/dl (13.5-17.5); LYMPH # 4.9 10^3/uL (1.5-5.0); LYMPH % 33.7 % (24.0-44.0); MEAN CORPUSCULAR HEMOGLOBIN 31.8 pg (27.0-33.0); MEAN CORPUSCULAR HGB CONC 34.8 g/dl (32.0-36.5); MEAN CORPUSCULAR VOLUME 91.5 fl (80.0-96.0); MONO # 1.4 10^3/uL (0.0-0.8); MONO % 9.5 % (2.0-8.0); NEUTROPHILS # 7.1 10^3/uL (1.5-8.5); NEUTROPHILS % 48.4 % (36.0-66.0); PLATELET COUNT, AUTOMATED 285 10^3/uL (150-450); RED BLOOD COUNT 4.84 10^6/uL (4.30-6.10); WHITE BLOOD COUNT 14.6 10^3/uL (4.0-10.0)
[2023-10-03 18:33] LABS: INR 1.98; PARTIAL THROMBOPLASTIN TIME 43.9 SECONDS (24.8-34.2); PROTHROMBIN TIME 21.8 SECONDS (12.5-14.5)
[2023-10-03 19:05] LABS: ALBUMIN 3.9 G/DL (3.2-5.2); ALKALINE PHOSPHATASE 122 U/L (46-116); ALT/SGPT 23 U/L (7.0-40); AST/SGOT 16 U/L (<34); BILIRUBIN,DIRECT 0.1 MG/DL (<0.4); BILIRUBIN,TOTAL 0.5 MG/DL (0.3-1.2); BLOOD UREA NITROGEN 11 MG/DL (9-23); CALCIUM LEVEL 8.9 MG/DL (8.5-10.1); CARBON DIOXIDE LEVEL 27 MMOL/L (20-31); CHLORIDE LEVEL 106 MMOL/L (98-107); CREATININE FOR GFR 0.95 MG/DL (0.70-1.30); GLOMERULAR FILTRATION RATE > 60.0 (>56); GLUCOSE, FASTING 121 MG/DL (60-100); POTASSIUM SERUM 3.8 MMOL/L (3.5-5.1); SODIUM LEVEL 141 MMOL/L (136-145); TOTAL PROTEIN 7.2 G/DL (5.7-8.2)
[2023-10-03 19:42] VITALS: BP 145/70; TEMP 97.8; O2SAT 98
== END 2023-10-03 19:57 | disposition home or self-care (01) ==
LOC: M ED 17:42
DX: M79.661 Pain in right lower leg (principal); K21.9 Gastro-esophageal reflux disease without esophagitis; I10 Essential (primary) hypertension; Z91.048 Other nonmedicinal substance allergy status; Z86.718 Personal history of other venous thrombosis and embolism; Z79.01 Long term (current) use of anticoagulants; Z79.2 Long term (current) use of antibiotics; Z79.83 Long term (current) use of bisphosphonates; Z79.899 Other long term (current) drug therapy

== ENCOUNTER 2024-03-03 11:50 | Emergency (ER) | payer OTHER ==
[~2024-03-03] VITALS: Ht 177.8 cm; Wt 125.5 kg
[~2024-03-03 11:50] MED LIST changes: +GABA-1635 PO; -GABA800T4 PO
[2024-03-03] MEDS ORDERED: TIZA10TA (11:55)
[2024-03-03] MEDS ORDERED: WARF-23 (11:55)
[2024-03-03] MEDS ORDERED: UBRO100T (11:59)
[2024-03-03] MEDS ORDERED: TOPI-21 (11:59)
[2024-03-03] MEDS: IPRATROPIUM 0.5MG/ALBUTEROL 2.5MG INH SOL UD 3ML (DUONEB) NEB PRN ×2 (12:37→12:46)
[2024-03-03] MEDS ORDERED: IPRATROPIUM 0.5MG/ALBUTEROL 2.5MG INH SOL UD 3ML (DUONEB) NEB PRN (12:42)
[2024-03-03 13:03] LABS: VENOUS HCO3 29.4 MMOL/L (23.0-27.0); VENOUS O2 SATURATION 59.2 % (60.0-80.0); VENOUS PARTIAL PRESSURE CO2 68.3 mmHg (38.0-50.0); VENOUS PARTIAL PRESSURE O2 31.6 mmHg (30.0-50.0); VENOUS PH 7.252 UNITS (7.330-7.430); VENOUS STANDARD HCO3 23.4 MMOL/L; VENOUS TOTAL CO2 31.5 MMOL/L (24.0-28.0)
[2024-03-03 13:03] LABS: BASO # 0.1 10^3/uL (0.0-0.2); EOS # 0.6 10^3/uL (0.0-0.5); EOS % 5.3 % (0.0-3.0); HEMATOCRIT 43.9 % (42.0-52.0); HEMOGLOBIN 15.5 g/dl (13.5-17.5); LYMPH # 3.5 10^3/uL (1.5-5.0); LYMPH % 31.8 % (24.0-44.0); MEAN CORPUSCULAR HEMOGLOBIN 32.5 pg (27.0-33.0); MEAN CORPUSCULAR HGB CONC 35.3 g/dl (32.0-36.5); MONO # 0.9 10^3/uL (0.0-0.8); MONO % 8.1 % (2.0-8.0); NEUTROPHILS # 5.8 10^3/uL (1.5-8.5); NEUTROPHILS % 53.3 % (36.0-66.0); PLATELET COUNT, AUTOMATED 257 10^3/uL (150-450); RED BLOOD COUNT 4.77 10^6/uL (4.30-6.10); WHITE BLOOD COUNT 10.9 10^3/uL (4.0-10.0)
[2024-03-03 13:26] LABS: ALBUMIN 3.8 G/DL (3.2-5.2); ALKALINE PHOSPHATASE 103 U/L (46-116); ALT/SGPT 26 U/L (7.0-40); AST/SGOT 46 U/L (<34); BILIRUBIN,DIRECT 0.1 MG/DL (<0.4); BILIRUBIN,TOTAL 0.5 MG/DL (0.3-1.2); BLOOD UREA NITROGEN 13 MG/DL (9-23); CALCIUM LEVEL 9.4 MG/DL (8.5-10.1); CARBON DIOXIDE LEVEL 29 MMOL/L (20-31); CHLORIDE LEVEL 108 MMOL/L (98-107); CREATININE FOR GFR 0.95 MG/DL (0.70-1.30); GLOMERULAR FILTRATION RATE > 60.0 (>56); GLUCOSE, FASTING 103 MG/DL (60-100); POTASSIUM SERUM 4.7 MMOL/L (3.5-5.1); SODIUM LEVEL 142 MMOL/L (136-145); TOTAL PROTEIN 7.6 G/DL (5.7-8.2)
[2024-03-03 14:07] VITALS: BP 129/70; TEMP 97.8; O2SAT 98
== END 2024-03-03 14:23 | disposition home or self-care (01) ==
LOC: M ED 11:50
DX: J68.8 Other respiratory conditions due to chemicals, gases, fumes and vapors (principal); I10 Essential (primary) hypertension; F17.200 Nicotine dependence, unspecified, uncomplicated; F19.10 Other psychoactive substance abuse, uncomplicated; Z91.048 Other nonmedicinal substance allergy status; Y92.002 Bathroom of unspecified non-institutional (private) residence as the place of occurrence of the external cause; Y93.E5 Activity, floor mopping and cleaning; Y99.9 Unspecified external cause status; Z79.02 Long term (current) use of antithrombotics/antiplatelets; Z79.83 Long term (current) use of bisphosphonates; Z79.899 Other long term (current) drug therapy; Z79.01 Long term (current) use of anticoagulants

== ENCOUNTER 2024-11-17 16:53 | Emergency (ER) | payer OTHER ==
[~2024-11-17] VITALS: Ht 177.8 cm; Wt 119.5 kg
[~2024-11-17 16:53] MED LIST changes: +ACET-683 PO; +ACYC-438 PO; -ACYC1TAB PO; +AIMO70IN SC; +ALBU8.5H INH; +ALLO300T2 PO; +AMMO12CR4 TOP; +ATOR1TAB21 PO; +AZEL137S8 NARES; +BACIOIN5 TOP; +BRIN10TA4 PO; +CEPH25SS PO; +CEPH500C PO; +DICL100G10 TOP; +EQ S0.65 NARES; +EZET10TA21 PO; +FLON1SPR NARES; +HYDR50TA70 PO; +LEVO75TAB PO; +METR-265 PO; +MOME13HF4 INH; +OLOP5DRO17 OU; +ONDA-84 PO; +OPTI0.5D2 OP; +PERI12LIQ PO; +TIZA10TA PO; +TOPI-21 PO; +UBRO100T PO; +VITS42.53 TOP; +WARF-23 PO; +ZINC220CA PO
[2024-11-17 18:58] LABS: BASO # 0.1 10^3/uL (0.0-0.2); BASO % 0.6 % (0.0-1.0); EOS # 0.2 10^3/uL (0.0-0.5); EOS % 2.2 % (0.0-3.0); LYMPH # 3.0 10^3/uL (1.5-5.0); LYMPH % 27.5 % (24.0-44.0); MONO # 0.8 10^3/uL (0.0-0.8); MONO % 7.6 % (2.0-8.0); NEUTROPHILS # 6.7 10^3/uL (1.5-8.5); NEUTROPHILS % 61.4 % (36.0-66.0); PLATELET COUNT, AUTOMATED 336 10^3/uL (150-450)
[2024-11-17 19:28] LABS: ALT/SGPT 18.0 U/L (7.0-40); AST/SGOT 21.0 U/L (<34); CALCIUM LEVEL 8.0 MG/DL (8.5-10.1); CARBON DIOXIDE LEVEL 27.0 MMOL/L (20-31); CHLORIDE LEVEL 106.0 MMOL/L (98-107); CREATININE FOR GFR 1.2 MG/DL (0.70-1.30); GLOMERULAR FILTRATION RATE 71.9 (>56); POTASSIUM SERUM 3.9 MMOL/L (3.5-5.1); SODIUM LEVEL 143.0 MMOL/L (136-145)
[2024-11-17] MEDS ORDERED: LEVO1TAB40 PO (20:31)
[2024-11-17] MEDS ORDERED: METR-265 PO (20:31)
[2024-11-17 20:37] VITALS: BP 115/57; TEMP 98.1; O2SAT 98
== END 2024-11-17 21:02 | disposition home or self-care (01) ==
LOC: M ED 16:53 → EEVIPCON 16:53 → M ED 21:02
DX: L97.429 Non-pressure chronic ulcer of left heel and midfoot with unspecified severity (principal); R00.1 Bradycardia, unspecified; F41.9 Anxiety disorder, unspecified; F32.A Depression, unspecified; E11.9 Type 2 diabetes mellitus without complications; E78.5 Hyperlipidemia, unspecified; G47.30 Sleep apnea, unspecified; M54.50 Low back pain, unspecified; Z86.711 Personal history of pulmonary embolism; Z86.718 Personal history of other venous thrombosis and embolism; Z91.048 Other nonmedicinal substance allergy status; Z79.52 Long term (current) use of systemic steroids; Z79.02 Long term (current) use of antithrombotics/antiplatelets; Z79.899 Other long term (current) drug therapy; Z79.01 Long term (current) use of anticoagulants

== ENCOUNTER 2024-12-15 17:05 | Emergency (ER) | payer OTHER ==
[~2024-12-15] VITALS: Ht 177.8 cm; Wt 120.5 kg
[~2024-12-15 17:05] MED LIST changes: +LEVO1TAB40 PO
[2024-12-15] MEDS: NS (Normal Saline) 0.9% 1,000 ML IV ONE (18:34)
[2024-12-15 18:53] LABS: BASO # 0.1 10^3/uL (0.0-0.2); BASO % 0.4 % (0.0-1.0); EOS # 0.1 10^3/uL (0.0-0.5); EOS % 0.9 % (0.0-3.0); LYMPH # 2.3 10^3/uL (1.5-5.0); LYMPH % 16.8 % (24.0-44.0); MONO # 1.4 10^3/uL (0.0-0.8); MONO % 10.4 % (2.0-8.0); NEUTROPHILS # 9.6 10^3/uL (1.5-8.5); NEUTROPHILS % 71.0 % (36.0-66.0); PLATELET COUNT, AUTOMATED 361 10^3/uL (150-450)
[2024-12-15 19:07] LABS: INR 3.03
[2024-12-15 19:16] LABS: ALT/SGPT 29 U/L (7.0-40); AST/SGOT 28 U/L (<34); CALCIUM LEVEL 8.2 MG/DL (8.5-10.1); CARBON DIOXIDE LEVEL 26 MMOL/L (20-31); CHLORIDE LEVEL 102 MMOL/L (98-107); CREATININE FOR GFR 0.92 MG/DL (0.70-1.30); GLOMERULAR FILTRATION RATE > 90.0 (>56); POTASSIUM SERUM 3.5 MMOL/L (3.5-5.1); SODIUM LEVEL 141 MMOL/L (136-145)
[2024-12-15 19:29] LABS: C REACTIVE PROTEIN QUANTITATIV 17.59 MG/DL (<1.0)
[2024-12-15] MEDS: DALBAVANCIN 1,500 MG in D5W 250 ML IV ONE (20:31)
[2024-12-15 21:05] VITALS: O2SAT 95
[2024-12-15 21:15] VITALS: BP 113/56; TEMP 98.7
== END 2024-12-15 21:31 | disposition home or self-care (01) ==
LOC: M ED 17:05
DX: E11.621 Type 2 diabetes mellitus with foot ulcer (principal); I45.10 Unspecified right bundle-branch block; K21.9 Gastro-esophageal reflux disease without esophagitis; I10 Essential (primary) hypertension; F41.9 Anxiety disorder, unspecified; F32.A Depression, unspecified; G43.909 Migraine, unspecified, not intractable, without status migrainosus; G47.30 Sleep apnea, unspecified; Z86.718 Personal history of other venous thrombosis and embolism; Z79.01 Long term (current) use of anticoagulants; Z91.048 Other nonmedicinal substance allergy status; Z79.52 Long term (current) use of systemic steroids; Z79.02 Long term (current) use of antithrombotics/antiplatelets; Z79.2 Long term (current) use of antibiotics; Z79.899 Other long term (current) drug therapy; Z79.83 Long term (current) use of bisphosphonates
CPT/HCPCS: 71045; 73630; 80048; 80076; 82150; 83605; 84145; 85025; 85610; 85730; 86140; 86850; 86900; 86901; 87040; 87070; 87077; 87186; 87205; 93005; 93041; 94760; 96374; 99285; J0875